=== PATIENT | female | born 1945 | race Caucasian/White ===

== ENCOUNTER 2016-02-14 08:46 | Emergency (ER) | payer MEDICARE, BC ==
[2016-02-14 08:57] VITALS: BP 116/67
--- NOTE | 2016-02-14 09:11 | ERNOTE ---
Medical Problem HPI - General Chief Complaint: Dyspnea Source: patient Exam Limitations: dementia - Immun/Allergies/Home Medications Immunizations: IMMUNIZATION HX Immunizations Up to Date Yes History of Influenza Vaccine More Information Required Hx Pneumococcal Vaccination No Allergies/Adverse Reactions: Allergies phenobarbital Adverse Reaction (Mild, Verified 02/14/16 08:57) rash phenytoin sodium [From Dilantin] Adverse Reaction (Mild, Verified 02/14/16 08:57 ) rash phenytoin sodium extended [From Dilantin] Adverse Reaction (Mild, Verified 02/13 08:57) rash Home Medications: HOME MEDICATIONS Aspirin [Aspirin EC] 81 mg PO DAILY 12/28/14 [Last Taken 03/15/15] Cholecalciferol (Vitamin D3) [Vitamin D3] 10,000 unit PO DAILY 12/28/14 [Last Taken 03/15/15] Levothyroxine Sodium [Synthroid] 88 mcg PO DAILY 12/28/14 [Last Taken 03/15/15] Montelukast Sodium [Singulair] 10 mg PO HS 12/28/14 [Last Taken 03/15/15] Valproic Acid (As Sodium Salt) [Valproic Acid] 250 mg PO BID 12/28/14 [Last Taken 03/15/15] Citalopram Hydrobromide [Citalopram HBr] 40 mg PO DAILY #30 tablet 03/17/15 [ Last Taken Unknown] Vit B12/Lmefolate Ca/Vit B6/B2 [Cerefolin Tablet] 1 each PO DAILY 03/17/15 [ Last Taken Unknown] Memantine HCl [Namenda] 5 mg PO DAILY 11/15/15 [Last Taken Unknown] - History of Present History Narrative: Patient has not been feeling well for 2-3 days per family. Patient denies any complaints. Does not know why she is here today. Review of Systems - Review of Systems Constitutional: Absent: recent illness, fever EYE: Absent: vision changes ENT: Absent: ear pain, nose congestion, nasal drainage, sore throat Respiratory: Absent: shortness of breath, cough Cardiology: Absent: chest pain Gastrointestinal/Abdominal: Absent: nausea, vomiting, abdominal pain Genitourinary: Absent: frequency, dysuria Skin: Absent: rash Neurological: Absent: headache, weakness, numbness - Patient's Past Medical History Patient History - Medical: Alzheimer's Disease, Anxiety, Dementia, Depression, Hypothyroidism, Seizures Patient History - Cardiac/Respiratory: No pertinent hx, Hyperlipidemia Patient History - Cancer: No Hx of Cancer Patient History - Surgical Procedures: Hysterectomy - Family History Mother Family History - Medical: Father Family History - Medical: - Social History Living Situations: home Does anyone smoke in the home?: No Alcohol Use: none Drug Use: none Physical Exam - Physical Exam General Appearance: Present: wd/wn, alert, no apparent distress Eye Exam: Normal inspection: bilateral, PERRL: bilateral, EOMI: bilateral Ears, Nose, Throat: Present: normal ENT inspection, hearing grossly normal, normal pharynx Neck: Present: normal inspection Respiratory: Present: no respiratory distress, normal breath sounds, no accessory muscle use, lungs clear Cardiovascular/Chest: Present: regular rate, rhythm, no murmur Gastrointestinal/Abdominal: Present: nontender, soft Neurological Exam: Present: alert, normal mood/affect, no motor/sensory deficits , cement paver II-XII nml as tested, other - knows month, but not sure about day or year , knows location, does not know who her doctor is Skin Exam: Present: normal color, warm/dry Lymphatic Exam: Present: no adenopathy ED Progress - Results and Orders Patient's Lab Results:: I have reviewed the patient's lab results. - Vital Signs Patient's Vital Signs:: I have reviewed the patient's vital signs. Vital Signs: Vital Signs 02/14/16 08:52 Temperature 36.6 C Pulse Rate 83 Respiratory 16 Rate Blood Pressure 116/67 O2 Sat by Pulse 99 Oximetry - Progress/Reassessment Chief Complaint: Dyspnea Progress Note-Subjective: 02/14/16 11:04 discussed results with patient and son Departure - Departure Clinical Impression: Generalized weakness Disposition: Home self-care Condition: Good Instructions: Weakness, [id number] Additional Instructions: call your doctor for follow up Referrals: Steve Jenkins MD [Staff Physician] -
[2016-02-14 09:25] LABS: Hematocrit 44.4 % (37.0-47.0); Hemoglobin 15.1 gm/dL (12.5-16.0); Mean Cell Volume 96.5 fl (78-100); Mean Corpuscular Hemoglobin 32.8 pg (27-31); Mean Platelet Volume 9.3 fl (6.0-9.5); Neutrophil # 4.7 K/mm3 (1.3-6.0); Neutrophil % 61.8 % (42-75.0); Platelet Count 223 K/mm3 (150-450); Red Cell Distribution Width 12.8 % (11.5-14.0); White Blood Count 7.5 K/mm3 (4.0-10.5)
[2016-02-14 09:39] LABS: Albumin * 3.7 gm/dl (3.4-5.0); Anion Gap 16.4 mmol/L (6.8-13.8); BUN/Creatinine Ratio 18.2 (9.0-21.6); Bilirubin, Total 0.5 mg/dL (0.0-1.1); Calcium * 9.1 mg/dL (7.9-10.9); Carbon Dioxide 27.7 mmol/L (24-32.6); Potassium 3.1 mmol/L (3.4-4.6); Total Protein 7.6 gm/dL (6.2-8.2); Valproic Acid 88.5 mcg/mL (50.0-100.0)
[2016-02-14 10:35] LABS: Urine Bilirubin Negative (NEGATIVE); Urine Blood Negative /ul (NEGATIVE); Urine Ketone Negative (NEGATIVE); Urine Nitrite Negative (NEGATIVE); Urine Protein 30 mg/dL (NEGATIVE); Urine Specific Gravity 1.025 SP.GR. (1.005-1.010); Urine Urobilinogen Normal (NORMAL)
[2016-02-14 10:43] LABS: Urine Appearance Clear; Urine Bacteria TRACE; Urine Color Yellow; Urine RBC 0-5 /hpf (0-5)
== END 2016-02-14 11:10 | disposition home or self-care (01) ==
LOC: ER 08:46
DX: R53.1 Weakness (principal); G30.9 Alzheimer's disease, unspecified; F02.80 Dementia in other diseases classified elsewhere, unspecified severity, without behavioral disturbance, psychotic disturbance, mood disturbance, and anxiety

== ENCOUNTER 2016-04-29 10:54 | Observation (INO) | payer OTHER, MEDICARE ==
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
[2016-04-29] MEDS ORDERED: NORMAL SALINE 1,000 ML IV ONE (12:58)
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
[2016-04-29] MEDS: ACETAMINOPHEN 325 MG TABLET PO PRN (18:51)
[2016-04-29 20:38] LABS: Hematocrit 34.4 % (37.0-47.0); Hemoglobin 11.9 gm/dL (12.5-16.0); Mean Cell Volume 96.6 fl (78-100); Mean Corpuscular Hemoglobin 33.4 pg (27-31); Mean Corpuscular Hgb Conc 34.6 g/dl (32-36); Mean Platelet Volume 9.7 fl (6.0-9.5); Neutrophil % 74.5 % (42-75.0); Platelet Count 164 K/mm3 (150-450); Red Blood Count 3.56 M/mm3 (4.2-5.4); Red Cell Distribution Width 12.3 % (11.5-14.0); White Blood Count 12.1 K/mm3 (4.0-10.5)
[2016-04-29 20:55] LABS: Albumin * 2.8 gm/dl (3.4-5.0); BUN/Creatinine Ratio 12.5 (9.0-21.6); Bilirubin, Total 0.5 mg/dL (0.0-1.1); Ca. Corrected For Albumin 8.8 mg/dL (8.4-10.2); Calcium * 8.2 mg/dL (7.9-10.9); Carbon Dioxide 26.1 mmol/L (24-32.6); Potassium 4.1 mmol/L (3.4-4.6); Total Protein 5.9 gm/dL (6.2-8.2)
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
[2016-04-30] MEDS: ACETAMINOPHEN 325 MG TABLET PO PRN ×2 (01:16→06:41)
[2016-04-30 06:52] VITALS: BP 125/55
[2016-04-30] MEDS ORDERED: VITAMIN B COMP W-C 1 TAB TABLET PO SCH (09:00)
[2016-04-30] MEDS ORDERED: B2 PO SCH (09:00)
[2016-04-30] MEDS ORDERED: MEMANTINE HCL 10 MG TABLET PO SCH (09:00)
[2016-04-30] MEDS ORDERED: busPIRone HCL 5 MG TABLET PO SCH (09:00)
[2016-04-30] MEDS ORDERED: VALPROIC ACID 250 MG/5 ML PO SCH ×2 (09:00→21:00)
[2016-04-30] MEDS ORDERED: LMEFOLATE CA PO SCH (09:00)
[2016-04-30] MEDS ORDERED: CHOLECALCIFEROL 5,000 UNIT TABLET PO SCH (09:00)
[2016-04-30] MEDS ORDERED: ASPIRIN 81 MG TABLET.DR PO SCH (09:00)
[2016-04-30] MEDS ORDERED: VIT B12 PO SCH (09:00)
[2016-04-30] MEDS ORDERED: VIT B6 PO SCH (09:00)
[2016-04-30] MEDS ORDERED: ONDANSETRON 4 MG TAB.RAPDIS PO STA (10:10)
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
[2016-04-30] MEDS ORDERED: CITALOPRAM HYDROBROMIDE 20 MG TABLET PO SCH (21:00)
[2016-04-30] MEDS ORDERED: MONTELUKAST SODIUM 10 MG TABLET PO SCH (21:00)
== END 2016-04-30 11:46 | disposition home or self-care (01) ==
LOC: ER 10:54 → MS 16:21
PROVIDERS: ADMIT Internal Medicine; ATTEND Internal Medicine
PROC: 0RSKXZZ Reposition Left Shoulder Joint, External Approach (ICD-10-PCS; principal; 2016-04-29)
PROC: 0PSDXZZ Reposition Left Humeral Head, External Approach (ICD-10-PCS; 2016-04-29)
DX: S42.252A Displaced fracture of greater tuberosity of left humerus, initial encounter for closed fracture (principal); S43.015A Anterior dislocation of left humerus, initial encounter; G30.9 Alzheimer's disease, unspecified; F02.80 Dementia in other diseases classified elsewhere, unspecified severity, without behavioral disturbance, psychotic disturbance, mood disturbance, and anxiety; E03.9 Hypothyroidism, unspecified; V43.62XA Car passenger injured in collision with other type car in traffic accident, initial encounter; Y92.411 Interstate highway as the place of occurrence of the external cause
CPT/HCPCS: 23665; 36415; 71010; 73020; 73030; 73060; 80053; 85025; 99284; G0378

== ENCOUNTER 2016-10-29 22:21 | Inpatient (IN) | payer MEDICARE, BC ==
[2016-10-29 22:55] LABS: Hematocrit 34.9 % (37.0-47.0); Hemoglobin 12.1 gm/dL (12.5-16.0); Mean Cell Volume 96.1 fl (78-100); Mean Corpuscular Hemoglobin 33.3 pg (27-31); Mean Corpuscular Hgb Conc 34.7 g/dl (32-36); Mean Platelet Volume 9.2 fl (6.0-9.5); Neutrophil # 5.6 K/mm3 (1.3-6.0); Neutrophil % 66.7 % (42-75.0); Platelet Count 217 K/mm3 (150-450); Red Blood Count 3.63 M/mm3 (4.2-5.4); Red Cell Distribution Width 12.6 % (11.5-14.0); White Blood Count 8.4 K/mm3 (4.0-10.5)
[2016-10-29 23:09] LABS: Albumin * 2.9 gm/dl (3.4-5.0); Bilirubin, Total 0.2 mg/dL (0.0-1.1); Ca. Corrected For Albumin 9.1 mg/dL (8.4-10.2); Calcium * 8.5 mg/dL (7.9-10.9); Carbon Dioxide 26.5 mmol/L (24-32.6); Total Protein 6.4 gm/dL (6.2-8.2)
[2016-10-29 23:15] LABS: Anion Gap 14.6 mmol/L (6.8-13.8); Potassium 3.1 mmol/L (3.4-4.6)
[2016-10-29 23:23] LABS: Urine Bilirubin Negative (NEGATIVE); Urine Blood Negative /ul (NEGATIVE); Urine Ketone Negative (NEGATIVE); Urine Nitrite Negative (NEGATIVE); Urine Protein Negative (NEGATIVE); Urine Specific Gravity 1.025 SP.GR. (1.005-1.010); Urine Urobilinogen Normal (NORMAL)
[2016-10-29] MEDS ORDERED: LEVOFLOXACIN/D5W 500 MG/100 ML BAG IV SCH (23:30)
[2016-10-29] MEDS: NORMAL SALINE IV PRN (23:33)
[2016-10-29 23:36] LABS: Urine Amorphous Sediment Few - 1+ (NONE-FEW); Urine Appearance Clear; Urine Bacteria None Seen; Urine Color Yellow; Urine RBC None Seen /hpf (0-5); Urine WBC None Seen /hpf (0-5)
[2016-10-29 23:38] LABS: Cocaine Ur Negative (NEGATIVE); Urine Barbiturate Negative (NEGATIVE); Urine Benzodiazepines Negative (NEGATIVE); Urine PCP Negative (NEGATIVE); Urine THC Negative (NEGATIVE)
[2016-10-29 23:46] LABS: Urine Opiates Negative (NEGATIVE)
[2016-10-29] MEDS ORDERED: POTASSIUM CHLORIDE 20 MEQ TABLET.SA PO ONE (23:51)
[2016-10-29] MEDS ORDERED: POTASSIUM CHLORIDE 20 MEQ TABLET.SA ONE (23:53)
--- NOTE | 2016-10-29 23:55 | ERNOTE ---
Neuro HPI ER Record Time Seen by Provider: 10/29/16 22:27 Source: family, EMS Exam Limitations: no limitations Immunizations: IMMUNIZATION HX Immunizations Up to Date unknown History of Influenza Vaccine More Information Required Hx Pneumococcal Vaccination No Allergies/Adverse Reactions: Allergies Allergy/AdvReac Type Severity Reaction Status Date / Time buspirone AdvReac Mild Fatigue Verified 10/29/16 23:03 phenobarbital AdvReac Mild rash Verified 02/14/16 08:57 phenytoin sodium AdvReac Mild rash Verified 02/14/16 08:57 [From Dilantin] phenytoin sodium extended AdvReac Mild rash Verified 02/14/16 08:57 [From Dilantin] Home Medications: HOME MEDICATIONS Aspirin [Aspirin EC] 81 mg PO DAILY 12/28/14 [Last Taken 03/15/15] Montelukast Sodium [Singulair] 10 mg PO HS 12/28/14 [Last Taken 03/15/15] Valproic Acid (As Sodium Salt) [Valproic Acid] 250 mg PO BID 12/28/14 [Last Taken 03/15/15] Memantine HCl [Namenda] 5 mg PO HS 11/15/15 [Last Taken Unknown] Acetaminophen [Tylenol] 2 tab PO Q6H 04/29/16 [Last Taken Unknown] Levothyroxine Sodium [Synthroid] 88 mcg PO DAILY 04/29/16 [Last Taken Unknown] Vit B Comp/C/FA/Iron/Vit E [Vitamin B Complex Tablet] 1 each PO DAILY 04/29/16 [ Last Taken Unknown] busPIRone HCL [Buspar] 10 mg PO BID 04/29/16 [Last Taken Unknown] Ondansetron [Zofran Odt] 4 mg PO Q6H PRN #20 tab 04/30/16 [Last Taken Unknown] Citalopram Hydrobromide [Celexa] 40 mg PO HS 10/29/16 [Last Taken Unknown] Ondansetron HCl [Zofran] 4 mg PO PRN PRN 10/29/16 [Last Taken Unknown] Potassium Chloride [Klor-Con Sprinkle] 10 meq PO DAILY 10/29/16 [Last Taken Unknown] - History of Present Illness Narrative: This patient has a history of seizure disorder that she has had her whole life. The reason she is brought in by EMS because son noted that the patient had to 15 second episodes of tonic-clonic activity. Vision is also had a recent history of UTI. Son also states that mother has significant dementia. Review of Systems - Review of Systems Constitutional: Present: no symptoms reported EYE: Present: no symptoms reported ENT: Present: no symptoms reported Respiratory: Present: no symptoms reported Cardiology: Present: no symptoms reported Gastrointestinal/Abdominal: Present: no symptoms reported Genitourinary: Present: no symptoms reported Musculoskeletal: Present: no symptoms reported - Patient's Past Medical History Patient History - Medical: History Unknown, Alzheimer's Disease, Anxiety, Dementia, Depression, Hypothyroidism, Seizures Patient History - Cardiac/Respiratory: History Unknown Patient History - Cancer: History Unknown Patient History - Surgical Procedures: Noncontributory, Hysterectomy Patient History - Other: None LMP (females 10-50): Menopausal - Family History Mother Family History - Medical: Father Family History - Medical: - Social History Living Situations: home Abuse History: No History of abuse Psych History: Hx of Anxiety Does anyone smoke in the home?: No Alcohol Use: none Drug Use: none - Immunizations Immunizations Up to Date: - unknown Hx Pneumococcal Vaccination: No History of Influenza Vaccine: More Information Required to Determine Physical Exam - Physical Exam General Appearance: Present: wd/wn, other - patient does have dementia and she stares at me and not from time to time however she is not responding verbally so I am unable to tell if she is alert and oriented to time place or person Eye Exam: Normal inspection: bilateral, PERRL: bilateral, EOMI: bilateral Ears, Nose, Throat: Present: normal ENT inspection Neck: Present: normal inspection, nontender Respiratory: Present: no respiratory distress, normal breath sounds, no accessory muscle use, chest nontender, lungs clear Cardiovascular/Chest: Present: regular rate, rhythm, no murmur, normal peripheral pulses Gastrointestinal/Abdominal: Present: normal bowel sounds, nontender, nondistended, soft Back Exam: Present: normal inspection Extremity Exam: Present: normal inspection, normal range of motion Neurological Exam: Present: other - patient is awake but she is not speaking so I am unable to tell if she is alert and oriented she does not have any focal neurological deficits facial droop ED Progress - Results and Orders Patient's Lab Results:: I have reviewed the patient's lab results. - Vital Signs Patient's Vital Signs:: I have reviewed the patient's vital signs. Vital Signs: Vital Signs 10/29/16 10/29/16 10/29/16 22:30 23:07 23:34 Temperature 36.6 C 37.6 C H Pulse Rate 109 H 105 H 100 Respiratory 17 19 Rate Blood Pressure 150/66 146/56 143/92 O2 Sat by Pulse 92 95 98 Oximetry - X-Ray X-Ray #1 X-Ray: chest - CT/Ultrasound CT/Ultrasound Narrative: DT was read by radiologist as negative - Progress/Reassessment Chief Complaint: Seizure Activity Plan - Plan Plan: Patient head CT is negative for an acute bleed her blood work reveals that she has lactic acid of 3.4 at this time we will go ahead and admit the patient for sepsis hospitalist with consultation. Departure Clinical Impression: Sepsis Qualifiers: Sepsis type: sepsis due to unspecified organism Qualified Code(s): A41.9 - Sepsis, unspecified organism - Departure Disposition: [facility] Condition: Fair Referrals: Steve Jenkins MD [Primary Care Provider] -
[2016-10-30] MEDS ORDERED: LORazepam 2 MG/ML DISP.SYRIN ONE ×2 (00:11→00:14)
[2016-10-30] MEDS ORDERED: LORazepam 2 MG/ML DISP.SYRIN IV ONE (00:14)
[2016-10-30] MEDS ORDERED: LORazepam 2 MG/ML DISP.SYRIN IV STA (00:24)
[2016-10-30] MEDS: NORMAL SALINE IV PRN ×2 (00:31→02:30)
[2016-10-30] MEDS ORDERED: ACETAMINOPHEN 325 MG TABLET PO ONE (01:28)
[2016-10-30] MEDS ORDERED: ACETAMINOPHEN 650 MG SUPP.RECT RC STA (01:56)
[2016-10-30] MEDS ORDERED: ACETAMINOPHEN 650 MG SUPP.RECT ONE (01:58)
[2016-10-30] MEDS ORDERED: LORazepam 2 MG/ML DISP.SYRIN IV PRN (02:05)
[2016-10-30] MEDS ORDERED: METOPROLOL TARTRATE 1 MG/ML AMPUL IV ONE (02:12)
--- NOTE | 2016-10-30 03:27 | HP ---
Chief Complaint - Chief Complaint Date of Service: 10/30/16 Time of Service: 02:10 Chief Complaint: Seizure activities History of Present Illness: 71 years old female adm to the hospital with reports of seizure activities at home. PMH significant for dementia,hypothyroidism,childhood Epilepsy, depression ,hyperlipidemia and anxiety. Per Reinaldo (son) pt lives alone and her sons spend alternating days with her. Today while at home with Reinaldo approximately 8pm pt had a witness Tonic clonic seizure. At 10:30pm she had another episode of tonic clonic seizure. The family was concerned and brought her to the ER. pt last episode of seizure was a year ago, she had 1-[address] Jenkins adjusted her medications. since then today is the first time she is having a episode. 2 weeks ago she was treated with Bactrim x10 days for UTI. In ER UA negative, CXR : No acute cardiopulmonary process. Reinaldo denies pt having fever, chills or have change in her behavior. While in ER she had another episode of Tonic Clonic seizure and bit her tongue. Lactic acid 3.4--->3.9, temp 38--->37.9 and BP elevated likely due to seizure activity and 3L IVF bolus given. Plan of care discussed with son he verbalized understand and agrees. - Patient's Past Medical History Patient History - Medical: History Unknown, Alzheimer's Disease, Anxiety, Dementia, Depression, Hypothyroidism, Seizures Patient History - Cardiac/Respiratory: History Unknown Patient History - Cancer: History Unknown Patient History - Surgical Procedures: Noncontributory, Hysterectomy, Other - closed left shoulder fx dislocation reduction Patient History - Other: None LMP (females 10-50): Menopausal - Family History Mother Family History - Medical: Father Family History - Medical: - Social History Living Situations: home Abuse History: No History of abuse Psych History: Hx of Anxiety, Hx of Depression Does anyone smoke in the home?: No Smoking Status: Unknown if ever smoked Have you smoked in the past 12 months: No Alcohol Use: none Drug Use: none - Immunizations Immunizations Up to Date: - unknown Hx Pneumococcal Vaccination: No History of Influenza Vaccine: More Information Required to Determine Review Of Systems (GEN) - Review of Systems Generalized/Overall Review: Present: No Symptoms Reported EENTM: Present: No Symptoms Reported Respiratory: Present: No Symptoms Reported Cardiac: Present: No Symptoms Reported Abdominal: Present: No Symptoms Reported Genitourinary: Present: No Symptoms Reported Musculoskeletal: Present: No Symptoms Reported Neurological: Present: Seizure Skin: Present: No Symptoms Reported Endocrine: Present: No Symptoms Reported Additional Comments: unable to obtain information from pt. Pt has history of dementia and s/p seizure and currently in postictal state. Information obtained from son that was with patient during the day. Allergies/Adverse Reactions: Allergies Allergy/AdvReac Type Severity Reaction Status Date / Time buspirone AdvReac Mild Fatigue Verified 10/29/16 23:03 phenobarbital AdvReac Mild rash Verified 02/14/16 08:57 phenytoin sodium AdvReac Mild rash Verified 02/14/16 08:57 [From Dilantin] phenytoin sodium extended AdvReac Mild rash Verified 02/14/16 08:57 [From Dilantin] Home Medications: HOME MEDICATIONS Aspirin [Aspirin EC] 81 mg PO DAILY 12/28/14 [Last Taken 03/15/15] Montelukast Sodium [Singulair] 10 mg PO HS 12/28/14 [Last Taken 03/15/15] Valproic Acid (As Sodium Salt) [Valproic Acid] 250 mg PO BID 12/28/14 [Last Taken 03/15/15] Memantine HCl [Namenda] 5 mg PO HS 11/15/15 [Last Taken Unknown] Acetaminophen [Tylenol] 2 tab PO Q6H PRN 04/29/16 [Last Taken Unknown] Levothyroxine Sodium [Synthroid] 88 mcg PO DAILY 04/29/16 [Last Taken Unknown] Vit B Comp/C/FA/Iron/Vit E [Vitamin B Complex Tablet] 1 each PO DAILY 04/29/16 [ Last Taken Unknown] Citalopram Hydrobromide [Celexa] 40 mg PO HS 10/29/16 [Last Taken Unknown] Exam - Exam Vital Signs: Vital Signs - Last Taken Temp 37.4 C 10/30/16 02:15 Pulse 119 H 10/30/16 02:44 Resp 26 H 10/30/16 02:15 BP 122/80 10/30/16 02:44 Pulse Ox 99 10/30/16 02:44 Constitutional: Present: Well developed, Elderly ENT Exam: Present: hearing grossly normal Eye Exam: bilateral eye: normal inspection Neck: Present: full range of motion Back Exam: Present: normal inspection Breasts: Present: Exam deferred Respiratory: Present: chest non-tender, lungs clear, normal breath sounds, no respiratory distress Cardiovascular/Chest: Present: normal peripheral pulses, regular rate, rhythm, no chest tenderness Peripheral Pulses: dorsalis-pedis (R): 3+, dorsalis-pedis (L): 3+ Abdomen: Present: Normal bowel sounds, soft, nontender, nondistended Extremity: Present: normal range of motion, non-tender Skin Exam: Present: normal color, warm/dry Neurologic: Present: other - postictal. Absent: oriented x 3 Appearance: Present: impaired insight, impaired recent memory Thoughts: Present: other - dementia Diagnostic Studies: Abnormal Lab Results 10/30/16 Range/Units 01:00 Lactic Acid, Venous 3.9 H* (0.4-1.9) mmol/L Laboratory Results WBC 8.4 K/mm3 (4.0-10.5) 10/29/16 22:50 RBC 3.63 M/mm3 (4.2-5.4) L 10/29/16 22:50 Hgb 12.1 gm/dL (12.5-16.0) L 10/29/16 22:50 Hct 34.9 % (37.0-47.0) L 10/29/16 22:50 MCV 96.1 fl (78-100) 10/29/16 22:50 MCH 33.3 pg (27-31) H 10/29/16 22:50 MCHC 34.7 g/dl (32-36) 10/29/16 22:50 RDW 12.6 % (11.5-14.0) 10/29/16 22:50 Plt Count 217 K/mm3 (150-450) 10/29/16 22:50 MPV 9.2 fl (6.0-9.5) 10/29/16 22:50 Immature Gran % (Auto) 1.20 % (0.001-0.429) H 10/29/16 22:50 Immature Gran # (Auto) 0.10 K/mm3 (0.000-0.0310) H 10/29/16 22:50 Neutrophils % 66.7 % (42-75.0) 10/29/16 22:50 Lymphocytes % 23.0 % (20-51) 10/29/16 22:50 Monocytes % 8.3 % (0.0-9) 10/29/16 22:50 Eosinophils % 0.4 % (0.0-3.0) 10/29/16 22:50 Basophils % 0.4 % (0.0-1.0) 10/29/16 22:50 Nucleated RBC % 0.0 k/mm3 (0-1) 10/29/16 22:50 Neutrophils # 5.6 K/mm3 (1.3-6.0) 10/29/16 22:50 Lymphocytes # 1.9 k/mm3 (1.5-3.5) 10/29/16 22:50 Monocytes # 0.7 k/mm3 (0.0-1.0) 10/29/16 22:50 Eosinophils # 0.0 k/mm3 (0.0-0.7) 10/29/16 22:50 Absolute Basophils 0.0 k/mm3 (0.0-0.1) 10/29/16 22:50 Sodium 139 mmol/L (132-142) 10/29/16 22:50 Plasma Sodium 139 mmol/L (130-142) 10/29/16 22:50 Potassium 3.1 mmol/L (3.4-4.6) L 10/29/16 22:50 Chloride 101 mmol/L (97-106) 10/29/16 22:50 Carbon Dioxide 26.5 mmol/L (24-32.6) 10/29/16 22:50 Anion Gap 14.6 mmol/L (6.8-13.8) H 10/29/16 22:50 BUN 8 mg/dL (3-23) D 10/29/16 22:50 Creatinine 0.80 mg/dL (0.4-1.4) 10/29/16 22:50 Est GFR (Non-Af Amer) 75 mL/min (60-130) 10/29/16 22:50 BUN/Creatinine Ratio 10.0 (9.0-21.6) 10/29/16 22:50 Random Glucose 101 mg/dL (70-110) 10/29/16 22:50 Lactic Acid, Venous 3.9 mmol/L (0.4-1.9) H* 10/30/16 01:00 Calcium 8.5 mg/dL (7.9-10.9) 10/29/16 22:50 Calcium Adj for Albumin 9.1 mg/dL (8.4-10.2) 10/29/16 22:50 Total Bilirubin 0.2 mg/dL (0.0-1.1) 10/29/16 22:50 AST 18 U/L (0-48) 10/29/16 22:50 ALT 12 U/L (19-67) L 10/29/16 22:50 Alkaline Phosphatase 69 U/L (50-170) 10/29/16 22:50 Total Protein 6.4 gm/dL (6.2-8.2) 10/29/16 22:50 Albumin 2.9 gm/dl (3.4-5.0) L 10/29/16 22:50 Urine Color Yellow 10/29/16 23:00 Urine Appearance Clear 10/29/16 23:00 Urine pH 6.0 pH (5.0-7.0) 10/29/16 23:00 Ur Specific [place] 1.025 SP.GR. (1.005-1.010) 10/29/16 23:00 Urine Protein Negative mg/dL (NEGATIVE) 10/29/16 23:00 Urine Glucose (UA) Negative mg/dL (NEGATIVE) 10/29/16 23:00 Urine Ketones Negative mg/dL (NEGATIVE) 10/29/16 23:00 Urine Blood Negative /ul (NEGATIVE) 10/29/16 23:00 Urine Nitrate Negative (NEGATIVE) 10/29/16 23:00 Urine Bilirubin Negative mg/dl (NEGATIVE) 10/29/16 23:00 Urine Urobilinogen Normal EU/dl (NORMAL) 10/29/16 23:00 Ur Leukocyte Esterase Negative /ul (NEGATIVE) 10/29/16 23:00 Urine RBC None seen /hpf (0-5) 10/29/16 23:00 Urine WBC None seen /hpf (0-5) 10/29/16 23:00 Ur Epithelial Cells None seen /hpf (0-5) 10/29/16 23:00 Amorphous Sediment Few - 1+ (NONE-FEW) 10/29/16 23:00 Urine Bacteria None seen (NONE) 10/29/16 23:00 Urine Culture Comments No culture indicated 10/29/16 23:00 Urine Opiates Screen Negative (NEGATIVE) 10/29/16 23:00 Barbiturate Screen Negative (NEGATIVE) 10/29/16 23:00 Valproic Acid 60.1 mcg/mL (50.0-100.0) 10/29/16 22:50 Ur Phencyclidine Scrn Negative (NEGATIVE) 10/29/16 23:00 Urine Amphetamine Negative (NEGATIVE) 10/29/16 23:00 U Benzodiazepines Scrn Negative (NEGATIVE) 10/29/16 23:00 Urine Cocaine Screen Negative (NEGATIVE) 10/29/16 23:00 Urine Marijuana (THC) Negative (NEGATIVE) 10/29/16 23:00 Assessment/Plan - Narrative Narrative: ? sepsis vs Sirs : reactive from seizure activity. On adm lactic acid 3.4--->3.9 elevation possible due to seizure activity Temp 38--->37.9, WBC 8.4 3L bolus given in ER pt was treated 2 weeks ago for UTI, she completed Bactrim x10 days. Repeated UA negative levaquin was given in the ER, stopped due to concern in lowering seizure threshold Epilepsy: pt s/p seizure and currently postictal state CT head negative for acute bleeding pt with history of childhood seizures. Valproic acid BID and level currently 60.1 stable Pt prior seizures was a year ago and her medication was switched at the time. Safety measures while hospitalized Ativan PRN, continue to monitor supplemented oxygen. Hypertension: Bp was elevated secondary to seizure activity Its gradually improving monitor to monitor vital signs. Hyperlipidemia- stable Resume home medication Hypothyroidism- stable continue with home medications Depression- stable continue home medications Code status; DNR VTE ppx: SCD GI ppx: Pepcid Previous charts reviewed and spoke with relatives via phone conversation. Time 50 minutes - Assessment/Plan (1) Epilepsy Problem: Chronic (2) Hyperlipidemia Problem: Chronic (3) Hypothyroidism Problem: Chronic (4) Hypertension Problem: Chronic
[2016-10-30 06:46] LABS: Anion Gap 12.6 mmol/L (6.8-13.8); BUN/Creatinine Ratio 9.2 (9.0-21.6); Calcium * 7.9 mg/dL (7.9-10.9); Carbon Dioxide 27.7 mmol/L (24-32.6); Estimated Creat Clear 60.1; Potassium 4.3 mmol/L (3.4-4.6)
[2016-10-30 07:22] LABS: Troponin I 0.569 ng/ml (0.00-0.10)
[2016-10-30 07:24] LABS: CKMB 2.3 ng/mL (0.0-9.0)
[2016-10-30] MEDS ORDERED: DIVALPROEX SODIUM 250 MG TABLET.DR PO SCH (09:00)
[2016-10-30] MEDS: ENOXAPARIN SODIUM 40 MG/0.4 ML SYRG SC SCH (09:53)
[2016-10-30] MEDS ORDERED: ACETAMINOPHEN 325 MG TABLET PO PRN (14:10)
[2016-10-30] MEDS: VALPROIC ACID 250 MG/5 ML PO SCH ×2 (14:34→20:14)
[2016-10-30] MEDS: LEVOTHYROXINE SODIUM 88 MCG TABLET PO SCH (14:53)
[2016-10-30] MEDS: VITAMIN B COMP W-C 1 TAB TABLET PO SCH (14:53)
[2016-10-30] MEDS: NORMAL SALINE 1,000 ML IV PRN (21:10)
[2016-10-31] MEDS: NORMAL SALINE 1,000 ML IV PRN ×2 (07:17→17:29)
--- NOTE | 2016-10-31 07:22 | PN ---
Subjective - Date and Time Seen Date: 10/31/16 Time: 07:04 Subjective Narrative: Report by nurse and hospitalist: bleeding from tongue has slowed. Pt. wakes up more but is still very somnolent. Is swallowing pills if crushed. Complains of left shoulder pain - xray negative for dislocation. Objective - Review of Systems Generalized/Overall Review: Reports: Weakness, Fatigue EENTM: Reports: Other - tongue pain Respiratory: Reports: No Symptoms Reported Cardiac: Reports: Chest Pain - left sternal border - skeletal pain Abdominal: Reports: No Symptoms Reported Genitourinary Symptoms: Reports: No Symptoms Reported Musculoskeletal Complaints: Reports: Other - left shoulder Neurological: Reports: Weakness, Other - memory issues Skin: Reports: No Symptoms Reported Endocrine: Reports: No Symptoms Reported - Vitals Vitals: Last Vital Signs Temp 37.4 C 10/31/16 06:56 Pulse 110 H 10/31/16 06:56 Resp 20 10/31/16 06:56 BP 146/65 10/31/16 06:56 Pulse Ox 95 10/31/16 06:56 - Abnormal Lab Findings Abnormal Lab Findings: Abnormal Lab Results 10/30/16 Range/Units 12:00 Troponin I 0.193 H* (0.00-0.10) ng/ml - EKG/Xray Findings EKG: supravent. tachycardia - Exam Constitutional: Present: Mild distress, Somnolent ENT Exam: Present: hearing grossly normal Neck: Present: stiff neck Respiratory: Present: lungs clear, normal breath sounds, no respiratory distress , no accessory muscle use, other - tender left sternum and costochondrol area. Cardiovascular/Chest: Present: regular rate, rhythm, no murmur, chest tender Abdomen: Present: Normal bowel sounds, soft, nontender, nondistended, no rebound tenderness, no hepatospenomegaly Extremity: Present: no pedal edema, no calf tenderness, other - SCD's tarsha LE, tender over left shoulder girdle. Skin Exam: Present: normal color Neurologic: Present: depressed affect. Absent: oriented x 3, facial droop Appearance: Present: impaired remote memory Eye contact: Present: decreased rate of speech Thoughts: Present: no apparent hallucination Cauti Physician Documentation - Urinary Catheter Management Urethral (Lang) Urethral Indwelling: Yes Reason for Continuing Indwelling Catheter: Prolonged immobilization Date of Insertion: 10/30/16 Time of Insertion: 00:37 Assessment/Plan - Problems/Diagnosis (1) Tachycardia Problem: Acute Narrative: due to ACS or possibly some dehydration or possibly her baseline. Will add Metoprolol in today given her elevated trop I and concern for ACS. Continue fluids but monitor for volume overload. (2) ACS (acute coronary syndrome) Problem: Acute Narrative: Given elevation in her Trop I this would be a reasonable cause of her sz disorder. Due to her bleeding from her tongue ASA or plavix not given. Will do metoprolol for rate control. (3) Post-ictal state Problem: Acute Narrative: still very somnolent. This could be prolonged post-itctal state as she has underlying dementia and a sz can cause concussive effect on brain, which could maintain her in the somnolent state for several days. This is probably confounded by the Ativan that she was also given to control her sz. Will follow for now, but she is in no condition to be discharged. Will give her another day in the [facility] for close monitoring and probably xfer to [facility] in the am. (4) Seizure Problem: Acute Narrative: stable for now. continue her valproic acid. (5) Shoulder pain Problem: Acute Qualifiers: Chronicity: acute Laterality: left Qualified Code(s): M25.512 - Pain in left shoulder Narrative: ice to the left should as tolerated. prn tylenol. consider arm sling (6) Depression Problem: Chronic Qualifiers: Depression Type: major depressive disorder Major depression recurrence: recurrent Active/Remission status: currently active Major depression episode severity: severe Psychotic features: without psychotic features Qualified Code(s): F33.2 - Major depressive disorder, recurrent severe without psychotic features Narrative: off medication currently due to citalopram can cause sz. (7) Tongue laceration Problem: Acute Narrative: appears to be healing. consideration for gelucell to stop bleeding if becomes perfuse again or consider ENT consult (8) Hypertension Problem: Chronic Narrative: BP's have been stable, add metoprolol for now. (9) Hypothyroidism Problem: Chronic Qualifiers: Hypothyroidism type: acquired Qualified Code(s): E03.9 - Hypothyroidism, unspecified Narrative: follow for now. check TSH due to tachycardia. (10) Discharge planning issues Problem: Acute Narrative: ancticipate her being here several more days, at least until she is alert and able to transfer and ambulate with assistance. may need LTCF placement for awhile to rehab due to shoulder pain/injury and sz issues.
[2016-10-31] MEDS: LEVOTHYROXINE SODIUM 88 MCG TABLET PO SCH (07:36)
[2016-10-31] MEDS: METOPROLOL SUCCINATE 25 MG TABLET.SA PO SCH (09:37)
[2016-10-31] MEDS: VITAMIN B COMP W-C 1 TAB TABLET PO SCH (09:38)
[2016-10-31] MEDS: ENOXAPARIN SODIUM 40 MG/0.4 ML SYRG SC SCH (09:38)
[2016-10-31] MEDS: VALPROIC ACID 250 MG/5 ML PO SCH ×2 (09:39→21:44)
[2016-11-01] MEDS: NORMAL SALINE 1,000 ML IV PRN ×2 (03:52→13:39)
--- NOTE | 2016-11-01 07:06 | PN ---
Subjective - Date and Time Seen Date: 11/01/16 Time: 06:54 Subjective Narrative: Nursing reports that Kayley not wanting to weight bear on left. Complaint of left knee pain when examined. Otherwise no complaints other than her speech is non-sensical at times and she does not appear to be baseline yet. She is eating better, but still sleeping a lot. Objective - Review of Systems Generalized/Overall Review: Reports: Weakness EENTM: Reports: No Symptoms Reported Respiratory: Reports: No Symptoms Reported Cardiac: Reports: No Symptoms Reported Abdominal: Reports: No Symptoms Reported Genitourinary Symptoms: Reports: No Symptoms Reported Musculoskeletal Complaints: Reports: Joint Pain Neurological: Reports: Weakness, Other - memory issues, not to baseline mentation. Denies: Headache Skin: Reports: No Symptoms Reported Endocrine: Reports: No Symptoms Reported - Vitals Vitals: Last Vital Signs Temp 37.0 C 11/01/16 02:00 Pulse 83 11/01/16 04:00 Resp 22 H 11/01/16 02:00 BP 151/66 11/01/16 02:00 Pulse Ox 91 11/01/16 02:00 - EKG/Xray Findings EKG: NSR - Exam Constitutional: Present: Alert, No distress ENT Exam: Present: hearing grossly normal Neck: Present: supple Respiratory: Present: lungs clear, normal breath sounds, no respiratory distress , no accessory muscle use Cardiovascular/Chest: Present: regular rate, rhythm, no murmur Abdomen: Present: Normal bowel sounds, nontender, nondistended, no hepatospenomegaly Extremity: Present: no pedal edema, no calf tenderness, other - left knee very tender to palpation, no rubor, slight calor and edema. ROM very painful Skin Exam: Present: normal color Neurologic: Present: clinic administrator II-XII nml as tested, disoriented x 3. Absent: normal mood/affect - affect is inappropriate Appearance: Present: neat Eye contact: Present: good eye contact, decreased rate of speech, other - speech is garbled or doesn't make sense at times. pt. easily falls asleep when not verbally stimulated. Thoughts: Present: no apparent hallucination Cauti Physician Documentation - Urinary Catheter Management Urethral (Lang) Urethral Indwelling: Yes Reason for Continuing Indwelling Catheter: Prolonged immobilization Date of Insertion: 10/30/16 Time of Insertion: 00:37 Assessment/Plan - Problems/Diagnosis (1) Tachycardia Problem: Acute Narrative: better on metoprolol. continue for now. (2) ACS (acute coronary syndrome) Problem: Acute Narrative: appears stable. will d/c telemetry. start lisinopril for BP control and to prevent cardiac remodeling. (3) Post-ictal state Problem: Acute Narrative: actually believe the prolonged sx are due to post-concussive syndrome which would make sense in a dementia patient who just had tonic-clonic sz. this may take 2 wks minimum and possibly month before she will return to baseline prior to all this. (4) Seizure Problem: Acute Narrative: stable. taking medication. believe etiology of her recent events were cardiac mediated or possibly issues with her citalopram. (5) Shoulder pain Problem: Acute Qualifiers: Chronicity: acute Laterality: left Qualified Code(s): M25.512 - Pain in left shoulder Narrative: strain, will have PT work with her. (6) Depression Problem: Chronic Qualifiers: Depression Type: major depressive disorder Major depression recurrence: recurrent Active/Remission status: currently active Major depression episode severity: severe Psychotic features: without psychotic features Qualified Code(s): F33.2 - Major depressive disorder, recurrent severe without psychotic features Narrative: stable. follow for now. continue off citalopram due to sz risk with it. (7) Tongue laceration Problem: Acute Narrative: healing well. (8) Hypertension Problem: Chronic Narrative: BP's elevated. will start lisinopril (9) Hypothyroidism Problem: Chronic Qualifiers: Hypothyroidism type: acquired Qualified Code(s): E03.9 - Hypothyroidism, unspecified (10) Knee pain, left Problem: Acute Qualifiers: Chronicity: acute Qualified Code(s): M25.562 - Pain in left knee Narrative: will get xray of knee. get PT eval and tx. (11) Post concussion syndrome Problem: Acute Narrative: due to dementia and tonic-clonic sz, TBI - concussion is highly likely and would make sense in light of her sx of still confused worse than baseline, sleeps a lot. will continue to monitor and keep her in a low stimulus room for now. (12) Discharge planning issues Problem: Acute Narrative: possible d/c to NH for rehab vs. prison placement in the next day or two.
[2016-11-01] MEDS: VITAMIN B COMP W-C 1 TAB TABLET PO SCH (08:12)
[2016-11-01] MEDS: METOPROLOL SUCCINATE 25 MG TABLET.SA PO SCH (08:12)
[2016-11-01] MEDS: LEVOTHYROXINE SODIUM 88 MCG TABLET PO SCH (08:12)
[2016-11-01] MEDS: VALPROIC ACID 250 MG/5 ML PO SCH ×2 (08:12→20:59)
[2016-11-01] MEDS: LISINOPRIL 5 MG TABLET PO SCH (08:14)
[2016-11-01] MEDS: ENOXAPARIN SODIUM 40 MG/0.4 ML SYRG SC SCH (10:19)
[2016-11-02] MEDS: LEVOTHYROXINE SODIUM 88 MCG TABLET PO SCH (07:06)
[2016-11-02 07:17] VITALS: BP 142/61
[2016-11-02] MEDS: VITAMIN B COMP W-C 1 TAB TABLET PO SCH (09:12)
[2016-11-02] MEDS: VALPROIC ACID 250 MG/5 ML PO SCH (09:13)
[2016-11-02] MEDS: LISINOPRIL 5 MG TABLET PO SCH (09:13)
[2016-11-02] MEDS: METOPROLOL SUCCINATE 25 MG TABLET.SA PO SCH (09:13)
[2016-11-02] MEDS: ENOXAPARIN SODIUM 40 MG/0.4 ML SYRG SC SCH (09:17)
--- NOTE | 2016-11-02 12:14 | DS ---
(1) Tachycardia Problem: Acute (2) ACS (acute coronary syndrome) Problem: Acute (3) Post-ictal state Problem: Acute (4) Seizure Problem: Acute (5) Shoulder pain Problem: Acute Qualifiers: Chronicity: acute Laterality: left Qualified Code(s): M25.512 - Pain in left shoulder (6) Depression Problem: Chronic Qualifiers: Depression Type: major depressive disorder Major depression recurrence: recurrent Active/Remission status: currently active Major depression episode severity: severe Psychotic features: without psychotic features Qualified Code(s): F33.2 - Major depressive disorder, recurrent severe without psychotic features (7) Tongue laceration Problem: Acute (8) Hypertension Problem: Chronic (9) Hypothyroidism Problem: Chronic Qualifiers: Hypothyroidism type: acquired Qualified Code(s): E03.9 - Hypothyroidism, unspecified (10) Discharge planning issues Problem: Acute Description of Stay: Pt. admitted for intractable seizures after being stable and without seizures for a couple years. Initially it was thought to be infection related, but urine and chest tests revealed no source. She did have a bump in her Trop I therefore ACS was a probable cause of the seizure. Other probable cause was her citalopram, either missing doses or taking additional doses, so this was completely discontinued. It did not appear to be a medication compliance issue with her depakote as her levels were therapeutic. Due to dementia, the tonic clonic sz causing concussive issues and the ativan she was given, she had a prolonged post ictal state, still with sleeping a lot, but with longer periods of being awake and alert. Would anticipate it still taking close to 2 weeks to completely return to baseline. She had left shoulder and knee pain, due to the tonic clonic sz stressing these joints. Xrays were negative for fx. PT was initiated and will be continued in the NH until she has been restored to an ambulatory state, which was her baseline. Tylenol seemed adequate for controlling pain except during transfers where a lift was required. ACS: she was started on metoprolol and lisinopril for ACS and for tachycardia and HTN. Depression: citalopram was d/c'd due to sz risks. Dementia: namenda continued unchanged. She was discharged to [place] for SNF with efforts to try to restore and return to home vs. continued assessment and transition to shelter care. Procedures Performed: none Discharge Disposition: [facility] Disposition: [facility] Condition: Fair Discharge Activity: Activity as tolerated Discharge Diet: General/regular food Discharge Level of Care:: SNF - [facility] Therapy: Physicial Therapy, Occupation Therapy Referrals: Steve Jenkins MD [Primary Care Provider] - Two Weeks Additional Patient Instructions (free text): Please make TCM appointment at discharge, if appropriate. Thank you. [email or web address] ? Prescriptions (Any new or edited meds): Lisinopril [Zestril] 5 mg PO DAILY #30 tablet Metoprolol Succinate 25 mg PO HS #30 tab.er.24h Complete Home Medications List: Complete Home Medication List: Aspirin [Aspirin EC] 81 mg PO DAILY 12/28/14 Montelukast Sodium [Singulair] 10 mg PO HS 12/28/14 Valproic Acid (As Sodium Salt) [Valproic Acid] 250 mg PO BID 12/28/14 Memantine HCl [Namenda] 5 mg PO HS 11/15/15 Acetaminophen [Tylenol] 2 tab PO Q6H PRN 04/29/16 Levothyroxine Sodium [Synthroid] 88 mcg PO DAILY 04/29/16 Vit B Comp/C/FA/Iron/Vit E [Vitamin B Complex Tablet] 1 each PO DAILY 04/29/16 Lisinopril [Zestril] 5 mg PO DAILY #30 tablet 11/02/16 Metoprolol Succinate 25 mg PO HS #30 tab.er.24h 11/02/16
== END 2016-11-02 16:15 | DRG 101 ==
LOC: ER 22:21 → MS 23:55 → OBSVTOIN 10-30 00:30 → INTOOBSV 10-30 00:30 → SCU 10-30 01:21 → OBSVTOIN 10-30 08:02 → MS 10-31 14:22
PROVIDERS: ADMIT Nurse Practitioner; ATTEND Family Medicine
DX: G40.409 Other generalized epilepsy and epileptic syndromes, not intractable, without status epilepticus (principal); I24.9 Acute ischemic heart disease, unspecified; F33.2 Major depressive disorder, recurrent severe without psychotic features; S01.512A Laceration without foreign body of oral cavity, initial encounter; M25.512 Pain in left shoulder; E78.5 Hyperlipidemia, unspecified; E03.9 Hypothyroidism, unspecified; I10 Essential (primary) hypertension; G30.9 Alzheimer's disease, unspecified; F02.80 Dementia in other diseases classified elsewhere, unspecified severity, without behavioral disturbance, psychotic disturbance, mood disturbance, and anxiety
CPT/HCPCS: 36415; 70450; 71010; 73030; 73562; 80048; 80053; 80164; 80307; 81001; 82550; 82553; 83605; 84484; 85025; 87040; 93005; 96365; 96375; 97110; 97162; 97530; 99283; G0378

== ENCOUNTER 2016-12-01 03:46 | Emergency (ER) | payer MEDICARE, BC ==
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
[2016-12-01] MEDS ORDERED: MORPHINE SULFATE 2 MG/ML DISP.SYRIN IV ONE ×3 (04:36→05:23)
[2016-12-01] MEDS ORDERED: ONDANSETRON HCL/PF 2 MG/ML VIAL IV ONE (04:36)
[2016-12-01] MEDS ORDERED: ONDANSETRON HCL/PF 2 MG/ML VIAL ONE (04:38)
[2016-12-01] MEDS ORDERED: MORPHINE SULFATE 2 MG/ML DISP.SYRIN ONE ×3 (04:38→05:22)
[2016-12-01 05:58] VITALS: BP 123/75
[2016-12-01] MEDS ORDERED: ONDANSETRON 4 MG TAB.RAPDIS ONE (07:15)
[2016-12-01] MEDS ORDERED: ONDANSETRON 4 MG TAB.RAPDIS PO ONE (07:16)
[2016-12-01] MEDS ORDERED: HYDROcodone/ACETAMINOPHEN 1 EACH TABLET ONE (07:29)
[2016-12-01] MEDS ORDERED: HYDROcodone/ACETAMINOPHEN 1 EACH TABLET PO ONE (07:30)
== END 2016-12-01 09:21 ==
LOC: ER 03:46
PROC: 2W3MX1Z Immobilization of Left Lower Extremity using Splint (ICD-10-PCS; principal; 2016-12-01)
DX: S82.032A Displaced transverse fracture of left patella, initial encounter for closed fracture (principal); W06.XXXA Fall from bed, initial encounter; Z91.81 History of falling; Y93.9 Activity, unspecified; Y92.122 Bedroom in nursing home as the place of occurrence of the external cause
CPT/HCPCS: 29505; 72170; 73562; 96374; 96375; 99284; J2405

== ENCOUNTER 2016-12-03 09:59 | Emergency (ER) | payer MEDICARE, BC ==
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
[2016-12-03 15:00] VITALS: BP 101/47
== END 2016-12-03 13:45 ==
LOC: ER 09:59
DX: S40.022A Contusion of left upper arm, initial encounter (principal); Y92.129 Unspecified place in nursing home as the place of occurrence of the external cause; W05.0XXA Fall from non-moving wheelchair, initial encounter; E03.9 Hypothyroidism, unspecified; G30.9 Alzheimer's disease, unspecified; F02.80 Dementia in other diseases classified elsewhere, unspecified severity, without behavioral disturbance, psychotic disturbance, mood disturbance, and anxiety; F41.9 Anxiety disorder, unspecified; R56.9 Unspecified convulsions; F32.9 Major depressive disorder, single episode, unspecified

== ENCOUNTER 2017-02-02 08:43 | Inpatient (IN) | payer MEDICARE, BC, OTHER ==
[2017-02-02] MEDS ORDERED: MORPHINE SULFATE 4 MG/ML SYRG IV ONE ×2 (08:56→12:27)
[2017-02-02] MEDS ORDERED: NORMAL SALINE 500 ML IV ONE (08:56)
[2017-02-02] MEDS ORDERED: ONDANSETRON HCL/PF 2 MG/ML VIAL IV ONE (08:56)
[2017-02-02] MEDS ORDERED: MORPHINE SULFATE 4 MG/ML SYRG ONE (08:58)
[2017-02-02] MEDS ORDERED: ONDANSETRON HCL/PF 2 MG/ML VIAL ONE (08:58)
[2017-02-02] MEDS ORDERED: HYDROmorphone HCL 1 MG/ML DISP.SYRIN IV ONE ×2 (09:19→09:54)
[2017-02-02] MEDS ORDERED: HYDROmorphone HCL 1 MG/ML DISP.SYRIN ONE ×2 (09:19→09:54)
--- NOTE | 2017-02-02 09:21 | ERNOTE ---
Lower Extremity HPI - General Lower Extremities Pain: hip: left, other: left - shoulder Time Seen by Provider: 02/02/17 08:53 Source: EMS, [facility] records Exam Limitations: dementia - Immun/Allergies/Home Medications Immunizations: IMMUNIZATION HX Immunizations Up to Date Yes History of Influenza Vaccine Yes Hx Pneumococcal Vaccination Yes Allergies/Adverse Reactions: Allergies Allergy/AdvReac Type Severity Reaction Status Date / Time buspirone AdvReac Mild Fatigue Verified 10/29/16 23:03 phenobarbital AdvReac Mild rash Verified 02/14/16 08:57 phenytoin sodium AdvReac Mild rash Verified 02/14/16 08:57 [From Dilantin] phenytoin sodium extended AdvReac Mild rash Verified 02/14/16 08:57 [From Dilantin] Home Medications: HOME MEDICATIONS Aspirin [Aspirin EC] 81 mg PO DAILY 12/28/14 [Last Taken 03/15/15] Montelukast Sodium [Singulair] 10 mg PO HS 12/28/14 [Last Taken 03/15/15] Valproic Acid (As Sodium Salt) [Valproic Acid] 250 mg PO BID 12/28/14 [Last Taken 03/15/15] Memantine HCl [Namenda] 5 mg PO HS 11/15/15 [Last Taken Unknown] Acetaminophen [Tylenol] 2 tab PO Q6H PRN 04/29/16 [Last Taken Unknown] Levothyroxine Sodium [Synthroid] 88 mcg PO DAILY 04/29/16 [Last Taken Unknown] Vit B Comp/C/FA/Iron/Vit E [Vitamin B Complex Tablet] 1 each PO DAILY 04/29/16 [ Last Taken Unknown] Lisinopril [Zestril] 5 mg PO DAILY #30 tablet 11/02/16 [Last Taken Unknown] Metoprolol Succinate 25 mg PO HS #30 tab.er.24h 11/02/16 [Last Taken Unknown] HYDROcodone/ACETAMINOPHEN [Lorcet 5-325 mg Tablet] 1 each PO QID PRN #20 tablet 12/01/16 [Last Taken Unknown] Citalopram Hydrobromide [Celexa] 40 mg PO QPM 12/03/16 [Last Taken Unknown] clonazePAM [Klonopin] 1 mg PO HS 12/03/16 [Last Taken Unknown] - History of Present Illness Narrative: Patient is a resident in the dementia unit of a local [facility]. Patient was found on the ground with her left leg turned and shortened in complaining of pain and she is also pointing to her left shoulder as a source of pain. Given the underlying dementia patient is going to be a very poor historian and she cannot recount for me exactly what happened. Occurred: just prior to arrival Location of Incident: other - [facility] Method of Injury: Reports: unknown Reason for Fall: Reports: unknown Loss of Consciousness: Reports: unsure Associated Symptoms: Reports: other injuries - left shoulder pain Other Injuries: Reports: extremities - left shoulder Review of Systems - Review of Systems Constitutional: Present: other - I am unable to get an in-depth review of systems due to the underlying dementia EYE: Present: no symptoms reported ENT: Present: no symptoms reported Respiratory: Present: no symptoms reported Cardiology: Present: no symptoms reported Gastrointestinal/Abdominal: Present: no symptoms reported Genitourinary: Present: no symptoms reported Musculoskeletal: Present: no symptoms reported Skin: Present: no symptoms reported Neurological: Present: no symptoms reported Endocrine: Present: no symptoms reported Hematologic/Lymphatic: Present: no symptoms reported Psych: Present: no symptoms reported - Patient's Past Medical History Patient History - Medical: History Unknown, Alzheimer's Disease, Anxiety, Dementia, Depression, Hypothyroidism, Seizures Patient History - Cardiac/Respiratory: History Unknown Patient History - Cancer: History Unknown Patient History - Surgical Procedures: Noncontributory, Hysterectomy, Other Patient History - Other: None LMP (females 10-50): post - Family History Mother Family History - Medical: Father Family History - Medical: - Social History Living Situations: fdc Abuse History: No History of abuse Psych History: Hx of Anxiety, Hx of Depression Smoking Status: Never smoker Alcohol Use: none Drug Use: none - Immunizations Immunizations Up to Date: Yes Hx Pneumococcal Vaccination: Yes History of Influenza Vaccine: Yes Physical Exam - Physical Exam General Appearance: Present: wd/wn, alert, severe distress - patient appears to be in severe distress with any movement or palpation of the left hip as well as attempted movement of the left shoulder, anxious Head Exam: Present: normal inspection, no evidence of injury Eye Exam: Normal inspection: bilateral, PERRL: bilateral Ears, Nose, Throat: Present: normal ENT inspection, H, normal pharynx Neck: Present: normal inspection, nontender Respiratory: Present: no respiratory distress, normal breath sounds, no accessory muscle use, chest nontender, lungs clear Cardiovascular/Chest: Present: regular rate, rhythm, no murmur, normal peripheral pulses Gastrointestinal/Abdominal: Present: normal bowel sounds, nontender, nondistended, soft, no organomegaly Rectal Exam: Present: deferred Back Exam: Present: normal inspection, normal range of motion Extremity Exam: Present: no edema, decreased range of motion - left shoulder and any attempted movement of the left hip elicits pain Neurological Exam: Present: disoriented to person, disoriented to time, disoriented to place, disoriented to situation - secondary to chronic dementia Skin Exam: Present: normal color, warm/dry Lymphatic Exam: Present: no adenopathy ED Progress - Results and Orders Patient's Lab Results:: I have reviewed the patient's lab results. - Vital Signs Patient's Vital Signs:: I have reviewed the patient's vital signs. Vital Signs: Vital Signs 02/02/17 08:49 Temperature 36.7 C Pulse Rate 73 Respiratory 17 Rate Blood Pressure 163/33 O2 Sat by Pulse 99 Oximetry - X-Ray X-Ray #1 X-Ray: hip Interpretation: Reviewed by me X-Ray #2 X-Ray: shoulder Interpretation: Reviewed by me X-Ray #3 X-Ray: chest Interpretation: Reviewed by me - Progress/Reassessment Chief Complaint: Hip Pain/Injury Plan - Plan Plan: Patient will be admitted to Dr. Grace with an orthopedic consult Dr. Busch for surgical correction of the fractured left hip and evaluation of the possible clavicular fracture on the left as well. Departure Clinical Impression: Hip fracture, left Qualifiers: Encounter type: initial encounter Fracture type: closed Qualified Code(s): S72.002A - Fracture of unspecified part of neck of left femur, initial encounter for closed fracture Shoulder pain Qualifiers: Chronicity: chronic Laterality: left Qualified Code(s): M25.512 - Pain in left shoulder; G89.29 - Other chronic pain; G89.29 - Other chronic pain - Departure Disposition: [facility] Condition: Fair Referrals: Philippe Pérez MD [Primary Care Provider] -
[2017-02-02] MEDS: NORMAL SALINE 1,000 ML IV PRN ×3 (09:57→17:01)
[2017-02-02 10:13] LABS: Urine Bilirubin Negative (NEGATIVE); Urine Blood Negative /ul (NEGATIVE); Urine Ketone Negative (NEGATIVE); Urine Nitrite Negative (NEGATIVE); Urine Protein Negative (NEGATIVE); Urine Urobilinogen Normal (NORMAL)
[2017-02-02 10:15] LABS: Hemoglobin 12.6 gm/dL (12.5-16.0); Mean Cell Volume 101.1 fl (78-100); Mean Corpuscular Hemoglobin 34.4 pg (27-31); Mean Corpuscular Hgb Conc 34.1 g/dl (32-36); Mean Platelet Volume 9.7 fl (6.0-9.5); Neutrophil # 7.7 K/mm3 (1.3-6.0); Neutrophil % 74.9 % (42-75.0); Platelet Count 200 K/mm3 (150-450); Red Blood Count 3.66 M/mm3 (4.2-5.4); Red Cell Distribution Width 12.8 % (11.5-14.0); White Blood Count 10.3 K/mm3 (4.0-10.5)
[2017-02-02 10:23] LABS: Prothrombin Time (Patient) 10.3 Seconds (9.0-11.0)
[2017-02-02 10:27] LABS: Urine Appearance Clear; Urine Color Pale Yellow
[2017-02-02 10:28] LABS: Urine Bacteria None Seen; Urine RBC None Seen /hpf (0-5); Urine WBC TRACE /hpf (0-5)
[2017-02-02 10:30] LABS: INR 1.03 INR (0.90-1.10); Partial Thrombolplastin Time 25.4 Seconds (24-32)
[2017-02-02 10:36] LABS: Albumin * 3.4 gm/dl (3.4-5.0); Anion Gap 9.5 mmol/L (6.8-13.8); BUN/Creatinine Ratio 17.8 (9.0-21.6); Bilirubin, Total 0.4 mg/dL (0.0-1.1); Ca. Corrected For Albumin 9.3 mg/dL (8.4-10.2); Calcium * 9.1 mg/dL (7.9-10.9); Carbon Dioxide 29.7 mmol/L (24-32.6); Potassium 4.2 mmol/L (3.4-4.6); Total Protein 6.9 gm/dL (6.2-8.2)
[2017-02-02] MEDS ORDERED: ceFAZolin SODIUM 1 GM VIAL IV PRN (10:47)
[2017-02-02 10:54] LABS: Valproic Acid 31.4 mcg/mL (50.0-100.0)
--- NOTE | 2017-02-02 10:55 | CONS ---
HPI - General Date of Service: 02/02/17 Narrative: Patient presented to emergency department from residential after being found on the floor. Nursing staff reported she was complaining of left hip pain and left shoulder pain. Unable to get any history from patient. - History of Present Illness Allergies/Adverse Reactions: Allergies buspirone Adverse Reaction (Mild, Verified 10/29/16 23:03) Fatigue phenobarbital Adverse Reaction (Mild, Verified 02/14/16 08:57) rash phenytoin sodium [From Dilantin] Adverse Reaction (Mild, Verified 02/14/16 08:57 ) rash phenytoin sodium extended [From Dilantin] Adverse Reaction (Mild, Verified 02/13 08:57) rash Home Medications: Home Medications Medication Instructions Recorded Last Taken Aspirin [Aspirin EC] 81 mg PO DAILY 12/28/14 03/15/15 Montelukast Sodium [Singulair] 10 mg PO HS 12/28/14 03/15/15 Valproic Acid (As Sodium Salt) 250 mg PO BID 12/28/14 03/15/15 [Valproic Acid] Memantine HCl [Namenda] 5 mg PO HS 11/15/15 Unknown Acetaminophen [Tylenol] 2 tab PO Q6H PRN 04/29/16 Unknown Levothyroxine Sodium [Synthroid] 88 mcg PO DAILY 04/29/16 Unknown Vit B Comp/C/FA/Iron/Vit E 1 each PO DAILY 04/29/16 Unknown [Vitamin B Complex Tablet] Citalopram Hydrobromide [Celexa] 40 mg PO QPM 12/03/16 Unknown clonazePAM [Klonopin] 1 mg PO HS 12/03/16 Unknown - Narrative Narrative: From chart. - Patient's Past Medical History Patient History - Medical: History Unknown, Alzheimer's Disease, Anxiety, Dementia, Depression, Hypothyroidism, Seizures Patient History - Cardiac/Respiratory: History Unknown Patient History - Cancer: History Unknown Patient History - Surgical Procedures: Noncontributory, Hysterectomy, Other Patient History - Other: None LMP (females 10-50): post - Family History Mother Family History - Medical: Father Family History - Medical: - Social History Living Situations: residential Abuse History: No History of abuse Psych History: Hx of Anxiety, Hx of Depression Smoking Status: Never smoker Alcohol Use: none Drug Use: none - Immunizations Immunizations Up to Date: Yes Hx Pneumococcal Vaccination: Yes History of Influenza Vaccine: Yes Procedures BREAST DX PROCEDURE NEC (12/15/10) ENDOSC POLYPECTOMY OF LG INTEST (10/10/10) IMMOBILIZATION OF LEFT LOWER EXTREMITY USING SPLINT (12/01/16) INSPECTION OF BLADDER, ENDO (01/06/15) PERCUTAN NEEDLE BIOPSY OF BREAST (12/15/10) REPOSITION LEFT HUMERAL HEAD, EXTERNAL APPROACH (04/29/16) REPOSITION LEFT SHOULDER JOINT, EXTERNAL APPROACH (04/29/16) X-RAY NEC AND NOS (12/15/10) Medications - Medications Current Medications: Current Medications Sodium Chloride (Sodium Chloride 0.9%) 1,000 mls @ 125 mls/hr IV .Q8H PRN PRN Reason: HYDRATION Stop: 03/04/17 09:57 Last Admin: 02/02/17 09:57 Dose: 125 mls/hr Physical Examination - Exam Narrative: Lying in bed. Does not respond to questions. Left hip externally rotated. Pain responds with painful grimace with me passively rotating her hip. No pain with me bending her knee. No swelling in LLE. 2+ dorsalis pedis pulse. Pelvis and hip films reviewed show displaced subcapital left hip fracture. Vital Signs: Vital Signs - Last Taken Temp 36.2 C L 02/02/17 09:46 Pulse 77 02/02/17 10:39 Resp 13 02/02/17 10:39 BP 90/42 02/02/17 10:39 Pulse Ox 98 02/02/17 10:39 O2 Oxygen Delivery Method Room Air - Assessments/Findings (1) Hip fracture, left Diagnosis(s): Pending medical evaluation for surgical risk endoprosthesis for pallative treatment of hip fracture. Will need to obtain consents from power of buffing turner and counter. Problem: Acute Qualifiers: Encounter type: initial encounter Fracture type: closed Qualified Code(s) : S72.002A - Fracture of unspecified part of neck of left femur, initial encounter for closed fracture (2) Fall at residential Problem: Acute (3) Anxiety Problem: Chronic (4) Depression Problem: Chronic (5) Epilepsy Problem: Chronic (6) Hyperlipidemia Problem: Chronic (7) Hypertension Problem: Chronic (8) Hypothyroidism Problem: Chronic Qualifiers:
--- NOTE | 2017-02-02 13:18 | HP ---
Chief Complaint - Chief Complaint Date of Service: 02/02/17 Time of Service: 13:17 Chief Complaint: LT hip pain since fall History of Present Illness: Patient is a 71-year WF with a history of HTN, hypothyroidism, seizure disorder , hypothyroidism who was found on the floor today by the intermediate staff and was found to be complaining of left hip pain. X-rays in the ER revealed fracture through the neck of left hip and she was admitted for further care and treatment. Patient is unable to give a history. Most of the history was obtained from ER records, Ash and the son who was present at bedside. Patient uses a wheelchair for ambulation. - Patient's Past Medical History Additional info: PAST MEDICAL HISTORY: HTN, hypothyroidism, seizure disorder since age 13, dementia since 2011, anxiety and depression, Osteoarthritis. Additional Info: PAST SURGICAL HISTORY: 1970s: [facility]. 09/2010: Colonoscopy benign adenomatous polyps, redundant colon will need barium enema for future colon screenings. 04/2016: closed reduction left shoulder dislocation. Patient History - Other: None - Family History Mother Family History - Medical: - 71 injury due to horse, HTN, CAD Father Family History - Medical: - 63, throat cancer, polio, arthritis Family History - Cardiac/Respiratory: History Unknown - Social History Psych History: Hx of Anxiety, Hx of Depression Alcohol Use: none Drug Use: none - Immunizations Immunizations Up to Date: Yes Hx Pneumococcal Vaccination: Yes History of Influenza Vaccine: Yes Immunizations: IMMUNIZATION HX Immunizations Up to Date Yes History of Influenza Vaccine Yes Hx Pneumococcal Vaccination Yes Allergies/Adverse Reactions: Allergies Allergy/AdvReac Type Severity Reaction Status Date / Time buspirone AdvReac Mild Fatigue Verified 02/02/17 12:09 phenobarbital AdvReac Mild rash Verified 02/02/17 12:09 phenytoin sodium AdvReac Mild rash Verified 02/02/17 12:09 [From Dilantin] phenytoin sodium extended AdvReac Mild rash Verified 02/02/17 12:09 [From Dilantin] Home Medications: HOME MEDICATIONS Montelukast Sodium [Singulair] 10 mg PO HS 12/28/14 [Last Taken 02/01/17 20:00] Valproic Acid (As Sodium Salt) [Valproic Acid] 250 mg PO BID 12/28/14 [Last Taken 02/01/17 20:00] Memantine HCl [Namenda] 5 mg PO HS 11/15/15 [Last Taken 02/01/17 20:00] Acetaminophen [Tylenol] 2 tab PO Q6H PRN 04/29/16 [Last Taken Unknown] Levothyroxine Sodium [Synthroid] 88 mcg PO DAILY 04/29/16 [Last Taken 02/01/17 07:00] Vit B Comp/C/FA/Iron/Vit E [Vitamin B Complex Tablet] 1 each PO DAILY 04/29/16 [ Last Taken 02/01/17 07:00] Lisinopril [Zestril] 5 mg PO DAILY #30 tablet 11/02/16 [Last Taken 02/01/17 07: 00] Metoprolol Succinate 25 mg PO HS #30 tab.er.24h 11/02/16 [Last Taken 02/01/17 20 :00] HYDROcodone/ACETAMINOPHEN [Lorcet 5-325 mg Tablet] 1 each PO QID PRN #20 tablet 12/01/16 [Last Taken 01/29/17 19:38] Citalopram Hydrobromide [Celexa] 40 mg PO DAILY@1700 12/03/16 [Last Taken 17:00] clonazePAM [Klonopin] 1 mg PO HS 12/03/16 [Last Taken 02/01/17 20:00] ALPRAZolam [Xanax] 0.25 mg PO BID 02/02/17 [Last Taken 02/01/17 16:00] Acetaminophen 650 mg PO 0700,1100,1600,2000 02/02/17 [Last Taken 02/01/17 20:00] Aspirin [Aspirin Chewable] 81 mg PO DAILY 02/02/17 [Last Taken 02/01/17 07:00] traMADol HCL [Tramadol HCl] 50 mg PO 0700,1200,1600,2000 02/02/17 [Last Taken 20:00] Exam - Exam Vital Signs: Vital Signs - Last Taken Temp 36.2 C L 02/02/17 12:18 Pulse 77 02/02/17 12:18 Resp 13 02/02/17 12:18 BP 90/42 02/02/17 12:18 Pulse Ox 98 02/02/17 12:18 Constitutional: Present: Elderly - Well-nourished, alert but not oriented to time place or person in some distress. ENT Exam: Present: dry mucous membranes - Poor dentition. Eye Exam: bilateral eye: PERRL, EOMI Neck: Present: normal inspection, trachea midline Breasts: Present: Exam deferred Respiratory: Present: lungs clear, normal breath sounds, no accessory muscle use Cardiovascular/Chest: Present: regular rate, rhythm. Absent: tachycardia Peripheral Pulses: carotid (R): 2+, carotid (L): 2+ Abdomen: Present: Normal bowel sounds, soft, nontender, nondistended /Rectal: Present: Exam deferred Extremity: Present: normal inspection, no pedal edema - Left hip externally rotated Appearance: Present: impaired recent memory, impaired remote memory Eye contact: Present: other - Unable to test Diagnostic Studies: Laboratory Tests 02/02/17 10:00 WBC 10.3 Hgb 12.6 Hct 37.0 MCV 101.1 H Plt Count 200 02/02/17 10:00 Plasma Sodium 140 Potassium 4.2 Chloride 105 Carbon Dioxide 29.7 BUN 13 D Creatinine 0.73 Est GFR (Non-Af Amer) 83 Random Glucose 100 Calcium Adj for Albumin 9.3 Total Bilirubin 0.4 AST 31 ALT 35 Alkaline Phosphatase 94 Total Protein 6.9 EKG normal sinus rhythm, rate 80/m, nonspecific ST and T wave changes Assessment/Plan - Narrative Narrative: 1. LT hip fracture. 2. HTN well controlled on lisinopril and metoprolol 25 mg twice a day 3. Seizure disorder On valproic acid 250 mg twice a day 4. Hypothyroidism On levothyroxine 50 g by mouth daily. 5. Preop clearance Patient does not have ischemic heart disease, high risk surgery, CHF, cerebrovascular disease, DM requiring insulin or chronic kidney disease, and will be undergoing intermediate risk procedure[orthopedic surgery on an emergent basis] with a reported risk of cardiac or nonfatal TN will be 1-5 %. - Assessment/Plan (1) Hip fracture, left Problem: Chronic Qualifiers: Encounter type: initial encounter Fracture type: closed Qualified Code(s) : S72.002A - Fracture of unspecified part of neck of left femur, initial encounter for closed fracture (2) Hypertension Problem: Chronic (3) Dementia Problem: Chronic Qualifiers: Dementia type: unspecified type (4) Seizure disorder Problem: Chronic
[2017-02-02] MEDS ORDERED: NORMAL SALINE 1,000 ML IV ONE (13:40)
[2017-02-02] MEDS ORDERED: RINGER'S SOLUTION,LACTATED 1,000 ML IV ONE ×2 (15:09)
--- NOTE | 2017-02-02 15:24 | POSTOP NO ---
Date of Surgery: 02/02/17 Patient Tolerated the Procedure: Well Post Operative Diagnosis/Procedures: Stamp Presser: Chavez Suero PA-C Post-operative Diagnosis: Displaced left femoral neck fracture Finding: Above Procedure: Cemented left hip hemiarthroplasty Estimated Blood Loss: 100 mL Specimens: Bone for disposal
[2017-02-02] MEDS ORDERED: ACETAMINOPHEN 500 MG TABLET PO PRN (15:26)
[2017-02-02] MEDS ORDERED: MAG HYDROX/ALUMINUM HYD/SIMETH 30 ML UDC PO PRN (15:26)
[2017-02-02] MEDS ORDERED: MAGNESIUM HYDROXIDE 30 ML UDC PO PRN (15:26)
--- NOTE | 2017-02-02 15:26 | OR ---
Operative Report - Dictated Report Narrative: Date: 02/02/2017 Preoperative diagnosis: Closed left hip displaced femoral neck fracture. Postoperative diagnosis: Closed left hip displaced femoral neck fracture Procedure: Left hip cemented juan-arthroplasty. Surgeon: Roney Busch M.D. Visual Display Manager: Chavez Suero PA-C Anesthesia: Spinal. Complications: None Specimens: Bone for disposal. Estimated blood loss: 100 milliliters. Retained implants: [employer] size 3 basic cemented femoral stem. Size 44 millimeter outside diameter self-centering bipolar head with +1.5 millimeter cobalt chromium 28 mm femoral head. Indications: Mrs. Clark is a 71-year-old female who [facility]. This patient was evaluated on the floor and found to have sustained a displaced femoral neck fracture. The risks and benefits were discussed with the patient as well as any power of tax attorney or family . The patient wished to proceed with surgical treatment. The risks, benefits, and alternatives discussed were , blood clots, bleeding, infection, nerve/tendon blood vessel/ injury, malposition of components, dislocation and/or instability of joint, intraoperative fracture, postoperative limited range of motion, persistent pain , failure of components, and need for additional procedures. Patient wished to proceed. Consent was obtained after answering all questions. Procedure: After marking the correct extremity on the floor, the patient was taken to the operating room. A timeout was performed. IV antibiotics consisting of Ancef were administered prior to the procedure. A spinal anesthetic was induced by anesthesia. A Lang catheter was inserted if not are in place. The patient was then transitioned to a lateral position on a well- padded pegboard. An axillary roll was placed. The head was in neutral position. The non-operative down leg was well-padded with SCD and TIN hose in place. The arms were supported and padded to protect from any undue pressure on the bony prominences and nerves. Well-padded anterior and posterior pelvic and chest posts were secured in order to maintain a stable position of the pelvis. This was placed so that the pelvis was perpendicular to the floor. The body was in line with the pelvis. Once it was felt that we had protected all the bony prominences and the patient was well secured with a safety belt as well, the leg was pre-scrubbed with alcohol, prepped and draped in a standard sterile fashion. A standard anterior lateral hip incision was marked out over the greater trochanter. Ioban drapes were then placed. The skin incision was then made. Sharp dissection with a scalpel utilizing cautery for hemostasis was carried out down to the gluteus and iliotibial band fascia. This was split in line with the skin incision. The greater trochanter bursa was excised. The anterior and posterior margins of the abductor tendon were identified. The anterior 1/2-1/3 of the tendon was tagged and reflected off the greater trochanter leaving a sleeve of tendon for repair at the completion of the case. This exposed the underlying hip joint capsule. An inverted T-type capsulotomy was made extending this up to the brim of the acetabulum. We encountered a hematoma at this point confirming an acute fracture as well as noted displacement of the femoral neck fracture. Using Homans to assist with elevation of the soft tissues off the anterior, superior, and inferior aspects of the femoral neck, the hip was then placed in a figure 4 position for a femoral neck cleanup cut to be made. With the leg in an externally rotated and adducted position, the cutting flag was utilized in order to richi for a standard femoral neck cut approximately a fingerbreadth above the level of the lesser trochanter. This was done while protecting the surrounding soft tissues with Homans. The femoral head was then removed and sized for guidance on the size of the bipolar head. It was noted that there was no significant loss of articular cartilage on both the femoral head and weightbearing portions of the acetabulum. We then returned the leg to the table and turned our attention to the acetabulum. While protecting the surrounding soft tissues, the labrum and remaining tissue in the fovea were excised using a scalpel and cautery. The acetabulum was then protected with a sponge while we returned our attention to the femur. With the leg in a figure 4 position utilizing Homans for soft tissue protection , a box cutting osteotome, followed by Bull awhenrique, followed by serial broaches were utilized in order to prepare the femur. It was found that a size 3 broach gave good axial and rotational stability. The proximal femur was visualized to ensure that there were no signs of fracture. A series of heads were trialed. It was found that a + 1.5 femoral head gave good overall stability. There is minimal longitudinal instability. Hip range of motion was able to reach full extension and external rotation to greater than 75 degrees prior to impingement along the posterior acetabulum. The hip was able to be flexed to greater than 90 degrees with internal rotation greater than 60 degrees prior to anterior impingement. The limb lengths were near equal based on comparison to the contralateral side . At this point was felt this was the appropriately sized femoral components as well as neck and femoral head. The trial implants were removed. A canal cement plug was placed distally and the canal was thoroughly irrigated using pulsatile vacuum brush device. The canal was then thoroughly dried with a suction device. The cement was vacuum mixed per the hydroelectric plant structural engineer's instructions and placed into a cement gun. Cement was then placed in the dry irrigated femur using modern cementing technique using a pressurizing device. The stem was then placed in the appropriate version compared to her capitan grande anatomy and held in place while the cement cured and the extruded cement was removed. Once the cement was fully cured, we ensured that the stem was stable and that there were no signs of fracture. The remaining extruded cement was removed, and the joint and the capsule were thoroughly evaluated to ensure there are no cement fragments. The final femoral bipolar head was then impacted in the place. The hip was then reduced and seated completely. The capsule was repaired with a single interrupted #1 Vicryl. The abductor tendon was repaired to the greater trochanter utilizing #5 Ethibond through drill holes. This was oversewn with #1 Vicryl. The fascia was closed with interrupted #1 Vicryl. The wounds were thoroughly irrigated as we closed in layers. The deep and subcutaneous fat layers were closed with 0 Vicryl. The subcutaneous tissue was closed with a running 3-0 Vicryl and the skin with manuelito. All sponge, needle, blade, and instrument counts were correct prior to closing the wounds. Sterile dressings consisting of Xeroform, 4 x 4's, ABD, and tape were applied. The patient was awoken and transferred to her hospital bed and then to the postanesthesia care unit in stable condition. Postoperative condition: The plan is to return to the medical/surgical inpatient floor postoperatively. Postoperatively 24 hours of IV antibiotics, pain control, physical therapy, occupational therapy, and medical comanagement will be utilized. Patient will be weightbearing as tolerated with anterior hip precautions. Postoperative films will be obtained in the recovery room.
[2017-02-02] MEDS ORDERED: FLU VACC QS2017-18(6MOS UP)/PF 60 MCG/0.5 ML SYRINGE IM ONE (18:00)
[2017-02-02] MEDS: ceFAZolin SODIUM 1 GM in DEXTROSE 5 % IN WATER 100 ML IV SCH ×4 (18:32→23:31)
[2017-02-02] MEDS: traMADol HCL 50 MG TABLET PO PRN (19:38)
[2017-02-02] MEDS ORDERED: HYDROmorphone HCL 1 MG/ML DISP.SYRIN IV SCH (20:49)
[2017-02-02] MEDS ORDERED: HYDROmorphone HCL 2 MG/ML VIAL ONE (21:11)
[2017-02-02] MEDS: SENNOSIDES/DOCUSATE SODIUM 1 TAB TABLET PO SCH (21:18)
[2017-02-02] MEDS: HYDROcodone/ACETAMINOPHEN 1 EACH TABLET PO PRN (23:30)
[2017-02-03 02:59] LABS: Hematocrit 29.8 % (37.0-47.0); Hemoglobin 9.9 gm/dL (12.5-16.0); Mean Cell Volume 102.1 fl (78-100); Mean Corpuscular Hemoglobin 33.9 pg (27-31); Mean Corpuscular Hgb Conc 33.2 g/dl (32-36); Mean Platelet Volume 9.9 fl (6.0-9.5); Platelet Count 173 K/mm3 (150-450); Red Blood Count 2.92 M/mm3 (4.2-5.4); Red Cell Distribution Width 12.9 % (11.5-14.0)
[2017-02-03] MEDS: NORMAL SALINE 1,000 ML IV PRN ×3 (03:11→21:21)
[2017-02-03] MEDS ORDERED: clonazePAM 1 MG TABLET ONE (03:14)
[2017-02-03] MEDS: clonazePAM 1 MG TABLET PO SCH ×2 (03:16→21:28)
[2017-02-03 03:18] LABS: Anion Gap 11.6 mmol/L (6.8-13.8); BUN/Creatinine Ratio 18.9 (9.0-21.6); Calcium * 8.3 mg/dL (7.9-10.9); Carbon Dioxide 26.6 mmol/L (24-32.6); Estimated Creat Clear 46.2; Potassium 4.2 mmol/L (3.4-4.6)
[2017-02-03] MEDS: HYDROcodone/ACETAMINOPHEN 1 EACH TABLET PO PRN ×2 (04:10→16:06)
[2017-02-03] MEDS: ceFAZolin SODIUM 1 GM in DEXTROSE 5 % IN WATER 100 ML IV SCH ×2 (05:10)
[2017-02-03] MEDS ORDERED: HYDROmorphone HCL 1 MG/ML DISP.SYRIN IV PRN (07:19)
--- NOTE | 2017-02-03 08:04 | PN ---
Subjective - Date and Time Seen Date: 02/03/17 Time: 07:53 Subjective Narrative: patient seen today no distress, she respond to tactile stimuli and guard her left hip. Objective - Review of Systems Generalized/Overall Review: Reports: No Symptoms Reported - unable to provide information due to medical state, pt demented - Vitals Vitals: Last Vital Signs Temp 36.0 C L 02/02/17 17:57 Pulse 114 H 02/03/17 05:57 Resp 18 02/03/17 05:57 BP 135/70 02/03/17 05:57 Pulse Ox 96 02/03/17 05:57 - Abnormal Lab Findings Abnormal Lab Findings: Abnormal Lab Results 02/03/17 02/03/17 Range/Units 02:59 02:59 RBC 2.92 L (4.2-5.4) M/mm3 Hgb 9.9 L (12.5-16.0) gm/dL Hct 29.8 L (37.0-47.0) % MCV 102.1 H (78-100) fl MCH 33.9 H (27-31) pg MPV 9.9 H (6.0-9.5) fl Random Glucose 135 H D (70-110) mg/dL - Exam Constitutional: Present: No distress, Elderly ENT Exam: Present: hearing grossly normal Neck: Present: full range of motion Breasts: Present: Exam deferred Respiratory: Present: chest non-tender, normal breath sounds, no respiratory distress Cardiovascular/Chest: Present: normal peripheral pulses, no chest tenderness, no edema, tachycardia, systolic murmur Abdomen: Present: Normal bowel sounds, soft, nontender, nondistended, no rebound tenderness /Rectal: Present: Exam deferred Extremity: Present: lower extremity edema, swelling, other - left hip limited range of motion Skin Exam: Present: normal color, warm/dry Neurologic: Present: disoriented x 3 Appearance: Present: impaired recent memory, impaired remote memory Eye contact: Present: avoids eye contact Thoughts: Present: auditory hallucinations Cauti Physician Documentation - Urinary Catheter Management Urethral (Lang) Date of Insertion: 02/02/17 Time of Insertion: 09:50 Assessment/Plan Plan Narrative: POD#1 Left hip cemented juan-arthroplasty. secondary to Closed left hip displaced femoral neck fracture Ortho following IV/ oral pain medications PT/OT evaluation and treatment SCIP protocol VTE ppx:Lovenox Acute blood loss anemia EBL 100ml On ad Hgb 12.6---->9.9 Oral iron Chronic conditions stable Hypertension Hypothyriodism Seizure Code status: DNR VTE ppx: Lovenox GI ppx: Time 20 minutes and previous records reviewed. - Problems/Diagnosis (1) Dementia Problem: Chronic Qualifiers: Dementia type: unspecified type (2) Hip fracture, left Problem: Acute Qualifiers: Encounter type: initial encounter Fracture type: closed Qualified Code(s) : S72.002A - Fracture of unspecified part of neck of left femur, initial encounter for closed fracture (3) Hypertension Problem: Chronic (4) Hypothyroidism Problem: Chronic Qualifiers: (5) Depression Problem: Chronic (6) Epilepsy Problem: Chronic
[2017-02-03] MEDS ORDERED: HYDROmorphone HCL 2 MG/ML VIAL ONE (08:36)
[2017-02-03] MEDS: LEVOTHYROXINE SODIUM 88 MCG TABLET PO SCH (08:52)
[2017-02-03] MEDS: FERROUS SULFATE 325 MG TABLET PO SCH ×3 (08:52→21:23)
[2017-02-03] MEDS: LISINOPRIL 5 MG TABLET PO SCH (08:52)
[2017-02-03] MEDS: ASPIRIN 81 MG TAB.CHEW PO SCH (08:53)
[2017-02-03] MEDS: VALPROIC ACID 250 MG/5 ML PO SCH ×2 (08:53→21:24)
[2017-02-03] MEDS: VITAMIN B COMP W-C 1 TAB TABLET PO SCH (08:53)
[2017-02-03] MEDS: ALPRAZolam 0.25 MG TABLET PO SCH ×2 (09:06→21:28)
--- NOTE | 2017-02-03 12:00 | PN ---
Subjective - Date and Time Seen Date: 02/03/17 Time: 11:56 Subjective Narrative: Patient confused. When questioning if she has any pain right now she reports no. Unable to get any other history from patient Objective Objective Narrative: Bandages are clean and dry. Patient is picking at her dressings and the nurses have had to reinforce already. Passive hip range of motion patient does report discomfort in the left hip area. Calf supple. She is able to plantarflex and dorsiflex her foot on command. - Vitals Vitals: Last Vital Signs Temp 36.8 C 02/03/17 09:00 Pulse 114 H 02/03/17 09:00 Resp 18 02/03/17 09:00 BP 135/70 02/03/17 09:00 Pulse Ox 96 02/03/17 09:00 - Abnormal Lab Findings Abnormal Lab Findings: Abnormal Lab Results 02/03/17 02/03/17 Range/Units 02:59 02:59 RBC 2.92 L (4.2-5.4) M/mm3 Hgb 9.9 L (12.5-16.0) gm/dL Hct 29.8 L (37.0-47.0) % MCV 102.1 H (78-100) fl MCH 33.9 H (27-31) pg MPV 9.9 H (6.0-9.5) fl Random Glucose 135 H D (70-110) mg/dL Cauti Physician Documentation - Urinary Catheter Management Urethral (Lang) Date of Insertion: 02/02/17 Time of Insertion: 09:50 Assessment/Plan - Problems/Diagnosis (1) Hip fracture, left Problem: Acute Qualifiers: Encounter type: initial encounter Fracture type: closed Qualified Code(s) : S72.002A - Fracture of unspecified part of neck of left femur, initial encounter for closed fracture Narrative: Instructed nurses on continued reinforce dressings. Anticoagulation. Therapy for mobilization. Pain control (2) Fall at skilled nursing Problem: Acute (3) Anxiety Problem: Chronic (4) Depression Problem: Chronic (5) Epilepsy Problem: Chronic (6) Hyperlipidemia Problem: Chronic (7) Hypertension Problem: Chronic (8) Hypothyroidism Problem: Chronic Qualifiers: (9) Acute blood loss anemia Problem: Acute Narrative: Per medical for management. As patient does have reactive tachycardia (10) Tachycardia Problem: Acute
[2017-02-03] MEDS: HYDROmorphone HCL 2 MG/ML VIAL IV PRN (12:57)
[2017-02-03] MEDS: CITALOPRAM HYDROBROMIDE 20 MG TABLET PO SCH (16:06)
[2017-02-03] MEDS: ENOXAPARIN SODIUM 40 MG/0.4 ML SYRG SC SCH (16:07)
[2017-02-03] MEDS ORDERED: MONTELUKAST SODIUM 10 MG TABLET PO SCH (21:00)
[2017-02-03] MEDS: MONTELUKAST SODIUM 10 MG TABLET PO SCH (21:23)
[2017-02-03] MEDS: MEMANTINE HCL 10 MG TABLET PO SCH (21:24)
[2017-02-03] MEDS: SENNOSIDES 8.6 MG TABLET PO SCH (21:25)
[2017-02-03] MEDS: SENNOSIDES/DOCUSATE SODIUM 1 TAB TABLET PO SCH (21:25)
[2017-02-04] MEDS: METOPROLOL SUCCINATE 25 MG TABLET.SA PO SCH ×2 (00:30→22:05)
[2017-02-04] MEDS: LEVOTHYROXINE SODIUM 88 MCG TABLET PO SCH ×2 (05:28→05:44)
[2017-02-04] MEDS: NORMAL SALINE 1,000 ML IV PRN (06:06)
[2017-02-04 06:32] LABS: Hematocrit 28.1 % (37.0-47.0); Hemoglobin 9.9 gm/dL (12.5-16.0); Mean Cell Volume 99.6 fl (78-100); Mean Corpuscular Hemoglobin 35.1 pg (27-31); Mean Corpuscular Hgb Conc 35.2 g/dl (32-36); Mean Platelet Volume 9.8 fl (6.0-9.5); Neutrophil # 10.3 K/mm3 (1.3-6.0); Neutrophil % 74.7 % (42-75.0); Platelet Count 159 K/mm3 (150-450); Red Blood Count 2.82 M/mm3 (4.2-5.4); Red Cell Distribution Width 12.8 % (11.5-14.0); White Blood Count 13.8 K/mm3 (4.0-10.5)
[2017-02-04 06:46] LABS: Albumin * 2.4 gm/dl (3.4-5.0); BUN/Creatinine Ratio 10.5 (9.0-21.6); Bilirubin, Total 0.4 mg/dL (0.0-1.1); Ca. Corrected For Albumin 9.6 mg/dL (8.4-10.2); Calcium * 8.6 mg/dL (7.9-10.9); Carbon Dioxide 27.8 mmol/L (24-32.6); Potassium 3.8 mmol/L (3.4-4.6); Total Protein 5.9 gm/dL (6.2-8.2)
--- NOTE | 2017-02-04 07:02 | PN ---
Subjective - Date and Time Seen Date: 02/04/17 Time: 06:57 Subjective Narrative: patient seen today in bed no acute distress, pt guard her left him. Objective - Review of Systems Generalized/Overall Review: Reports: No Symptoms Reported - pt demented and unable to provide information, she is able to answer to respond to her name only. - Vitals Vitals: Last Vital Signs Temp 37 C 02/04/17 04:59 Pulse 103 H 02/04/17 04:00 Resp 18 02/04/17 04:00 BP 142/62 02/04/17 04:00 Pulse Ox 91 02/04/17 04:00 - Abnormal Lab Findings Abnormal Lab Findings: Abnormal Lab Results 02/04/17 02/04/17 Range/Units 06:29 06:29 WBC 13.8 H D (4.0-10.5) K/mm3 RBC 2.82 L (4.2-5.4) M/mm3 Hgb 9.9 L (12.5-16.0) gm/dL Hct 28.1 L (37.0-47.0) % MCH 35.1 H (27-31) pg MPV 9.8 H (6.0-9.5) fl Immature Gran % (Auto) 0.60 H (0.001-0.429) % Immature Gran # (Auto) 0.08 H (0.000-0.0310) K/mm3 Lymphocytes % 14.9 L (20-51) % Monocytes % 9.4 H (0.0-9) % Neutrophils # 10.3 H (1.3-6.0) K/mm3 Monocytes # 1.3 H (0.0-1.0) k/mm3 AST 51 H (0-48) U/L Total Protein 5.9 L (6.2-8.2) gm/dL Albumin 2.4 L (3.4-5.0) gm/dl - Exam Constitutional: Present: No distress, Elderly ENT Exam: Present: hearing grossly normal, dry mucous membranes, other - pt chewed medication and residue left on her tongue Neck: Present: non-tender, full range of motion Breasts: Present: Exam deferred Respiratory: Present: chest non-tender, normal breath sounds, no respiratory distress, no accessory muscle use, decreased breath sounds, No wheezing Cardiovascular/Chest: Present: normal peripheral pulses, no chest tenderness, tachycardia, systolic murmur Abdomen: Present: Normal bowel sounds, soft, nontender, nondistended, no rebound tenderness Extremity: Present: no calf tenderness, lower extremity edema, other - Limited range of motion to left hip s/p fracture. she is able to dosiflex limbs Skin Exam: Present: warm/dry Neurologic: Present: disoriented x 3 Appearance: Present: impaired recent memory, impaired remote memory Eye contact: Present: good eye contact Cauti Physician Documentation - Urinary Catheter Management Urethral (Lang) Date of Insertion: 02/02/17 Time of Insertion: 09:50 Assessment/Plan Plan Narrative: POD#2 Left hip cemented juan-arthroplasty. secondary to Closed left hip displaced femoral neck fracture Ortho following IV/ oral pain medications PT/OT evaluation and treatment SCIP protocol completed VTE ppx:Lovenox Post-op temp 37.8 and WBC 13.8 likely reactive post-op Will continue to monitor Acute blood loss anemia- stable EBL 100ml On ad Hgb 12.6---->9.9--->9.9 Continue with Oral iron Chronic conditions stable Hypertension Hypothyriodism Seizure Dementia Code status: DNR VTE ppx: Lovenox GI ppx: Time 20 minutes and case discussed with Dr manzo - Problems/Diagnosis (1) Dementia Problem: Chronic Qualifiers: Dementia type: unspecified type (2) Hip fracture, left Problem: Acute Qualifiers: Encounter type: initial encounter Fracture type: closed Qualified Code(s) : S72.002A - Fracture of unspecified part of neck of left femur, initial encounter for closed fracture (3) Hypertension Problem: Chronic (4) Hypothyroidism Problem: Chronic Qualifiers: (5) Depression Problem: Chronic (6) Epilepsy Problem: Chronic
[2017-02-04] MEDS: ASPIRIN 81 MG TAB.CHEW PO SCH (10:28)
[2017-02-04] MEDS: SENNOSIDES 8.6 MG TABLET PO SCH ×2 (10:29→22:03)
[2017-02-04] MEDS: VITAMIN B COMP W-C 1 TAB TABLET PO SCH (10:29)
[2017-02-04] MEDS: LISINOPRIL 5 MG TABLET PO SCH (10:29)
[2017-02-04] MEDS: FERROUS SULFATE 325 MG TABLET PO SCH ×2 (10:30→17:22)
[2017-02-04] MEDS: VALPROIC ACID 250 MG/5 ML PO SCH ×2 (10:30→22:02)
[2017-02-04] MEDS: HYDROmorphone HCL 2 MG/ML VIAL IV PRN (10:58)
--- NOTE | 2017-02-04 11:20 | PN ---
Subjective - Date and Time Seen Date: 02/04/17 Time: 11:17 Subjective Narrative: Patient does not respond to questions. Objective Objective Narrative: Bandages C/D/I. No noted drainage. Calf and thigh supple. Hip passive ROM with response of discomfort by patient. - Vitals Vitals: Last Vital Signs Temp 37.1 C 02/04/17 10:24 Pulse 109 H 02/04/17 10:29 Resp 14 02/04/17 10:24 BP 149/68 02/04/17 10:29 Pulse Ox 95 02/04/17 10:24 - Abnormal Lab Findings Abnormal Lab Findings: Abnormal Lab Results 02/04/17 02/04/17 Range/Units 06:29 06:29 WBC 13.8 H D (4.0-10.5) K/mm3 RBC 2.82 L (4.2-5.4) M/mm3 Hgb 9.9 L (12.5-16.0) gm/dL Hct 28.1 L (37.0-47.0) % MCH 35.1 H (27-31) pg MPV 9.8 H (6.0-9.5) fl Immature Gran % (Auto) 0.60 H (0.001-0.429) % Immature Gran # (Auto) 0.08 H (0.000-0.0310) K/mm3 Lymphocytes % 14.9 L (20-51) % Monocytes % 9.4 H (0.0-9) % Neutrophils # 10.3 H (1.3-6.0) K/mm3 Monocytes # 1.3 H (0.0-1.0) k/mm3 AST 51 H (0-48) U/L Total Protein 5.9 L (6.2-8.2) gm/dL Albumin 2.4 L (3.4-5.0) gm/dl Cauti Physician Documentation - Urinary Catheter Management Urethral (Lang) Date of Insertion: 02/02/17 Time of Insertion: 09:50 Assessment/Plan - Problems/Diagnosis (1) Hip fracture, left Problem: Acute Qualifiers: Encounter type: initial encounter Fracture type: closed Qualified Code(s) : S72.002A - Fracture of unspecified part of neck of left femur, initial encounter for closed fracture Narrative: Anticoagulation, PT for mobolization, preventive care for bed sores (2) Fall at [facility] Problem: Acute (3) Anxiety Problem: Chronic (4) Depression Problem: Chronic (5) Epilepsy Problem: Chronic (6) Hyperlipidemia Problem: Chronic (7) Hypertension Problem: Chronic (8) Hypothyroidism Problem: Chronic Qualifiers: (9) Acute blood loss anemia Problem: Acute Narrative: stable (10) Tachycardia Problem: Acute (11) Leukocytosis Problem: Acute
[2017-02-04] MEDS: ALPRAZolam 0.25 MG TABLET PO SCH ×2 (12:34→22:09)
[2017-02-04] MEDS: HYDROcodone/ACETAMINOPHEN 1 EACH TABLET PO PRN ×2 (12:34→18:43)
[2017-02-04] MEDS: ENOXAPARIN SODIUM 40 MG/0.4 ML SYRG SC SCH (17:20)
[2017-02-04] MEDS: CITALOPRAM HYDROBROMIDE 20 MG TABLET PO SCH (17:21)
[2017-02-04] MEDS: clonazePAM 1 MG TABLET PO SCH (22:02)
[2017-02-04] MEDS: MONTELUKAST SODIUM 10 MG TABLET PO SCH (22:02)
[2017-02-04] MEDS: MEMANTINE HCL 10 MG TABLET PO SCH (22:03)
[2017-02-04] MEDS: SENNOSIDES/DOCUSATE SODIUM 1 TAB TABLET PO SCH (22:04)
--- NOTE | 2017-02-05 06:25 | PN ---
Subjective - Date and Time Seen Date: 02/05/17 Time: 06:23 Subjective Narrative: Pt denies pain, however with passive ROM of her LLE she screams in pain. She does state that she "feels very bad" although cannot elaborate on what specifically is wrong. Objective Objective Narrative: Pt is lying in bed moaning and confused. It appears as though she might had bitten her tongue as there is dried blood in her mouth. Pt LLE is externally rotated, pt screams and refuses to straight leg, even with passive ROM, although can move ankle and toes without problem. Dressing with some shadowing, scattered eccymosis present, but thigh is soft. - Review of Systems Generalized/Overall Review: Reports: No Symptoms Reported EENTM: Reports: No Symptoms Reported Respiratory: Reports: No Symptoms Reported Cardiac: Reports: No Symptoms Reported Abdominal: Reports: No Symptoms Reported Genitourinary Symptoms: Reports: Incontinent Musculoskeletal Complaints: Reports: Other - left hip pain Neurological: Reports: No Symptoms Reported Skin: Reports: No Symptoms Reported Endocrine: Reports: No Symptoms Reported - Vitals Vitals: Last Vital Signs Temp 36.6 C 02/05/17 04:40 Pulse 100 02/05/17 00:45 Resp 18 02/05/17 00:45 BP 148/60 02/05/17 00:45 Pulse Ox 94 02/05/17 00:45 - Abnormal Lab Findings Abnormal Lab Findings: Abnormal Lab Results 02/04/17 02/04/17 Range/Units 06:29 06:29 WBC 13.8 H D (4.0-10.5) K/mm3 RBC 2.82 L (4.2-5.4) M/mm3 Hgb 9.9 L (12.5-16.0) gm/dL Hct 28.1 L (37.0-47.0) % MCH 35.1 H (27-31) pg MPV 9.8 H (6.0-9.5) fl Immature Gran % (Auto) 0.60 H (0.001-0.429) % Immature Gran # (Auto) 0.08 H (0.000-0.0310) K/mm3 Lymphocytes % 14.9 L (20-51) % Monocytes % 9.4 H (0.0-9) % Neutrophils # 10.3 H (1.3-6.0) K/mm3 Monocytes # 1.3 H (0.0-1.0) k/mm3 AST 51 H (0-48) U/L Total Protein 5.9 L (6.2-8.2) gm/dL Albumin 2.4 L (3.4-5.0) gm/dl - Exam Constitutional: Present: Alert, Cooperative, Other - disoriented x2, Elderly, Overweight ENT Exam: Present: hearing grossly normal, dry mucous membranes Respiratory: Present: chest non-tender, normal breath sounds, no respiratory distress, no accessory muscle use, decreased breath sounds Cardiovascular/Chest: Present: normal peripheral pulses, regular rate, rhythm, no chest tenderness, no edema, no gallop, no JVD, no murmur Abdomen: Present: Normal bowel sounds, soft, nontender, nondistended, no rebound tenderness, no hepatospenomegaly, no masses Extremity: Present: no calf tenderness, other - LLE is externally rotated, s/p ORIF on 02/03. Scattered eccymosis noted, thigh is soft and compressible. Skin Exam: Present: normal color, warm/dry, no cyanosis Neurologic: Present: alert, disoriented x 3 Appearance: Present: impaired insight, impaired recent memory, impaired remote memory Eye contact: Present: cooperative Cauti Physician Documentation - Urinary Catheter Management Urethral (Lang) Urethral Indwelling: No Date of Insertion: 02/02/17 Time of Insertion: 09:50 Assessment/Plan Plan Narrative: POD#3 Left hip cemented juan-arthroplasty. secondary to Closed left hip displaced femoral neck fracture Ortho following-?external rotation of hip. Suggested propping foot up with pillows, however pt moves and it is not effective. Oral pain medications-IV out PT/OT evaluation and treatment SCIP protocol completed VTE ppx:Lovenox Post-op temp 38.2 and WBC 13.8 likely reactive post-op Will continue to monitor Acute blood loss anemia- stable EBL 100ml On ad Hgb 12.6---->9.9--->9.9 Continue with Oral iron Chronic conditions stable Hypertension Hypothyriodism Seizure Dementia Code status: DNR VTE ppx: Lovenox GI ppx:NA
[2017-02-05] MEDS: LEVOTHYROXINE SODIUM 88 MCG TABLET PO SCH (08:24)
[2017-02-05] MEDS: VALPROIC ACID 250 MG/5 ML PO SCH ×2 (08:24→20:43)
[2017-02-05] MEDS: LISINOPRIL 5 MG TABLET PO SCH (08:24)
[2017-02-05] MEDS: FERROUS SULFATE 325 MG TABLET PO SCH ×2 (08:25→17:47)
[2017-02-05] MEDS: VITAMIN B COMP W-C 1 TAB TABLET PO SCH (08:25)
[2017-02-05] MEDS: SENNOSIDES 8.6 MG TABLET PO SCH ×2 (08:25→20:42)
[2017-02-05] MEDS: ASPIRIN 81 MG TAB.CHEW PO SCH (08:25)
[2017-02-05] MEDS: ALPRAZolam 0.25 MG TABLET PO SCH ×2 (08:27→20:49)
--- NOTE | 2017-02-05 12:40 | PN ---
Subjective - Date and Time Seen Date: 02/05/17 Time: 12:38 Subjective Narrative: She is sitting in a chair alert but not oriented. She is unable to follow commands at this time. Objective Objective Narrative: Left lower extremity: Dressings dry, thigh swollen but soft, palpable dorsalis pedis pulse, minimal pain with hip range of motion. - Vitals Vitals: Last Vital Signs Temp 36.8 C 02/05/17 12:27 Pulse 86 02/05/17 12:27 Resp 20 02/05/17 12:27 BP 145/70 02/05/17 12:27 Pulse Ox 96 02/05/17 12:27 - Exam Constitutional: Present: Alert Cauti Physician Documentation - Urinary Catheter Management Urethral (Lang) Urethral Indwelling: No Date of Insertion: 02/02/17 Time of Insertion: 09:50 Assessment/Plan - Problems/Diagnosis (1) Hip fracture, left Problem: Acute Qualifiers: Encounter type: subsequent encounter Fracture type: closed Fracture healing: with routine healing Qualified Code(s): S72.002D - Fracture of unspecified part of neck of left femur, subsequent encounter for closed fracture with routine healing Narrative: Continue with physical therapy. Weightbearing as tolerated with anterior hip precautions. She'll need a total of 10 days postoperative DVT prophylaxis with Lovenox followed by daily aspirin 325 mg daily. Keep her wounds covered with gauze and tape keep dry. From orthopedic standpoint she can be transferred to a nursing facility once she is medically stable. I will see her back in approximately 2 weeks. No active abduction
[2017-02-05] MEDS: ENOXAPARIN SODIUM 40 MG/0.4 ML SYRG SC SCH (15:46)
[2017-02-05] MEDS: CITALOPRAM HYDROBROMIDE 20 MG TABLET PO SCH (17:47)
[2017-02-05] MEDS: MONTELUKAST SODIUM 10 MG TABLET PO SCH (18:47)
[2017-02-05] MEDS: clonazePAM 1 MG TABLET PO SCH (20:41)
[2017-02-05] MEDS: MEMANTINE HCL 10 MG TABLET PO SCH (20:41)
[2017-02-05] MEDS: traMADol HCL 50 MG TABLET PO PRN (20:41)
[2017-02-05] MEDS: SENNOSIDES/DOCUSATE SODIUM 1 TAB TABLET PO SCH (20:42)
[2017-02-05] MEDS: METOPROLOL SUCCINATE 25 MG TABLET.SA PO SCH (20:44)
[2017-02-06] MEDS: LEVOTHYROXINE SODIUM 88 MCG TABLET PO SCH (05:53)
--- NOTE | 2017-02-06 06:50 | DS ---
<Jillian Griggs - Last Filed: 02/06/17 06:51> (1) Acute blood loss anemia Problem: Resolved (2) Hip fracture, left Problem: Resolved QualifierTitle: Encounter type: initial encounter Fracture type: closed Qualified Code(s): S72.002A - Fracture of unspecified part of neck of left femur, initial encounter for closed fracture (3) Leukocytosis Problem: Resolved (4) Dementia Problem: Chronic QualifierTitle: Dementia type: unspecified type (5) Hypertension Problem: Chronic (6) Seizure disorder Problem: Chronic (7) Hyperlipidemia Problem: Chronic (8) Hypertension Problem: Chronic (9) Hypothyroidism Problem: Chronic Description of Stay: Patient is a 71-year WF with a history of HTN, hypothyroidism, seizure disorder , hypothyroidism who was found on the floor 02/02 by the correction staff and was found to be complaining of left hip pain. X-rays in the ER revealed fracture through the neck of left hip and she was admitted to medicine for an ORIF on 02/[address] Busch without complication. She has done fairly well giving her dementia per Narayan's notes will need: Continue with physical therapy. Weightbearing as tolerated with anterior hip precautions. She'll need a total of 10 days postoperative DVT prophylaxis with Lovenox followed by daily aspirin 325 mg daily. Keep her wounds covered with gauze and tape keep dry. Follow up in approximately 2 weeks. No active abduction Procedures Performed: see notes below List Procedures: Left hip ORIF 02/03 Discharge Disposition: [facility] Disposition: [facility] Condition: Undetermined Discharge Activity: Non-Weight bearing Discharge Diet: Low salt, Low fat/chol Discharge Level of Care:: SNF - Custodial Custodial Therapy: Physicial Therapy, Occupation Therapy Referrals: Philippe Pérez MD [Primary Care Provider] - One Week Roney Busch MD [Staff Physician] - Two Weeks Additional Patient Instructions (free text): Weightbearing as tolerated with anterior hip precautions. No active abduction. 10 days postoperative DVT prophylaxis with Lovenox followed by daily aspirin 325 mg daily. Keep her wounds covered with gauze and tape keep dry. Follow up in approximately 2 weeks. No active abduction. Continue Lovenox 40 mg SQ till 02/12/2017. Start ASA 325 mg PO daily from 02/13/2017. start baby ASA 81 mg PO daily from 03/15/2017. Yogurt 6 OZ PO Twice a day Vitamin D3 2000 units daily with food. take levothyroxine on an empty stomach with a full glass of water. follow up with Dr. Busch in 2 weeks and PCP in 2 weeks. Follow-up on 02/22/17 at 08:30. Health shakes bid . 2 eggs 3 times a week. Prescriptions (Any new or edited meds): ALPRAZolam [Xanax] 0.25 mg PO BID #60 tablet Aspirin [Aspirin EC] 325 mg PO DAILY #30 tablet. Aspirin 81 mg PO DAILY #30 tab.chew Cholecalciferol (Vitamin D3) [Vitamin D3] 2,000 unit PO DAILY@1200 #100 Enoxaparin Sodium [Lovenox] 40 mg SQ DAILY #6 ml Montelukast Sodium [Singulair] 10 mg PO 1900 #0.1 tablet Sennosides/Docusate Sodium [Senokot-S] 2 tab PO HS #60 tablet traMADol HCL [Tramadol HCl] 50 mg PO 0700,1200,1600,1999 #120 tablet Complete Home Medications List: Complete Home Medication List: Valproic Acid (As Sodium Salt) [Valproic Acid] 250 mg PO BID 12/28/14 Memantine HCl [Namenda] 5 mg PO HS 11/15/15 Levothyroxine Sodium [Synthroid] 88 mcg PO DAILY 04/29/16 Vit B Comp/C/FA/Iron/Vit E [Vitamin B Complex Tablet] 1 each PO DAILY 04/29/16 Lisinopril [Zestril] 5 mg PO DAILY #30 tablet 11/02/16 Metoprolol Succinate 25 mg PO HS #30 tab.er.24h 11/02/16 Citalopram Hydrobromide [Celexa] 40 mg PO DAILY@1700 12/03/16 clonazePAM [Klonopin] 1 mg PO HS 12/03/16 Acetaminophen 650 mg PO 0700,1100,1600,2000 02/02/17 ALPRAZolam [Xanax] 0.25 mg PO BID #60 tablet 02/06/17 Aspirin 81 mg PO DAILY #30 tab.chew 02/06/17 Aspirin [Aspirin EC] 325 mg PO DAILY #30 tablet. 02/06/17 Cholecalciferol (Vitamin D3) [Vitamin D3] 2,000 unit PO DAILY@1200 #100 Enoxaparin Sodium [Lovenox] 40 mg SQ DAILY #6 ml 02/06/17 Montelukast Sodium [Singulair] 10 mg PO 1900 #0.1 tablet 02/06/17 Sennosides/Docusate Sodium [Senokot-S] 2 tab PO HS #60 tablet 02/06/17 traMADol HCL [Tramadol HCl] 50 mg PO 0700,1200,1600,2000 #120 tablet 02/06/17 <Fredy Owen - Last Filed: 02/17/17 13:03> <Ramesh Grace - Last Filed: 02/22/17 14:18> (1) Hip fracture, left Problem: Acute Qualifiers: Encounter type: initial encounter Fracture type: closed Qualified Code(s) : S72.002A - Fracture of unspecified part of neck of left femur, initial encounter for closed fracture (2) Hypertension Problem: Chronic (3) Dementia Problem: Chronic Qualifiers: Dementia type: unspecified type (4) Seizure disorder Problem: Chronic (5) Acute blood loss anemia Problem: Acute Discharge Disposition: [facility] Discharge Activity: Weight bearing Discharge Diet: Low fat/chol, High Fiber Custodial Therapy: Physicial Therapy, Occupation Therapy
[2017-02-06] MEDS: ASPIRIN 81 MG TAB.CHEW PO SCH (09:50)
[2017-02-06] MEDS: VITAMIN B COMP W-C 1 TAB TABLET PO SCH (09:50)
[2017-02-06] MEDS: LISINOPRIL 5 MG TABLET PO SCH (09:50)
[2017-02-06] MEDS: ALPRAZolam 0.25 MG TABLET PO SCH (09:50)
[2017-02-06] MEDS: SENNOSIDES 8.6 MG TABLET PO SCH (09:50)
[2017-02-06] MEDS: FERROUS SULFATE 325 MG TABLET PO SCH (09:50)
[2017-02-06] MEDS: VALPROIC ACID 250 MG/5 ML PO SCH (09:51)
[2017-02-06 12:33] VITALS: BP 147/52
[2017-02-06] MEDS: ENOXAPARIN SODIUM 40 MG/0.4 ML SYRG SC SCH (14:19)
== END 2017-02-06 14:45 | DRG 470 ==
LOC: ER 08:43 → MS 10:29
PROVIDERS: ADMIT Internal Medicine; ATTEND Internal Medicine
PROC: 0T9B70Z Drainage of Bladder with Drainage Device, Via Natural or Artificial Opening (ICD-10-PCS; principal; 2017-02-02)
PROC: 0SRS0J9 Replacement of Left Hip Joint, Femoral Surface with Synthetic Substitute, Cemented, Open Approach (ICD-10-PCS; 2017-02-02)
DX: S72.012A Unspecified intracapsular fracture of left femur, initial encounter for closed fracture (principal); D62 Acute posthemorrhagic anemia; R00.0 Tachycardia, unspecified; D72.829 Elevated white blood cell count, unspecified; W18.30XA Fall on same level, unspecified, initial encounter; Y92.129 Unspecified place in nursing home as the place of occurrence of the external cause; G40.909 Epilepsy, unspecified, not intractable, without status epilepticus; I10 Essential (primary) hypertension; E78.5 Hyperlipidemia, unspecified; E03.9 Hypothyroidism, unspecified
CPT/HCPCS: 27236; 36415; 51702; 71010; 73030; 73502; 80048; 80053; 80164; 81001; 82607; 85025; 85027; 85610; 85730; 86850; 86900; 87081; 87086; 93005; 96374; 96375; 97163; 97166; 97530; 99285; J2405; 71045

== ENCOUNTER 2017-03-14 18:28 | Inpatient (IN) | payer MEDICARE, BC, OTHER ==
--- NOTE | 2017-03-14 19:07 | ERNOTE ---
<Deena Aguilera - Last Filed: 03/14/17 19:59> Neuro HPI ER Record Presenting Symptoms: other Time Seen by Provider: 03/14/17 18:28 Source: family Exam Limitations: dementia Immunizations: IMMUNIZATION HX Immunizations Up to Date Yes History of Influenza Vaccine Yes Hx Pneumococcal Vaccination Yes Allergies/Adverse Reactions: Allergies Allergy/AdvReac Type Severity Reaction Status Date / Time buspirone AdvReac Mild Fatigue Verified 03/14/17 18:46 phenobarbital AdvReac Mild rash Verified 03/14/17 18:46 phenytoin sodium AdvReac Mild rash Verified 03/14/17 18:46 [From Dilantin] phenytoin sodium extended AdvReac Mild rash Verified 03/14/17 18:46 [From Dilantin] Home Medications: HOME MEDICATIONS Valproic Acid (As Sodium Salt) [Valproic Acid] 250 mg PO BID 12/28/14 [Last Taken 03/14/17 07:00] Memantine HCl [Namenda] 5 mg PO HS 11/15/15 [Last Taken 03/13/17 20:00] Levothyroxine Sodium [Synthroid] 125 mcg PO DAILY 04/29/16 [Last Taken 03/14/17 07:00] Vit B Comp/C/FA/Iron/Vit E [Vitamin B Complex Tablet] 1 each PO DAILY 04/29/16 [ Last Taken 03/14/17 10:00] Lisinopril [Zestril] 5 mg PO DAILY #30 tablet 11/02/16 [Last Taken 03/14/17 07: 00] Metoprolol Succinate 25 mg PO HS #30 tab.er.24h 11/02/16 [Last Taken 03/13/17 20 :00] Citalopram Hydrobromide [Celexa] 40 mg PO DAILY@1700 12/03/16 [Last Taken 17:00] clonazePAM [Klonopin] 0.5 mg PO HS 12/03/16 [Last Taken 03/13/17 21:00] Acetaminophen 650 mg PO 0700,1100,1600,2000 02/02/17 [Last Taken 03/14/17 11:00] ALPRAZolam [Xanax] 0.25 mg PO BID #60 tablet 02/06/17 [Last Taken 03/14/17 07:00 ] Aspirin [Aspirin EC] 325 mg PO DAILY #30 tablet. 02/06/17 [Last Taken 08:00] Cholecalciferol (Vitamin D3) [Vitamin D3] 2,000 unit PO DAILY@1200 #100 [Last Taken 03/14/17 12:00] Sennosides/Docusate Sodium [Senna-Docusate Sodium Tablet] 1 tab PO HS 03/14/17 [ Last Taken 03/13/17 20:00] - History of Present Illness Narrative: Patient has a history of seizure disorder, was started on tramadol after hip surgery six weeks ago. Today she has had a brief seizure in the [facility], was postictal, seen in the ER here and had labs and head CT done, was taken off the tramadol and send back to the retirement. On the way there she had another brief seizure and family brought her back to the ER. Patient is unable to give history due to dementia Review of Systems - Narrative Narrative: unable to obtain - Patient's Past Medical History Patient History - Medical: History Unknown, Alzheimer's Disease, Anxiety, Dementia, Depression, Hypothyroidism, Seizures Patient History - Cardiac/Respiratory: History Unknown, Hypertension Patient History - Cancer: No Hx of Cancer Patient History - Surgical Procedures: Hysterectomy Patient History - Other: None - Family History Mother Family History - Medical: Family History - Cardiac/Respiratory: History Unknown, Hypertension Family History - Cancer: History Unknown Father Family History - Medical: Family History - Cardiac/Respiratory: History Unknown Family History - Cancer: Throat - Social History Living Situations: retirement Abuse History: No History of abuse Psych History: Hx of Anxiety, Hx of Depression Alcohol Use: none Drug Use: none - Immunizations Immunizations Up to Date: Yes Hx Pneumococcal Vaccination: Yes History of Influenza Vaccine: Yes Physical Exam - Physical Exam General Appearance: Present: wd/wn, alert, no apparent distress Head Exam: Present: normal inspection Eye Exam: Normal inspection: bilateral, PERRL: bilateral Ears, Nose, Throat: Present: other - small amount of blood on teeth, patient refuses to open mouth for complete exam Respiratory: Present: no respiratory distress, normal breath sounds, no accessory muscle use, lungs clear Cardiovascular/Chest: Present: regular rate, rhythm, no murmur Gastrointestinal/Abdominal: Present: nontender Neurological Exam: Present: alert, other - move all extremties, uncooperative with more complete exam Skin Exam: Present: normal color, warm/dry ED Progress - Vital Signs Patient's Vital Signs:: I have reviewed the patient's vital signs. Vital Signs: Vital Signs 03/14/17 18:32 Temperature 37.0 C Pulse Rate 111 H Respiratory 20 Rate Blood Pressure 146/88 O2 Sat by Pulse 95 Oximetry - Progress/Reassessment Chief Complaint: Seizure Activity Progress Note-Subjective: 03/14/17 19:[address] Huffman (neurology), give 750mg po dose now, observe for one hour increase depakote to 250mg po in am and 500mg po in pm, rececheck level after the weekend (five days) - Transfer of Care Physician Sign Out: Deena Aguilera Receiving Physician: Bernardino Calix Pending Results: Labs Departure Clinical Impression: Seizure Qualifiers: Convulsion type: unspecified Qualified Code(s): R56.9 - Unspecified convulsions - Departure Disposition: [facility] Condition: Stable <Bernardino Calix - Last Filed: 03/15/17 02:30> Neuro HPI ER Record Immunizations: IMMUNIZATION HX Immunizations Up to Date Yes History of Influenza Vaccine Yes Hx Pneumococcal Vaccination Yes ED Progress - Results and Orders Patient's Lab Results:: I have reviewed the patient's lab results. Results and Orders: Laboratory Tests 03/14/17 19:57 Urine Color Pale yellow Urine Appearance Clear Urine pH 7.5 Ur Specific [place] 1.015 Urine Protein Negative Urine Glucose (UA) Negative Urine Ketones Negative Urine Blood 5 H Urine Nitrate Negative Urine Bilirubin Negative Urine Urobilinogen Normal Ur Leukocyte Esterase Negative Urine RBC Trace Urine WBC None seen Ur Epithelial Cells None seen Urine Bacteria None seen Hyaline Casts Trace Urine Culture Comments Culture to follow - Vital Signs Vital Signs: Vital Signs 03/14/17 03/14/17 03/14/17 18:32 19:30 19:56 Temperature 37.0 C Pulse Rate 111 H 111 H 116 H Respiratory 20 17 Rate Blood Pressure 146/88 O2 Sat by Pulse 95 91 Oximetry 03/14/17 20:23 Temperature Pulse Rate 90 Respiratory 13 Rate Blood Pressure 114/70 O2 Sat by Pulse 98 Oximetry - Progress/Reassessment Progress Note-Subjective: 03/14/17 21:[address] Aguilera at 20:00. Pt has been stable since then and has taken extra dose of depakote. Pt stable to go back to the care center 03/14/17 21:38 Pt was being prepared to go back to the care center and pt had another seizure. 03/14/17 22:17 Spoke with Anabel SALGADO hospitalist. She agrees with obs admit.
[2017-03-14] MEDS ORDERED: DIVALPROEX SODIUM 250 MG TABLET.DR PO ONE (19:45)
[2017-03-14 20:05] LABS: Urine Bilirubin Negative (NEGATIVE); Urine Ketone Negative (NEGATIVE); Urine Nitrite Negative (NEGATIVE); Urine Protein Negative (NEGATIVE); Urine Specific Gravity 1.015 SP.GR. (1.005-1.010); Urine Urobilinogen Normal (NORMAL); Urine pH 7.5 pH (5.0-7.0)
[2017-03-14 20:14] LABS: Urine Appearance Clear; Urine Bacteria None Seen; Urine Blood 5 /ul (NEGATIVE); Urine Color Pale Yellow; Urine Hyaline Cast TRACE /LPF; Urine RBC TRACE /hpf (0-5); Urine WBC None Seen /hpf (0-5)
--- NOTE | 2017-03-14 23:34 | HP ---
Chief Complaint - Chief Complaint Date of Service: 03/14/17 Time of Service: 23:00 Chief Complaint: Recurrent Seizure activity History of Present Illness: 72 years old female adm to the hospital from the ER with reports of re-current seizure activity. PMH significant for dementia, epilepsy, hypothyroidism and hypertension.Unable to obtain info from pt due to dementia. info obtained from previous records and ER notes. Earlier today pt was brought to the ER due to seizure activity while at the skilled nursing. pt has been on Tramadol x6 weeks s/ p left hip replacement secondary to left hip fracture. While in ER CT head No acute intra-cranial abnormality. Valproic acid level 31.3 on previous lab 11/21 it was 16.8. Upon her return to skilled nursing, she had another seizure and was brought back to the ER. ERP spoke with ekg monitor tech Neurologist Dr Huffman and Depakote 750mg was given and observed for an hour, In an attempt to get the pt up she had another seizure while in ER. Plan to adm give Depakote 250mg in the morning and Depakote 500mg in evening. repeat Depakote level in 5 days. - Patient's Past Medical History Patient History - Medical: Anxiety, Dementia, Depression, Hypothyroidism, Seizures Patient History - Cardiac/Respiratory: History Unknown, Hypertension Patient History - Cancer: No Hx of Cancer Patient History - Surgical Procedures: Hysterectomy Patient History - Other: None - Family History Mother Family History - Medical: Family History - Cardiac/Respiratory: History Unknown, Hypertension Family History - Cancer: History Unknown Father Family History - Medical: Family History - Cardiac/Respiratory: History Unknown Family History - Cancer: Throat - Social History Living Situations: skilled nursing - [place] Abuse History: No History of abuse Psych History: Hx of Anxiety, Hx of Depression Have you smoked in the past 12 months: No Alcohol Use: none Drug Use: none - Immunizations Immunizations Up to Date: Yes Hx Pneumococcal Vaccination: Yes History of Influenza Vaccine: Yes Review Of Systems (GEN) - Review of Systems Generalized/Overall Review: Present: No Symptoms Reported - No information obtained due to pt medical state, hx dementia Allergies/Adverse Reactions: Allergies Allergy/AdvReac Type Severity Reaction Status Date / Time buspirone AdvReac Mild Fatigue Verified 03/14/17 18:46 phenobarbital AdvReac Mild rash Verified 03/14/17 18:46 phenytoin sodium AdvReac Mild rash Verified 03/14/17 18:46 [From Dilantin] phenytoin sodium extended AdvReac Mild rash Verified 03/14/17 18:46 [From Dilantin] Home Medications: HOME MEDICATIONS Valproic Acid (As Sodium Salt) [Valproic Acid] 250 mg PO BID 12/28/14 [Last Taken 03/14/17 07:00] Memantine HCl [Namenda] 5 mg PO HS 11/15/15 [Last Taken 03/13/17 20:00] Levothyroxine Sodium [Synthroid] 125 mcg PO DAILY 04/29/16 [Last Taken 03/14/17 07:00] Vit B Comp/C/FA/Iron/Vit E [Vitamin B Complex Tablet] 1 each PO DAILY 04/29/16 [ Last Taken 03/14/17 10:00] Lisinopril [Zestril] 5 mg PO DAILY #30 tablet 11/02/16 [Last Taken 03/14/17 07: 00] Metoprolol Succinate 25 mg PO HS #30 tab.er.24h 11/02/16 [Last Taken 03/13/17 20 :00] Citalopram Hydrobromide [Celexa] 40 mg PO DAILY@1700 12/03/16 [Last Taken 17:00] clonazePAM [Klonopin] 0.5 mg PO HS 12/03/16 [Last Taken 03/13/17 21:00] Acetaminophen 650 mg PO 0700,1100,1600,2000 02/02/17 [Last Taken 03/14/17 11:00] ALPRAZolam [Xanax] 0.25 mg PO BID #60 tablet 02/06/17 [Last Taken 03/14/17 07:00 ] Aspirin [Aspirin EC] 325 mg PO DAILY #30 tablet.dr 02/06/17 [Last Taken 08:00] Cholecalciferol (Vitamin D3) [Vitamin D3] 2,000 unit PO DAILY@1200 #100 [Last Taken 03/14/17 12:00] Sennosides/Docusate Sodium [Senna-Docusate Sodium Tablet] 1 tab PO HS 03/14/17 [ Last Taken 03/13/17 20:00] Exam - Exam Vital Signs: Vital Signs - Last Taken Temp 37.0 C 03/14/17 18:32 Pulse 123 H 03/14/17 22:00 Resp 14 03/14/17 22:00 BP 123/105 03/14/17 22:00 Pulse Ox 96 03/14/17 22:00 Constitutional: Present: No distress, Obtunded, Elderly ENT Exam: Present: hearing grossly normal Eye Exam: bilateral eye: normal inspection Neck: Present: full range of motion Back Exam: Present: normal inspection Breasts: Present: Exam deferred Respiratory: Present: chest non-tender, lungs clear, normal breath sounds, no respiratory distress Cardiovascular/Chest: Present: normal peripheral pulses, no chest tenderness, no edema, no gallop, tachycardia Peripheral Pulses: dorsalis-pedis (R): 2+, dorsalis-pedis (L): 2+ Abdomen: Present: Normal bowel sounds, soft, nontender, nondistended, no rebound tenderness /Rectal: Present: Exam deferred Extremity: Present: non-tender, normal inspection, no pedal edema, no calf tenderness Skin Exam: Present: normal color, warm/dry Neurologic: Present: motor weakness, sensory deficit, depressed affect, disoriented x 3 Appearance: Present: disheveled Eye contact: Present: avoids eye contact, refused to answer Thoughts: Present: no apparent hallucination, incoherent Diagnostic Studies: Laboratory Results Urine Color Pale yellow 03/14/17 19:57 Urine Appearance Clear 03/14/17 19:57 Urine pH 7.5 pH (5.0-7.0) 03/14/17 19:57 Ur Specific [place] 1.015 SP.GR. (1.005-1.010) 03/14/17 19:57 Urine Protein Negative mg/dL (NEGATIVE) 03/14/17 19:57 Urine Glucose (UA) Negative mg/dL (NEGATIVE) 03/14/17 19:57 Urine Ketones Negative mg/dL (NEGATIVE) 03/14/17 19:57 Urine Blood 5 /ul (NEGATIVE) H 03/14/17 19:57 Urine Nitrate Negative (NEGATIVE) 03/14/17 19:57 Urine Bilirubin Negative mg/dl (NEGATIVE) 03/14/17 19:57 Urine Urobilinogen Normal EU/dl (NORMAL) 03/14/17 19:57 Ur Leukocyte Esterase Negative /ul (NEGATIVE) 03/14/17 19:57 Urine RBC Trace /hpf (0-5) 03/14/17 19:57 Urine WBC None seen /hpf (0-5) 03/14/17 19:57 Ur Epithelial Cells None seen /hpf (0-5) 03/14/17 19:57 Urine Bacteria None seen (NONE) 03/14/17 19:57 Hyaline Casts Trace /LPF (NONE) 03/14/17 19:57 Urine Culture Comments Culture to follow 03/14/17 19:57 CT head No acute intra-cranial abnormality Assessment/Plan - Narrative Narrative: Epilepsy-pt with long standing history of seizures Valporic acid level low on adm 31.3, on previous lab 11/2016 it was also low 16.8. She has been taking Depakote but was having recurrent seizures possible due to Tramadol x 6 weeks s/p hip surgery contraindicated and lower seizure threshold Tramadol was D/C upon first visit to the ER Head CT- No acute intra-cranial abnormality Depakote 750mg x1 was given in ER Per Dr Huffman Give Depakote 250mg in the morning and Depakote 500mg in the evening, repeat valproic acid in 5 days Seizure precaution Dementia- supportive care Resume home dose of medications Hypothyroidism- stable Resume home medications Anemia-stable On adm H/H 9.3/28.0 Initiated Oral Iron Code status: DNR GI ppx:pepcid VTE ppx:SCD Time 50 minutes and case discussed with Dr Paez - Assessment/Plan (1) Epilepsy Problem: Chronic (2) Tachycardia Problem: Chronic (3) Dementia Problem: Chronic Qualifiers: Dementia type: unspecified type (4) Hypertension Problem: Chronic (5) Hypothyroidism Problem: Chronic Qualifiers:
[2017-03-15] MEDS: ACETAMINOPHEN 325 MG TABLET PO SCH ×4 (07:46→21:44)
[2017-03-15] MEDS ORDERED: VALPROIC ACID 250 MG PO SCH ×2 (09:00)
[2017-03-15] MEDS: DIVALPROEX SODIUM 250 MG TABLET.DR PO SCH (09:22)
[2017-03-15] MEDS: VITAMIN B COMP W-C 1 TAB TABLET PO SCH (09:28)
[2017-03-15] MEDS: LEVOTHYROXINE SODIUM 125 MCG TABLET PO SCH (09:28)
[2017-03-15] MEDS: ASPIRIN 325 MG TABLET.DR PO SCH (09:28)
[2017-03-15] MEDS: FERROUS SULFATE 325 MG TABLET PO SCH ×2 (09:28→16:51)
[2017-03-15] MEDS: ALPRAZolam 0.25 MG TABLET PO SCH ×2 (09:29→21:45)
[2017-03-15] MEDS: LISINOPRIL 5 MG TABLET PO SCH (09:29)
[2017-03-15] MEDS: CHOLECALCIFEROL 1,000 UNIT CAPSULE PO SCH (11:40)
[2017-03-15] MEDS ORDERED: CITALOPRAM HYDROBROMIDE 20 MG TABLET PO SCH (17:00)
[2017-03-15] MEDS ORDERED: clonazePAM 0.5 MG TABLET PO SCH (21:00)
[2017-03-15] MEDS ORDERED: DIVALPROEX SODIUM 500 MG TABLET.DR PO SCH (21:00)
[2017-03-15] MEDS ORDERED: MEMANTINE HCL 10 MG TABLET PO SCH (21:00)
[2017-03-15] MEDS ORDERED: METOPROLOL SUCCINATE 25 MG TABLET.SA PO SCH (21:00)
[2017-03-15] MEDS ORDERED: SENNOSIDES/DOCUSATE SODIUM 1 TAB TABLET PO SCH (21:00)
[2017-03-16 07:02] LABS: Valproic Acid 12.9 mcg/mL (50.0-100.0); Vitamin B12 747 pg/mL (193-986)
[2017-03-16] MEDS: LEVOTHYROXINE SODIUM 125 MCG TABLET PO SCH (07:42)
[2017-03-16] MEDS: ACETAMINOPHEN 325 MG TABLET PO SCH ×2 (07:50→11:12)
[2017-03-16] MEDS: LISINOPRIL 5 MG TABLET PO SCH (09:09)
[2017-03-16] MEDS: ALPRAZolam 0.25 MG TABLET PO SCH (09:09)
[2017-03-16] MEDS: VITAMIN B COMP W-C 1 TAB TABLET PO SCH (09:09)
[2017-03-16] MEDS: DIVALPROEX SODIUM 250 MG TABLET.DR PO SCH (09:09)
[2017-03-16] MEDS: ASPIRIN 325 MG TABLET.DR PO SCH (09:09)
[2017-03-16] MEDS: FERROUS SULFATE 325 MG TABLET PO SCH (09:09)
--- NOTE | 2017-03-16 10:06 | DS ---
(1) Seizure Problem: Chronic Qualifiers: Convulsion type: unspecified Qualified Code(s): R56.9 - Unspecified convulsions (2) Dementia Problem: Chronic Qualifiers: Dementia type: unspecified type (3) Pyuria Problem: Acute Description of Stay: Kayley Clark is a 72-year-old female resident at [facility]. She suffers from Alzheimer's dementia and has a seizure disorder. She had a seizure last Sunday during noon hour and was transferred to our emergency room where she was evaluated and then returned to the snf. She did had another seizure and was returned back to the emergency room and seizures were witnessed there well and so she was subsequently admitted. She was subtherapeutic on her valproic acid and we have increased the dose. She continues to be subtherapeutic but it will probably take a week to get to steady state. She has had no further seizures since admission. She was fairly obtunded on admission and would not eat or drink. This morning however she is bright and alert and sitting up and has had breakfast. Change in her overall well-being. She'll be returned to [facility] today. Procedures Performed: none Discharge Disposition: [facility] Disposition: [facility] [place] Condition: Fair Discharge Activity: Activity as tolerated Discharge Diet: General/regular food Discharge Level of Care:: [facility] Additional Patient Instructions (free text): I will follow up with her on snf rounds in about 4 weeks. I'll have a valproic acid level done in 1 week. Prescriptions (Any new or edited meds): Divalproex Sodium [Depakote] 500 mg PO BID #60 tablet. Complete Home Medications List: Complete Home Medication List: Valproic Acid (As Sodium Salt) [Valproic Acid] 250 mg PO BID 12/28/14 Memantine HCl [Namenda] 5 mg PO HS 11/15/15 Levothyroxine Sodium [Synthroid] 125 mcg PO DAILY 04/29/16 Vit B Comp/C/FA/Iron/Vit E [Vitamin B Complex Tablet] 1 each PO DAILY 04/29/16 Lisinopril [Zestril] 5 mg PO DAILY #30 tablet 11/02/16 Metoprolol Succinate 25 mg PO HS #30 tab.er.24h 11/02/16 Citalopram Hydrobromide [Celexa] 40 mg PO DAILY@1700 12/03/16 clonazePAM [Klonopin] 0.5 mg PO HS 12/03/16 Acetaminophen 650 mg PO 0700,1100,1600,2000 02/02/17 ALPRAZolam [Xanax] 0.25 mg PO BID #60 tablet 02/06/17 Aspirin [Aspirin EC] 325 mg PO DAILY #30 tablet. 02/06/17 Cholecalciferol (Vitamin D3) [Vitamin D3] 2,000 unit PO DAILY@1200 #100 Sennosides/Docusate Sodium [Senna-Docusate Sodium Tablet] 1 tab PO HS 03/14/17 Divalproex Sodium [Depakote] 500 mg PO BID #60 tablet. 03/16/17
[2017-03-16 10:49] VITALS: BP 147/70
[2017-03-16] MEDS: CHOLECALCIFEROL 1,000 UNIT CAPSULE PO SCH (11:12)
--- NOTE | 2017-03-27 17:41 | PN ---
Subjective - Date and Time Seen Date: 03/15/17 Time: 19:00 Subjective Narrative: Seizure disorder Objective Objective Narrative: This patient was seen in the emergency room for his seizure. She will return to the skilled nursing only to have another seizure and minimally to be returned to the emergency room where another seizure was witnessed clear. She was then admitted to the hospital. This patient has advanced dementia and is unable to provide any history. She was subtherapeutic on her Dilantin from the lab in the emergency room. - Vitals Vitals: Last Vital Signs Temp 36.7 C 03/16/17 10:47 Pulse 108 H 03/16/17 10:47 Resp 16 03/16/17 10:47 BP 147/70 03/16/17 10:47 Pulse Ox 98 03/16/17 10:47 - Abnormal Lab Findings Abnormal Lab Findings: Valproic acid was low at 12. B12 Lang acid levels are therapeutic. Urinalysis is normal. Assessment/Plan Plan Narrative: Monitor for seizure activity. Increased her Dilantin to 500 mg twice a day. Recheck Dilantin level tomorrow. - Problems/Diagnosis (1) Seizure Problem: Chronic Qualifiers: Convulsion type: unspecified Qualified Code(s): R56.9 - Unspecified convulsions (2) Dementia Problem: Chronic Qualifiers: Dementia type: Alzheimer's disease Alzheimer's disease onset: late-onset Dementia behavioral disturbance: without behavioral disturbance Qualified Code (s): G30.1 - Alzheimer's disease with late onset; F02.80 - Dementia in other diseases classified elsewhere without behavioral disturbance; F02.80 - Dementia in other diseases classified elsewhere without behavioral disturbance; F02.80 - Dementia in other diseases classified elsewhere without behavioral disturbance (3) Pyuria Problem: Acute (4) Hematuria, microscopic Problem: Acute (5) Epilepsy Problem: Chronic Narrative: She did have some pyuria and maybe had a urinary tract infection that triggered her seizures. Most likely the seizures were allowed to occur because she is subtherapeutic on her Dilantin. She has not had any further seizures since admission.
== END 2017-03-16 12:45 | DRG 101 ==
LOC: ER 18:28 → MS 22:20 → OBSVTOIN 03-15 15:37
PROVIDERS: ADMIT Nurse Practitioner; ATTEND Family Medicine
DX: G30.9 Alzheimer's disease, unspecified; Z79.82 Long term (current) use of aspirin; F02.80 Dementia in other diseases classified elsewhere, unspecified severity, without behavioral disturbance, psychotic disturbance, mood disturbance, and anxiety; R00.0 Tachycardia, unspecified; E03.9 Hypothyroidism, unspecified; R56.9 Unspecified convulsions; I10 Essential (primary) hypertension
CPT/HCPCS: 36415; 70450; 80053; 80164; 81001; 82607; 82746; 85025; 87081; 87086; 99284; 99285; G0378

== ENCOUNTER 2017-11-16 13:19 | Observation (INO) | payer BC, MEDICARE ==
--- NOTE | 2017-11-16 13:38 | ERNOTE ---
Chest Pain/Cardiac HPI Date of Service: 11/16/17 Chief Complaint: Chest Pain Time Seen by Provider: 11/16/17 13:26 Source: patient, EMS, RN notes reviewed, residential records Exam Limitations: dementia Immunizations: IMMUNIZATION HX Immunizations Up to Date Yes History of Influenza Vaccine Yes Hx Pneumococcal Vaccination Yes Allergies/Adverse Reactions: Allergies buspirone Adverse Reaction (Mild, Verified 11/16/17 13:25) Fatigue phenobarbital Adverse Reaction (Mild, Verified 11/16/17 13:25) rash phenytoin sodium [From Dilantin] Adverse Reaction (Mild, Verified 11/16/17 13:25) rash Home Medications: HOME MEDICATIONS Vit B Comp/C/FA/Iron/Vit E [Vitamin B Complex Tablet] 1 ea PO DAILY 04/29/16 [Last Taken 03/14/17 10:00] Lisinopril [Zestril] 5 mg PO DAILY #30 tab 11/02/16 [Last Taken 03/14/17 07:00] Metoprolol Succinate 25 mg PO HS #30 tab.er.24h 11/02/16 [Last Taken 03/13/17 20:00] clonazePAM [Klonopin] 0.5 mg PO HS 12/03/16 [Last Taken 03/13/17 21:00] Acetaminophen 650 mg PO 0700,1100,1600,2000 02/02/17 [Last Taken 03/14/17 11:00] ALPRAZolam [Xanax] 0.25 mg PO BID #60 tab 02/06/17 [Last Taken 03/14/17 07:00] Cholecalciferol (Vitamin D3) [Vitamin D3] 2,000 unit PO DAILY@1200 #100 02/06/17 [Last Taken 03/14/17 12:00] Sennosides/Docusate Sodium [Senna-Docusate Sodium Tablet] 1 tab PO HS 03/14/17 [Last Taken 03/13/17 20:00] acetaminophen 300 mg-codeine 60 mg tablet 1 tab PO Q4H PRN 08/23/17 [Last Taken Unknown] levothyroxine 125 mcg capsule 125 mcg PO DAILY 08/23/17 [Last Taken Unknown] saliva substitute combo no.9 mouthwash 15 ml MUCOUS MEMBRANE DAILY PRN 08/23/17 [Last Taken Unknown] tramadol 50 mg tablet 50 mg PO TID PRN tab 08/23/17 [Last Taken Unknown] citalopram 40 mg tablet 20 mg PO DAILY@1700 tab 08/24/17 [Last Taken Unknown] valproic acid (as sodium salt) 250 mg/5 mL syringe (FOR ORAL USE ONLY) 250 mg PO TID 08/24/17 [Last Taken Unknown] Narrative: Kayley is a 72 year old female brought to the ED by ambulance from [facility] for chest pain. She was reported to be gesturing at her chest as though she was in pain. This has stopped by the time the ambulance arrived. The patient has dementia and is oriented to self only. She denies any pain currently. She reports that she feels okay, but then says there was something funny in her chest. She was given 4 baby aspirin [employer]. Date (Duration): 11/16/17 Timing: resolved prior to arrival Location: central Activities at Onset: none Nitro Today/Relief: no nitro taken today Aspirin Treatment Today: 81 mg x 4 Prior Chest Pain/Cardiac Workup: Denies: heart attack Prior Treatment: Reports: recently seen - by PCP on residential rounds Medical History (Last Reviewed 11/16/17 @ 13:24 by Karolyn Calderon RN) Abnormal mammogram Onset Date: Unknown Acute ischemic left MCA stroke Onset Date: Unknown Allergic rhinitis Onset Date: 04/11/15 Anxiety Onset Date: Unknown Chicken pox Onset Date: Unknown Colon polyps Onset Date: 10/10/10 Dementia Onset Date: 11/11/12 Depression Onset Date: Unknown Dyspnea on exertion Onset Date: 04/11/13 Epilepsy Onset Date: Unknown Hypertension Onset Date: Unknown Hypothyroid Onset Date: Unknown Long-term use of high-risk medication Onset Date: 03/10/13 Measles Onset Date: Unknown Memory difficulties Onset Date: 04/11/15 Mumps Onset Date: Unknown Myalgia and myositis Onset Date: 08/05/12 Postconcussion syndrome Onset Date: Unknown Right patella fracture Onset Date: Unknown Seizure disorder Onset Date: 07/08/13 Shoulder dislocation Onset Date: Unknown Shoulder pain, right Onset Date: 11/11/12 Tachycardia Onset Date: Unknown Tremor Onset Date: 11/11/12 Unsteadiness on feet Onset Date: Unknown Weakness Onset Date: Unknown Wrist fracture Onset Date: Unknown Surgical History: Surgical History (Last Reviewed 11/16/17 @ 13:24 by Karolyn Calderon RN) H/O reduction of closed dislocation Onset Date: 04/29/16 H/O reduction of closed fracture Onset Date: 07/29/17 History of hemiarthroplasty of left hip Onset Date: 02/02/17 S/P ANN MARIE (total abdominal hysterectomy) Onset Date: 1969 S/P colonoscopy Onset Date: 10/10/10 Family History: Family History (Last Reviewed 11/16/17 @ 13:24 by Karolyn Calderon RN) Father Cancer Arthritis Polio Mother Hypertension Heart disease Head injury Grandmother Alzheimers disease Social History: Preferred Language Hungarian Smoking Status Unknown if ever smoked Abuse History No History of abuse Psych History Hx of Anxiety,Hx of Depression,Currently on Meds Physical Exam - Physical Exam General Appearance: Present: wd/wn, alert, no apparent distress Head Exam: Present: normal inspection Eye Exam: Normal inspection: bilateral Ears, Nose, Throat: Present: normal ENT inspection Neck: Present: normal inspection, nontender, supple Respiratory: Present: no respiratory distress, normal breath sounds, no accessory muscle use, chest nontender, lungs clear Cardiovascular/Chest: Present: regular rate, rhythm, no murmur, normal peripheral pulses Gastrointestinal/Abdominal: Present: nontender, nondistended, soft Extremity Exam: Present: normal inspection, non-tender Neurological Exam: Present: alert, normal mood/affect, no motor/sensory deficits, disoriented to person, disoriented to time, disoriented to place, disoriented to situation. Absent: oriented Skin Exam: Present: normal color, warm/dry ED Progress - Results and Orders Patient's Lab Results:: I have reviewed the patient's lab results. - Vital Signs Patient's Vital Signs:: I have reviewed the patient's vital signs. Vital Signs: Vital Signs 11/16/17 13:19 Temperature 37.0 C Pulse Rate 82 Respiratory Rate 17 Blood Pressure 124/75 O2 Sat by Pulse Oximetry 96 - EKG EKG: NSR EKG read: Reviewed by me - X-Ray X-Ray #1 X-Ray: chest Interpretation: Reviewed by me X-ray Comments: Hypoinflated lungs without acute cardiopulmonary pathology - Progress/Reassessment Chief Complaint: Chest Pain Progress:: Unchanged Plan - Plan Plan: Initial troponin is negative and EKG is unremarkable, but as the patient unable to give any history or accurately report her symptoms she will be admitted to observation status to r/o GA. Departure Clinical Impression: Chest pain, rule out acute myocardial infarction - Departure Disposition: Still a patient Condition: Stable
[2017-11-16 13:57] LABS: Hematocrit 34.9 % (37.0-47.0); Hemoglobin 11.6 gm/dL (12.5-16.0); Mean Cell Volume 103.9 fl (78-100); Mean Corpuscular Hemoglobin 34.5 pg (27-31); Mean Corpuscular Hgb Conc 33.2 g/dl (32-36); Mean Platelet Volume 9.9 fl (8-12.5); Neutrophil # 4.2 K/mm3 (1.3-6.0); Neutrophil % 57.2 % (42-75.0); Platelet Count 181 K/mm3 (150-450); Red Blood Count 3.36 M/mm3 (4.2-5.4); Red Cell Distribution Width 13.2 % (11.5-14.0); White Blood Count 7.3 K/mm3 (4.0-10.5)
[2017-11-16 14:05] LABS: Prothrombin Time (Patient) 10.1 Seconds (9.0-11.0)
[2017-11-16 14:14] LABS: INR 1.01 INR (0.90-1.10); Partial Thrombolplastin Time 25.1 Seconds (24-32)
[2017-11-16 14:15] LABS: ALT 80 U/L (19-67); AST 185 U/L (0-48); Albumin * 2.9 gm/dl (3.4-5.0); Alkaline Phosphatase * 135 U/L (50-170); Anion Gap 5.1 mmol/L (6.8-13.8); BUN/Creatinine Ratio 21.9 (9.0-21.6); Bilirubin, Total 0.3 mg/dL (0.0-1.1); Blood Urea Nitrogen 16 mg/dL (3-23); Ca. Corrected For Albumin 9.1 mg/dL (8.4-10.2); Calcium * 8.5 mg/dL (7.9-10.9); Carbon Dioxide 32.7 mmol/L (24-32.6); Chloride 102 mmol/L (97-106); Glucose * 96 mg/dL (70-110); Potassium 3.8 mmol/L (3.4-4.6); Sodium 136 mmol/L (132-142); Total Protein 6.3 gm/dL (6.2-8.2); Troponin I Less than 0.017 ng/mL (0.00-0.10)
[2017-11-16] MEDS: ACETAMINOPHEN 325 MG TABLET PO SCH (20:39)
[2017-11-16] MEDS ORDERED: clonazePAM 0.5 MG TABLET PO SCH (21:00)
[2017-11-16] MEDS ORDERED: METOPROLOL SUCCINATE 25 MG TABLET.SA PO SCH (21:00)
[2017-11-16] MEDS ORDERED: SENNOSIDES/DOCUSATE SODIUM 1 TAB TABLET PO SCH (21:00)
--- NOTE | 2017-11-16 23:09 | HP ---
Chief Complaint - Chief Complaint Date of Service: 11/16/17 Time of Service: 16:00 Chief Complaint: Chest Pain History of Present Illness: Kayley is a 72yo female with dementia, a resident of [facility]. In the [facility] today she reported to nursing she was having chest pain and clutched her chest. EMS was called who brought her to [facility] ER. EMS reported that from their arrival she denied chest pain. History from patient is poor due to her dementia. ER evaluated the patient for chest pain with troponin, EKG, and chest xray. There was no evidence of acute problem. She continued to deny chest pain in the ER. However, due to her dementia it is hard to know. ER contacted medicine retail sales associate seasonal for observation to evaluate further. At the time of my examination she denies any concerns and just wants to sleep. Medical History (Last Updated 11/16/17 @ 17:40 by Maddison Hannah RN) Acute ischemic left MCA stroke (Acute) Onset Date: Unknown Allergic rhinitis (Acute) Onset Date: 04/11/15 Anxiety (Acute) Onset Date: Unknown Dementia (Acute) Onset Date: 11/11/12 question as to whether she has this or not, but does have early signs, though it could be more depression, yet she denies being depressed. she declined meds and neurology consult at this time. Depression (Acute) Onset Date: Unknown Epilepsy (Acute) Onset Date: Unknown age 13 Hypertension (Acute) Onset Date: Unknown Hypothyroid (Acute) Onset Date: Unknown age 3 had goiter was treated w/ iodine Memory difficulties (Acute) Onset Date: 04/11/15 Postconcussion syndrome (Acute) Onset Date: Unknown Seizure disorder (Acute) Onset Date: 07/08/13 Shoulder dislocation (Acute) Onset Date: Unknown Shoulder pain, right (Acute) Onset Date: 11/11/12 some frozen shoulder sx., recommended impingement exercises and possible PT. she declined PT Tachycardia (Acute) Onset Date: Unknown Unsteadiness on feet (Acute) Onset Date: Unknown Weakness (Acute) Onset Date: Unknown Abnormal mammogram Onset Date: Unknown Chicken pox Onset Date: Unknown Colon polyps Onset Date: 10/10/10 Bagan-polyps @ 25 cm and 20 cm. Dyspnea on exertion Onset Date: 04/11/13 Long-term use of high-risk medication Onset Date: 03/10/13 Measles Onset Date: Unknown Mumps Onset Date: Unknown Myalgia and myositis Onset Date: 08/05/12 Right patella fracture Onset Date: Unknown Tremor Onset Date: 11/11/12 Wrist fracture Onset Date: Unknown Surgical History: Surgical History (Last Updated 11/16/17 @ 17:40 by Maddison Hannah RN) H/O reduction of closed fracture (Acute) Onset Date: 07/29/17 closed reduction of right distal radius fracture with manipulation under MAC anesthesia with short arm application Arcenio Jean PA-C History of hemiarthroplasty of left hip (Acute) Onset Date: 02/02/17 Left hip cemented juan-arthroplasty per Dr Busch H/O reduction of closed dislocation Onset Date: 04/29/16 closed reduction left shoulder dislocation with anesthesia Dr Busch S/P ANN MARIE (total abdominal hysterectomy) Onset Date: 1969 S/P colonoscopy Onset Date: 10/10/10 Bagan-polyps @ 25 cm & 20 cm.-both benign adenomatous polyps-procedure was only to 50 cm due to redundant colon, pt. will require barium enema for future colon screenings Family History: Family History (Last Reviewed 11/16/17 @ 13:24 by Karolyn Calderon RN) Father , 63 Cancer Arthritis Polio Mother , 71 Hypertension Heart disease Head injury Grandmother Alzheimers disease Social History: Patient Lives/Resources [facility] Utilized Occupation Sons Preferred Language Croatian Do you have any taoist or No cultural preference? Smoking Status Unknown if ever smoked Have you smoked in the past 12 No months Abuse History No History of abuse Psych History Hx of Anxiety,Hx of Depression,Currently on Meds Review Of Systems (GEN) - Review of Systems Generalized/Overall Review: Present: No Symptoms Reported EENTM: Present: No Symptoms Reported Respiratory: Present: No Symptoms Reported Cardiac: Present: No Symptoms Reported Abdominal: Present: No Symptoms Reported Genitourinary: Present: No Symptoms Reported Musculoskeletal: Present: No Symptoms Reported Neurological: Present: No Symptoms Reported Skin: Present: No Symptoms Reported Endocrine: Present: No Symptoms Reported Additional Comments: Patient is a poor historian. She denies any current focal concerns. She only reports that she wants to sleep. Immunizations: IMMUNIZATION HX Immunizations Up to Date Yes History of Influenza Vaccine Yes Hx Pneumococcal Vaccination Yes Allergies/Adverse Reactions: Allergies Allergy/AdvReac Type Severity Reaction Status Date / Time buspirone AdvReac Mild Fatigue Verified 11/16/17 17:41 phenobarbital AdvReac Mild rash Verified 11/16/17 17:41 phenytoin sodium AdvReac Mild rash Verified 11/16/17 17:41 [From Serena] Home Medications: HOME MEDICATIONS Vit B Comp/C/FA/Iron/Vit E [Vitamin B Complex Tablet] 1 ea PO DAILY 04/29/16 [Last Taken 03/14/17 10:00] Lisinopril [Zestril] 5 mg PO DAILY #30 tab 11/02/16 [Last Taken 03/14/17 07:00] Metoprolol Succinate 25 mg PO HS #30 tab.er.24h 11/02/16 [Last Taken 03/13/17 20:00] Acetaminophen 650 mg PO 0700,1100,1600,2000 02/02/17 [Last Taken 03/14/17 11:00] Sennosides/Docusate Sodium [Senna-Docusate Sodium Tablet] 1 tab PO HS 03/14/17 [Last Taken 03/13/17 20:00] levothyroxine 125 mcg capsule 125 mcg PO DAILY 08/23/17 [Last Taken Unknown] saliva substitute combo no.9 mouthwash 15 ml MUCOUS MEMBRANE DAILY PRN 08/23/17 [Last Taken Unknown] citalopram 40 mg tablet 20 mg PO DAILY tab 08/24/17 [Last Taken Unknown] valproic acid (as sodium salt) 250 mg/5 mL syringe (FOR ORAL USE ONLY) 250 mg PO TID 08/24/17 [Last Taken Unknown] ALPRAZolam [Xanax] 0.25 mg PO DAILY 11/16/17 [Last Taken Unknown] Menthol/Zinc Oxide [Calmoseptine Ointment] 71 gm TOPICAL BID PRN 11/16/17 [Last Taken Unknown] cholecalciferol (vitamin D3) 2,000 unit capsule 2,000 unit PO DAILY 11/28/17 [Last Taken Unknown] clonazepam 1 mg tablet 0.5 mg PO HS tab 11/28/17 [Last Taken Unknown] Exam - Exam Vital Signs: Vital Signs - Last Taken Temp 36.6 C 11/16/17 16:56 Pulse 76 11/16/17 20:38 Resp 20 11/16/17 16:56 BP 141/72 11/16/17 20:38 Pulse Ox 100 11/16/17 16:56 Constitutional: Present: Alert. Absent: Oriented x3 ENT Exam: Present: hearing grossly normal Eye Exam: bilateral eye: normal inspection Respiratory: Present: lungs clear, normal breath sounds Cardiovascular/Chest: Present: regular rate, rhythm, no murmur Abdomen: Present: Normal bowel sounds, soft, nontender, nondistended Skin Exam: Present: normal color, warm/dry, no cyanosis Neurologic: Present: alert, disoriented x 3 Eye contact: Present: refused to answer - reports she just wants to sleep Diagnostic Studies: Abnormal Lab Results 11/16/17 11/16/17 Range/Units 13:45 13:45 RBC 3.36 L (4.2-5.4) M/mm3 Hgb 11.6 L (12.5-16.0) gm/dL Hct 34.9 L (37.0-47.0) % MCV 103.9 H (78-100) fl MCH 34.5 H (27-31) pg Monocytes % 9.5 H (0.0-9) % Carbon Dioxide 32.7 H (24-32.6) mmol/L Anion Gap 5.1 L (6.8-13.8) mmol/L BUN/Creatinine Ratio 21.9 H (9.0-21.6) AST 185 H (0-48) U/L ALT 80 H (19-67) U/L Albumin 2.9 L (3.4-5.0) gm/dl Laboratory Results WBC 7.3 K/mm3 (4.0-10.5) 11/16/17 13:45 RBC 3.36 M/mm3 (4.2-5.4) L 11/16/17 13:45 Hgb 11.6 gm/dL (12.5-16.0) L 11/16/17 13:45 Hct 34.9 % (37.0-47.0) L 11/16/17 13:45 MCV 103.9 fl (78-100) H 11/16/17 13:45 MCH 34.5 pg (27-31) H 11/16/17 13:45 MCHC 33.2 g/dl (32-36) 11/16/17 13:45 RDW 13.2 % (11.5-14.0) 11/16/17 13:45 Plt Count 181 K/mm3 (150-450) 11/16/17 13:45 MPV 9.9 fl (8-12.5) 11/16/17 13:45 Immature Gran % (Auto) 0.30 % (0.001-0.429) 11/16/17 13:45 Immature Gran # (Auto) 0.02 K/mm3 (0.000-0.0310) 11/16/17 13:45 Neutrophils % 57.2 % (42-75.0) 11/16/17 13:45 Lymphocytes % 31.9 % (20-51) 11/16/17 13:45 Monocytes % 9.5 % (0.0-9) H 11/16/17 13:45 Eosinophils % 0.7 % (0.0-3.0) 11/16/17 13:45 Basophils % 0.4 % (0.0-1.0) 11/16/17 13:45 Nucleated RBC % 0.0 k/mm3 (0-1) 11/16/17 13:45 Neutrophils # 4.2 K/mm3 (1.3-6.0) 11/16/17 13:45 Lymphocytes # 2.33 k/mm3 (1.5-3.5) 11/16/17 13:45 Monocytes # 0.7 k/mm3 (0.0-1.0) 11/16/17 13:45 Eosinophils # 0.1 k/mm3 (0.0-0.7) 11/16/17 13:45 Absolute Basophils 0.0 k/mm3 (0.0-0.1) 11/16/17 13:45 PT 10.1 Seconds (9.0-11.0) 11/16/17 13:45 INR (Anticoag Therapy) 1.01 INR (0.90-1.10) 11/16/17 13:45 PTT ([place]) 25.1 Seconds (24-32) 11/16/17 13:45 Sodium 136 mmol/L (132-142) 11/16/17 13:45 Plasma Sodium 136 mmol/L (130-142) 11/16/17 13:45 Potassium 3.8 mmol/L (3.4-4.6) 11/16/17 13:45 Chloride 102 mmol/L (97-106) 11/16/17 13:45 Carbon Dioxide 32.7 mmol/L (24-32.6) H 11/16/17 13:45 Anion Gap 5.1 mmol/L (6.8-13.8) L 11/16/17 13:45 BUN 16 mg/dL (3-23) 11/16/17 13:45 Creatinine 0.73 mg/dL (0.4-1.4) 11/16/17 13:45 Est GFR (Non-Af Amer) 83 mL/min (60-130) 11/16/17 13:45 BUN/Creatinine Ratio 21.9 (9.0-21.6) H 11/16/17 13:45 Random Glucose 96 mg/dL (70-110) 11/16/17 13:45 Calcium 8.5 mg/dL (7.9-10.9) 11/16/17 13:45 Calcium Adj for Albumin 9.1 mg/dL (8.4-10.2) 11/16/17 13:45 Total Bilirubin 0.3 mg/dL (0.0-1.1) 11/16/17 13:45 AST 185 U/L (0-48) H 11/16/17 13:45 ALT 80 U/L (19-67) H 11/16/17 13:45 Alkaline Phosphatase 135 U/L (50-170) 11/16/17 13:45 Troponin I Less than 0.017 ng/mL (0.00-0.10) 11/16/17 20:00 Total Protein 6.3 gm/dL (6.2-8.2) 11/16/17 13:45 Albumin 2.9 gm/dl (3.4-5.0) L 11/16/17 13:45 Assessment/Plan - Assessment/Plan (1) Chest pain Assessment: Michelle is a 72 yo patient with dementia who had clutching chest pain at the [facility]. Since that time she has been at her baseline and has no reported concerns. Due to her dementia it is hard to get an accurate view of her current symptoms. Because of this will admit to observation, place on telemetry, and repeat troponin. If no evidence of acute injury will plan to discharge back to [facility] tomorrow morning. Problem: Acute Qualifiers: Chest pain type: unspecified Qualified Code(s): R07.9 - Chest pain, unspecified
[2017-11-17] MEDS ORDERED: VALPROIC ACID 250 MG PO SCH (09:00)
[2017-11-17] MEDS: LISINOPRIL 5 MG TABLET PO SCH ×2 (10:14→10:31)
[2017-11-17] MEDS: LEVOTHYROXINE SODIUM 125 MCG TABLET PO SCH ×2 (10:14→10:31)
[2017-11-17] MEDS: ALPRAZolam 0.25 MG TABLET PO SCH ×2 (10:14→10:31)
[2017-11-17] MEDS: CITALOPRAM HYDROBROMIDE 20 MG TABLET PO SCH ×2 (10:15→10:31)
[2017-11-17] MEDS: ACETAMINOPHEN 325 MG TABLET PO SCH ×2 (10:16→10:31)
--- NOTE | 2017-11-17 11:06 | DS ---
(1) Chest pain Problem: Acute Qualifiers: Chest pain type: unspecified Qualified Code(s): R07.9 - Chest pain, unspecified (2) Dementia Problem: Chronic Qualifiers: Dementia type: Alzheimer's disease Alzheimer's disease onset: late-onset Dementia behavioral disturbance: without behavioral disturbance Qualified Code(s): G30.1 - Alzheimer's disease with late onset; F02.80 - Dementia in other diseases classified elsewhere without behavioral disturbance; F02.80 - Dementia in other diseases classified elsewhere without behavioral disturbance; F02.80 - Dementia in other diseases classified elsewhere without behavioral disturbance Description of Stay: Kayley is a 72 yo female with dementia at the [facility]. She had reported chest pain at the [facility] and was brought to ER to evaluate. Initial work up was negative for acute DE with negative troponin and no EKG change. Due to her dementia it was difficult to get a history and from her time in the hospital she denied chest pain. She was admitted for observation. Repeat troponin showed no elevation. Kayley reports doing well this morning and has no concerns. She denies chest pain and will be discharged to [facility]. Procedures Performed: none Results and Findings: Lab Pending Results 11/16/17 13:45: WBC 7.3, RBC 3.36 L, Hgb 11.6 L, Hct 34.9 L, MCV 103.9 H, MCH 34.5 H, MCHC 33.2, RDW 13.2, Plt Count 181, MPV 9.9, Immature Gran % (Auto) 0.30, Immature Gran # (Auto) 0.02, Neutrophils % 57.2, Lymphocytes % 31.9, Monocytes % 9.5 H, Eosinophils % 0.7, Basophils % 0.4, Nucleated RBC % 0.0, Neutrophils # 4.2, Lymphocytes # 2.33, Monocytes # 0.7, Eosinophils # 0.1, Absolute Basophils 0.0 11/16/17 13:45: PT 10.1, INR (Anticoag Therapy) 1.01, PTT ([place]) 25.1 11/16/17 13:45: Sodium 136, Plasma Sodium 136, Potassium 3.8, Chloride 102, Carbon Dioxide 32.7 H, Anion Gap 5.1 L, BUN 16, Creatinine 0.73, Est GFR (Non-Af Amer) 83, BUN/Creatinine Ratio 21.9 H, Random Glucose 96, Calcium 8.5, Calcium Adj for Albumin 9.1, Total Bilirubin 0.3, AST 185 H, ALT 80 H, Alkaline Phosphatase 135, Troponin I Less than 0.017, Total Protein 6.3, Albumin 2.9 L 11/16/17 20:00: Troponin I Less than 0.017 Discharge Location: [facility] Disposition: Intermediate Care Facility ICF Condition: Stable Discharge Activity: Activity as tolerated Discharge Diet: General/regular food Referrals: Alfredito Paez DO [Primary Care Provider] - (To follow at [facility].) Problem Oriented Discharge Instructions to Patient/Family: Chest Pain Observation Additional Patient Instructions (free text): -Please make TCM appointment unless usp discharge. Thank you! Joyce @ [phone]. Complete Home Medications List: Complete Home Medication List: Vit B Comp/C/FA/Iron/Vit E [Vitamin B Complex Tablet] 1 ea PO DAILY 04/29/16 Lisinopril [Zestril] 5 mg PO DAILY #30 tab 11/02/16 Metoprolol Succinate 25 mg PO HS #30 tab.er.24h 11/02/16 clonazePAM [Klonopin] 0.25 mg PO HS 12/03/16 Acetaminophen 650 mg PO 0700,1100,1600,2000 02/02/17 Sennosides/Docusate Sodium [Senna-Docusate Sodium Tablet] 1 tab PO HS 03/14/17 levothyroxine 125 mcg capsule 125 mcg PO DAILY 08/23/17 saliva substitute combo no.9 mouthwash 15 ml MUCOUS MEMBRANE DAILY PRN 08/23/17 citalopram 40 mg tablet 20 mg PO DAILY tab 08/24/17 valproic acid (as sodium salt) 250 mg/5 mL syringe (FOR ORAL USE ONLY) 250 mg PO TID 08/24/17 ALPRAZolam [Xanax] 0.25 mg PO DAILY 11/16/17 Menthol/Zinc Oxide [Calmoseptine Ointment] 71 gm TP BID PRN 11/16/17
[2017-11-17 11:15] VITALS: BP 138/57
== END 2017-11-17 11:23 ==
LOC: MS 13:19 → ER 13:19 → MS 15:33
PROVIDERS: ADMIT Family Medicine; ATTEND Family Medicine
CPT/HCPCS: 36415; 71010; 71045; 80053; 84484; 85025; 85610; 85730; 87081; 93005; 99284; G0378

== ENCOUNTER 2019-02-18 14:30 | Inpatient (IN) ==
[2019-02-18] MEDS ORDERED: NORMAL SALINE 1,000 ML IV ONE (14:49)
[2019-02-18 15:10] LABS: Hematocrit 42.1 % (37.0-47.0); Hemoglobin 13.9 gm/dL (12.5-16.0); Mean Cell Volume 109.1 fl (78-100); Mean Platelet Volume 10.5 fl (8-12.5); Neutrophil # 6.5 K/mm3 (1.3-6.0); Neutrophil % 71.6 % (42-75.0); Platelet Count 175 K/mm3 (150-450); Red Blood Count 3.86 M/mm3 (4.2-5.4); Red Cell Distribution Width 13.7 % (11.5-14.0)
--- NOTE | 2019-02-18 15:13 | ERNOTE ---
Neuro HPI ER Record Date of Service: 02/18/19 Presenting Symptoms: weakness, other Time Seen by Provider: 02/18/19 14:44 Source: EMS, alf records Immunizations: IMMUNIZATION HX Immunizations Up to Date Yes History of Influenza Vaccine Yes Hx Pneumococcal Vaccination Yes Allergies/Adverse Reactions: Allergies Allergy/AdvReac Type Severity Reaction Status Date / Time buspirone AdvReac Mild Fatigue Verified 02/18/19 15:04 phenobarbital AdvReac Mild rash Verified 02/18/19 15:04 phenytoin sodium AdvReac Mild rash Verified 02/18/19 15:04 [From Dilantin] Home Medications: HOME MEDICATIONS Lisinopril [Zestril] 5 mg PO DAILY #30 tab 11/02/16 [Last Taken 03/14/17 07:00] Metoprolol Succinate 25 mg PO HS #30 tab.er.24h 11/02/16 [Last Taken 03/13/17 20:00] Acetaminophen 650 mg PO 0700,1100,1600,2000 02/02/17 [Last Taken 03/14/17 11:00] Sennosides/Docusate Sodium [Senna-Docusate Sodium Tablet] 1 tab PO HS 03/14/17 [Last Taken 03/13/17 20:00] saliva substitute combo no.9 15 ml MUCOUS MEMBRANE DAILY PRN 08/23/17 [Last Taken Unknown] citalopram 40 mg tablet 20 mg PO DAILY tab 08/24/17 [Last Taken Unknown] valproic acid (as sodium salt) 250 mg/5 mL syringe (FOR ORAL USE ONLY) 20 ml PO TID 08/24/17 [Last Taken Unknown] ALPRAZolam [Xanax] 0.25 mg PO DAILY 11/16/17 [Last Taken Unknown] Menthol/Zinc Oxide [Calmoseptine Ointment] 71 gm TOPICAL BID PRN 11/16/17 [Last Taken Unknown] cholecalciferol (vitamin D3) 2,000 unit capsule 2,000 unit PO DAILY 11/28/17 [Last Taken Unknown] clonazepam 1 mg tablet 0.5 mg PO HS tab 11/28/17 [Last Taken Unknown] levothyroxine 150 mcg capsule 150 mcg PO DAILY #45 cap 01/29/19 [Last Taken Unknown] - History of Present Illness Narrative: patient presents from alf with symptoms of unresponsive and low bp. known hx of dementia and is noted to be a dnr Onset: cannot confirm onset Severity: moderate - Character of Deficits New weakness: Present: general (diffuse) Additional Deficits: Present: off balance Baseline Cognition: Present: poor alertness Baseline Gait: Present: walks only w/ assistance Associated Symptoms: Reports: altered mental status, disoriented Prior Treament: Reports: recently seen, treated by physician Review of Systems - Review of Systems Constitutional: Present: See HPI, other - unable to obtain ros due to unresponsiveness and dementia Medical History (Last Reviewed 02/18/19 @ 15:24 by Mandie Meléndez RN) Seizure (Chronic) Hyperlipidemia (Chronic) Acute ischemic left MCA stroke (Resolved) Onset Date: Unknown Allergic rhinitis (Acute) Onset Date: 04/11/15 Anxiety (Acute) Onset Date: Unknown Dementia (Chronic) Onset Date: 11/11/12 question as to whether she has this or not, but does have early signs, though it could be more depression, yet she denies being depressed. she declined meds and neurology consult at this time. Depression (Acute) Onset Date: Unknown Epilepsy (Acute) Onset Date: Unknown age 13 Hypertension (Chronic) Onset Date: Unknown Hypothyroid (Chronic) Onset Date: Unknown age 3 had goiter was treated w/ iodine Memory difficulties (Chronic) Onset Date: 04/11/15 Postconcussion syndrome (Acute) Onset Date: Unknown Seizure disorder (Chronic) Onset Date: 07/08/13 Shoulder dislocation (Acute) Onset Date: Unknown Shoulder pain, right (Acute) Onset Date: 11/11/12 some frozen shoulder sx., recommended impingement exercises and possible PT. she declined PT Tachycardia (Acute) Onset Date: Unknown Unsteadiness on feet (Acute) Onset Date: Unknown Weakness (Chronic) Onset Date: Unknown Abnormal mammogram Onset Date: Unknown Chicken pox Onset Date: Unknown Colon polyps Onset Date: 10/10/10 Bagan-polyps @ 25 cm and 20 cm. Dyspnea on exertion Onset Date: 04/11/13 Long-term use of high-risk medication Onset Date: 03/10/13 Measles Onset Date: Unknown Mumps Onset Date: Unknown Myalgia and myositis Onset Date: 08/05/12 Right patella fracture Onset Date: Unknown Tremor Onset Date: 11/11/12 Wrist fracture Onset Date: Unknown Surgical History: Surgical History (Last Reviewed 02/18/19 @ 15:24 by Mandie Meléndez, RN) H/O reduction of closed fracture (Acute) Onset Date: 07/29/17 closed reduction of right distal radius fracture with manipulation under MAC anesthesia with short arm application Arcenio Jean PA-C History of hemiarthroplasty of left hip (Acute) Onset Date: 02/02/17 Left hip cemented juan-arthroplasty per Dr Busch H/O reduction of closed dislocation Onset Date: 04/29/16 closed reduction left shoulder dislocation with anesthesia Dr Busch S/P ANN MARIE (total abdominal hysterectomy) Onset Date: 1969 S/P colonoscopy Onset Date: 10/10/10 Bagan-polyps @ 25 cm & 20 cm.-both benign adenomatous polyps-procedure was only to 50 cm due to redundant colon, pt. will require barium enema for future colon screenings Family History: Family History (Last Reviewed 02/18/19 @ 15:24 by Mandie Meléndez, RN) Father , 63 Cancer Arthritis Polio Mother , 71 Hypertension Heart disease Head injury Grandmother Alzheimers disease Social History: (Last Reviewed 02/18/19 @ 15:24 by Mandie Meléndez, RN) Social History: Marital status: / household members: spouse current occupational status: retired Highest education level completed: high school graduate Service: No Tobacco: Smoking Status: Unknown if ever smoked Alcohol: alcohol intake: current alcohol intake frequency: holiday/special occasion Substance Use: substance use type: does not use Dietary Habits: caffeine: Yes Type: coffee, tea Marion/Spiritism: marion/moravian: Jain Physical Exam - Physical Exam General Appearance: Present: lethargic Head Exam: Present: normal inspection, no evidence of injury Eye Exam: Normal inspection: bilateral, PERRL: bilateral, EOMI: bilateral Ears, Nose, Throat: Present: normal ENT inspection, normal pharynx Neck: Present: normal inspection, nontender Respiratory: Present: no respiratory distress, normal breath sounds, no accessory muscle use, chest nontender, lungs clear Cardiovascular/Chest: Present: regular rate, rhythm, no murmur, normal peripheral pulses Gastrointestinal/Abdominal: Present: normal bowel sounds, nontender, nondistended, soft Back Exam: Present: normal inspection, normal range of motion, no CVA tenderness, no vertebral tenderness Extremity Exam: Present: normal inspection, non-tender, normal range of motion, no edema Neurological Exam: Present: disoriented to person, disoriented to time, disoriented to place, disoriented to situation Skin Exam: Present: normal color, warm/dry Lymphatic Exam: Present: no adenopathy Peter Coma Scale - Assess Eye Opening: To Pain Motor: Localizes to Pain Verbal: Incomprehensible - Total Coma Scale Total: 9 Progress - Date and Time Seen: Date and Time: 02/18/19 16:19 patient unchanged, discussed case with dr miranda accepted for admission - Results and Orders Patient's Lab Results:: I have reviewed the patient's lab results. - Vital Signs Patient's Vital Signs:: I have reviewed the patient's vital signs. Vital Signs: Vital Signs 02/18/19 14:36 Temperature 36 C Pulse Rate 95 Respiratory Rate 17 Blood Pressure 101/58 O2 Sat by Pulse Oximetry 100 - EKG EKG #1 EKG: NSR - X-Ray X-Ray #1 X-Ray: chest Interpretation: Discd w/ radiologist - no acute process - Progress/Reassessment Chief Complaint: Altered Mental Status - Transfer of Care Expected Disposition: Admit Plan - Plan Plan: to admit to hospital Departure Clinical Impression: Hypernatremia, Elevated troponin I level, Hypokalemia - Departure Disposition: Short Term Hospital Inpatient Condition: Serious Referrals: Alfredito Miranda DO [Primary Care Provider] -
[2019-02-18 15:36] LABS: BUN/Creatinine Ratio 28.3 (9.0-21.6); Blood Urea Nitrogen 52 mg/dL (3-23); Chloride 115 mmol/L (97-106); Glucose * 150 mg/dL (70-110); Potassium 2.6 mmol/L (3.4-4.6); Sodium 159 mmol/L (132-142)
[2019-02-18 15:37] LABS: ALT 26 U/L (19-67); AST 41 U/L (0-48); Albumin * 3.1 gm/dl (3.4-5.0); Alkaline Phosphatase * 99 U/L (50-170); Anion Gap 11.1 mmol/L (6.8-13.8); Bilirubin, Total 0.5 mg/dL (0.0-1.1); Ca. Corrected For Albumin 9.2 mg/dL (8.4-10.2); Calcium * 8.8 mg/dL (7.9-10.9); Carbon Dioxide 35.5 mmol/L (24-32.6); Total Protein 6.6 gm/dL (6.2-8.2)
[2019-02-18 15:44] LABS: Urine Appearance Clear (CLEAR); Urine Color Dark Yellow
[2019-02-18 15:47] LABS: Troponin I 0.215 ng/mL (0.00-0.10)
[2019-02-18 15:48] LABS: Urine Blood Negative /ul (NEGATIVE); Urine Ketone 5 mg/dL (NEGATIVE); Urine Nitrite Negative (NEGATIVE); Urine Protein 15 mg/dL (NEGATIVE); Urine Urobilinogen Normal (NORMAL)
[2019-02-18] MEDS ORDERED: cefTRIAXone SODIUM 1,000 MG/100 ML BAG IV ONE (15:48)
[2019-02-18 15:49] LABS: Urine Bacteria None Seen; Urine RBC None Seen /hpf (0-5); Urine WBC 0-5 /hpf (0-5)
[2019-02-18 15:50] LABS: Urine Bilirubin Negative (NEGATIVE)
[2019-02-18] MEDS ORDERED: POTASSIUM CHLORIDE 20 MEQ in 0.5 NORMAL SALINE 1,000 ML IV SCH ×2 (16:15→17:00)
[2019-02-18] MEDS ORDERED: ENOXAPARIN SODIUM 40 MG/0.4 ML SYRG SC SCH ×2 (19:30)
--- NOTE | 2019-02-18 20:07 | HP ---
Chief Complaint - Chief Complaint Date of Service: 02/18/19 Time of Service: 19:30 Chief Complaint: weak, obtunded, acutely ill History of Present Illness: Rosario Child is a 74-year-old female resident at the [facility]. She became acutely weak and hypotensive at the [place] [facility]. She was sent to the hospital ER and was found to be septic presumably from UTI and is admitted to general medical floor. She has a DNR. She is received 3 L of IV fluid and her blood pressure is more stable now. She still not responsive to verbal or tactile stimuli but I expect that will improve by morning. She is on IV Rocephin and azithromycin for antibiotics. Rosario's baseline mental status is of being pleasantly confused. She is nonconversant. She occasionally says a few words but they are usually inappropriate for the conversation. Ordinarily she is a good eater and drinker and usually stays in good health. VTE prophylaxis is ordered. Repeat morning labs ordered. Medical History (Last Reviewed 02/18/19 @ 17:44 by Rick Manuel RN) Seizure (Chronic) Hyperlipidemia (Chronic) Acute ischemic left MCA stroke (Resolved) Onset Date: Unknown Allergic rhinitis (Acute) Onset Date: 04/11/15 Anxiety (Acute) Onset Date: Unknown Dementia (Chronic) Onset Date: 11/11/12 question as to whether she has this or not, but does have early signs, though it could be more depression, yet she denies being depressed. she declined meds and neurology consult at this time. Depression (Acute) Onset Date: Unknown Epilepsy (Acute) Onset Date: Unknown age 13 Hypertension (Chronic) Onset Date: Unknown Hypothyroid (Chronic) Onset Date: Unknown age 3 had goiter was treated w/ iodine Memory difficulties (Chronic) Onset Date: 04/11/15 Postconcussion syndrome (Acute) Onset Date: Unknown Seizure disorder (Chronic) Onset Date: 07/08/13 Shoulder dislocation (Acute) Onset Date: Unknown Shoulder pain, right (Acute) Onset Date: 11/11/12 some frozen shoulder sx., recommended impingement exercises and possible PT. she declined PT Tachycardia (Acute) Onset Date: Unknown Unsteadiness on feet (Acute) Onset Date: Unknown Weakness (Chronic) Onset Date: Unknown Abnormal mammogram Onset Date: Unknown Chicken pox Onset Date: Unknown Colon polyps Onset Date: 10/10/10 Bagan-polyps @ 25 cm and 20 cm. Dyspnea on exertion Onset Date: 04/11/13 Long-term use of high-risk medication Onset Date: 03/10/13 Measles Onset Date: Unknown Mumps Onset Date: Unknown Myalgia and myositis Onset Date: 08/05/12 Right patella fracture Onset Date: Unknown Tremor Onset Date: 11/11/12 Wrist fracture Onset Date: Unknown Surgical History: Surgical History (Last Reviewed 02/18/19 @ 17:44 by Rick Manuel RN) H/O reduction of closed fracture (Acute) Onset Date: 07/29/17 closed reduction of right distal radius fracture with manipulation under MAC anesthesia with short arm application Arcenio Jean PA-C History of hemiarthroplasty of left hip (Acute) Onset Date: 02/02/17 Left hip cemented juan-arthroplasty per Dr Busch H/O reduction of closed dislocation Onset Date: 04/29/16 closed reduction left shoulder dislocation with anesthesia Dr Busch S/P ANN MARIE (total abdominal hysterectomy) Onset Date: 1969 S/P colonoscopy Onset Date: 10/10/10 Bagan-polyps @ 25 cm & 20 cm.-both benign adenomatous polyps-procedure was only to 50 cm due to redundant colon, pt. will require barium enema for future colon screenings Family History: Family History (Last Reviewed 02/18/19 @ 17:44 by Rick Manuel RN) Father , 63 Cancer Arthritis Polio Mother , 71 Hypertension Heart disease Head injury Grandmother Alzheimers disease Social History: (Last Reviewed 02/18/19 @ 17:44 by Rick Manuel RN) Social History: Marital status: / household members: spouse current occupational status: retired Highest education level completed: high school graduate Service: No Tobacco: Smoking Status: Unknown if ever smoked Alcohol: alcohol intake: current alcohol intake frequency: holiday/special occasion Substance Use: substance use type: does not use Dietary Habits: caffeine: Yes Type: coffee, tea Marion/Shinto: marion/jewish: Advent Review Of Systems (GEN) - Review of Systems Generalized/Overall Review: Present: Weakness, Malaise EENTM: Present: No Symptoms Reported Respiratory: Present: No Symptoms Reported Cardiac: Present: No Symptoms Reported Abdominal: Present: No Symptoms Reported Genitourinary: Present: No Symptoms Reported Musculoskeletal: Present: No Symptoms Reported Neurological: Present: Weakness, Pre-existing Deficit - Advanced Alzheimer's dem entia Skin: Present: No Symptoms Reported Endocrine: Present: No Symptoms Reported Immunizations: IMMUNIZATION HX Immunizations Up to Date Yes History of Influenza Vaccine Yes Hx Pneumococcal Vaccination Yes Allergies/Adverse Reactions: Allergies Allergy/AdvReac Type Severity Reaction Status Date / Time buspirone AdvReac Mild Fatigue Verified 02/18/19 17:45 phenobarbital AdvReac Mild rash Verified 02/18/19 17:45 phenytoin sodium AdvReac Mild rash Verified 02/18/19 17:45 [From Dilantin] Home Medications: HOME MEDICATIONS Lisinopril [Zestril] 5 mg PO DAILY #30 tab 11/02/16 [Last Taken 03/14/17 07:00] Metoprolol Succinate 25 mg PO HS #30 tab.er.24h 11/02/16 [Last Taken 03/13/17 20:00] Acetaminophen 650 mg PO 0700,1100,1600,2000 02/02/17 [Last Taken 03/14/17 11:00] Sennosides/Docusate Sodium [Senna-Docusate Sodium Tablet] 1 tab PO HS 03/14/17 [Last Taken 03/13/17 20:00] saliva substitute combo no.9 15 ml MUCOUS MEMBRANE DAILY PRN 08/23/17 [Last Taken Unknown] citalopram 40 mg tablet 20 mg PO DAILY tab 08/24/17 [Last Taken Unknown] valproic acid (as sodium salt) 250 mg/5 mL syringe (FOR ORAL USE ONLY) 20 ml PO TID 08/24/17 [Last Taken Unknown] ALPRAZolam [Xanax] 0.25 mg PO DAILY 11/16/17 [Last Taken Unknown] Menthol/Zinc Oxide [Calmoseptine Ointment] 71 gm TOPICAL BID PRN 11/16/17 [Last Taken Unknown] cholecalciferol (vitamin D3) 2,000 unit capsule 2,000 unit PO DAILY 11/28/17 [Last Taken Unknown] clonazepam 1 mg tablet 0.5 mg PO HS tab 11/28/17 [Last Taken Unknown] levothyroxine 150 mcg capsule 150 mcg PO DAILY #45 cap 01/29/19 [Last Taken Unknown] Exam - Exam Vital Signs: Vital Signs - Last Taken Temp 36.0 C 02/18/19 18:15 Pulse 93 02/18/19 18:15 Resp 14 02/18/19 18:15 BP 113/53 02/18/19 18:15 Pulse Ox 97 02/18/19 18:15 Constitutional: Present: Obtunded, Elderly ENT Exam: Present: normal ENT inspection Eye Exam: bilateral eye: normal inspection, PERRL, EOMI Neck: Present: non-tender, limited range of motion Back Exam: Present: normal inspection Breasts: Present: Exam deferred Respiratory: Present: chest non-tender, lungs clear, normal breath sounds, no respiratory distress, no accessory muscle use Cardiovascular/Chest: Present: normal peripheral pulses, regular rate, rhythm, no chest tenderness, no edema, no gallop, no JVD, no murmur Peripheral Pulses: carotid (R): 2+, carotid (L): 2+, radial (R): 2+, radial (L): 2+ Abdomen: Present: Normal bowel sounds, soft, nontender, nondistended, no rebound tenderness, no hepatospenomegaly, no masses /Rectal: Present: Exam deferred Extremity: Present: normal range of motion, non-tender, normal inspection, no pedal edema, no calf tenderness, normal capillary refill Skin Exam: Present: normal color, warm/dry, no cyanosis Lymphatic: Present: no adenopathy Neurologic: Present: 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 - Unable to assess at present, motor weakness Appearance: Present: appropriate appearance, neat, impaired insight, impaired recent memory, impaired remote memory Eye contact: Present: other - Unable to cooperate or follow commands Thoughts: Present: incoherent Diagnostic Studies: Abnormal Lab Results 02/18/19 02/18/19 02/18/19 Range/Units 14:45 15:00 15:00 RBC 3.86 L (4.2-5.4) M/mm3 MCV 109.1 H (78-100) fl MCH 36.0 H (27-31) pg Lymphocytes % 19.4 L (20-51) % Neutrophils # 6.5 H (1.3-6.0) K/mm3 Sodium 159 H (132-142) mmol/L Plasma Sodium 160 H (130-142) mmol/L Potassium 2.6 L (3.4-4.6) mmol/L Chloride 115 H (97-106) mmol/L Carbon Dioxide 35.5 H (24-32.6) mmol/L BUN 52 H D (3-23) mg/dL Creatinine 1.84 H D (0.4-1.4) mg/dL Est GFR (Non-Af Amer) 28 L D (60-130) mL/min BUN/Creatinine Ratio 28.3 H (9.0-21.6) Random Glucose 150 H (70-110) mg/dL Lactic Acid, Venous 4.6 H* (0.4-2.0) mmol/L Troponin I 0.215 H* (0.00-0.10) ng/mL Albumin 3.1 L (3.4-5.0) gm/dl Urine Protein (NEGATIVE) mg/dL 02/18/19 02/18/19 Range/Units 15:15 18:26 RBC (4.2-5.4) M/mm3 MCV (78-100) fl MCH (27-31) pg Lymphocytes % (20-51) % Neutrophils # (1.3-6.0) K/mm3 Sodium (132-142) mmol/L Plasma Sodium (130-142) mmol/L Potassium (3.4-4.6) mmol/L Chloride (97-106) mmol/L Carbon Dioxide (24-32.6) mmol/L BUN (3-23) mg/dL Creatinine (0.4-1.4) mg/dL Est GFR (Non-Af Amer) (60-130) mL/min BUN/Creatinine Ratio (9.0-21.6) Random Glucose (70-110) mg/dL Lactic Acid, Venous 3.2 H* (0.4-2.0) mmol/L Troponin I (0.00-0.10) ng/mL Albumin (3.4-5.0) gm/dl Urine Protein 15 H (NEGATIVE) mg/dL Laboratory Results WBC 9.0 K/mm3 (4.0-10.5) 02/18/19 14:45 RBC 3.86 M/mm3 (4.2-5.4) L 02/18/19 14:45 Hgb 13.9 gm/dL (12.5-16.0) 02/18/19 14:45 Hct 42.1 % (37.0-47.0) 02/18/19 14:45 MCV 109.1 fl (78-100) H 02/18/19 14:45 MCH 36.0 pg (27-31) H 02/18/19 14:45 MCHC 33.0 g/dl (32-36) 02/18/19 14:45 RDW 13.7 % (11.5-14.0) 02/18/19 14:45 Plt Count 175 K/mm3 (150-450) 02/18/19 14:45 MPV 10.5 fl (8-12.5) 02/18/19 14:45 Immature Gran % (Auto) 0.30 % (0.001-0.429) 02/18/19 14:45 Immature Gran # (Auto) 0.03 K/mm3 (0.000-0.0310) 02/18/19 14:45 Neutrophils % 71.6 % (42-75.0) 02/18/19 14:45 Lymphocytes % 19.4 % (20-51) L 02/18/19 14:45 Monocytes % 8.4 % (0.0-9) 02/18/19 14:45 Eosinophils % 0.0 % (0.0-3.0) 02/18/19 14:45 Basophils % 0.3 % (0.0-1.0) 02/18/19 14:45 Nucleated RBC % 0.0 k/mm3 (0-1) 02/18/19 14:45 Neutrophils # 6.5 K/mm3 (1.3-6.0) H 02/18/19 14:45 Lymphocytes # 1.75 k/mm3 (1.5-3.5) 02/18/19 14:45 Monocytes # 0.8 k/mm3 (0.0-1.0) 02/18/19 14:45 Eosinophils # 0.0 k/mm3 (0.0-0.7) 02/18/19 14:45 Absolute Basophils 0.0 k/mm3 (0.0-0.1) 02/18/19 14:45 Sodium 159 mmol/L (132-142) H 02/18/19 15:00 Plasma Sodium 160 mmol/L (130-142) H 02/18/19 15:00 Potassium 2.6 mmol/L (3.4-4.6) L 02/18/19 15:00 Chloride 115 mmol/L (97-106) H 02/18/19 15:00 Carbon Dioxide 35.5 mmol/L (24-32.6) H 02/18/19 15:00 Anion Gap 11.1 mmol/L (6.8-13.8) 02/18/19 15:00 BUN 52 mg/dL (3-23) H D 02/18/19 15:00 Creatinine 1.84 mg/dL (0.4-1.4) H D 02/18/19 15:00 Est GFR (Non-Af Amer) 28 mL/min (60-130) L D 02/18/19 15:00 BUN/Creatinine Ratio 28.3 (9.0-21.6) H 02/18/19 15:00 Random Glucose 150 mg/dL (70-110) H 02/18/19 15:00 Lactic Acid, Venous 3.2 mmol/L (0.4-2.0) H* 02/18/19 18:26 Calcium 8.8 mg/dL (7.9-10.9) 02/18/19 15:00 Calcium Adj for Albumin 9.2 mg/dL (8.4-10.2) 02/18/19 15:00 Total Bilirubin 0.5 mg/dL (0.0-1.1) 02/18/19 15:00 AST 41 U/L (0-48) 02/18/19 15:00 ALT 26 U/L (19-67) 02/18/19 15:00 Alkaline Phosphatase 99 U/L (50-170) 02/18/19 15:00 Troponin I 0.215 ng/mL (0.00-0.10) H* 02/18/19 15:00 C-Reactive Prot, Quant Less than 0.2 mg/dL (0.0-0.9) 02/18/19 15:00 Total Protein 6.6 gm/dL (6.2-8.2) 02/18/19 15:00 Albumin 3.1 gm/dl (3.4-5.0) L 02/18/19 15:00 Procalcitonin 0.12 ng/mL (0.05-0.50) 02/18/19 15:00 Urine Color Dark yellow 02/18/19 15:15 Urine Appearance Clear (CLEAR) 02/18/19 15:15 Urine pH 6.0 pH (5.0-7.0) 02/18/19 15:15 Ur Specific [place] 1.020 SP.GR. (1.005-1.010) 02/18/19 15:15 Urine Protein 15 mg/dL (NEGATIVE) H 02/18/19 15:15 Urine Glucose (UA) Negative mg/dL (NEGATIVE) 02/18/19 15:15 Urine Ketones 5 mg/dL (NEGATIVE) 02/18/19 15:15 Urine Blood Negative /ul (NEGATIVE) 02/18/19 15:15 Urine Nitrate Negative (NEGATIVE) 02/18/19 15:15 Urine Bilirubin Negative mg/dl (NEGATIVE) 02/18/19 15:15 Prot Sulfosalicylic Acd 1+ mg/dL (0) 02/18/19 15:15 Urine Urobilinogen Normal EU/dl (NORMAL) 02/18/19 15:15 Ur Leukocyte Esterase Negative /ul (NEGATIVE) 02/18/19 15:15 Urine RBC None seen /hpf (0-5) 02/18/19 15:15 Urine WBC 0-5 /hpf (0-5) 02/18/19 15:15 Ur Epithelial Cells 0-5 /hpf (0-5) 02/18/19 15:15 Urine Bacteria None seen (NONE) 02/18/19 15:15 Urine Culture Comments No culture indicated 02/18/19 15:15 Assessment/Plan - Narrative Narrative: 1. Continue IV Rocephin and azithromycin 2. Recheck CBC and CMP tomorrow morning 3. Continue IV fluid volume replacement 4. Recheck lactic acid level in the morning. - Assessment/Plan (1) Sepsis Problem: Acute Qualifiers: Sepsis type: sepsis due to unspecified organism Sepsis acute organ dysfunction status: with acute organ dysfunction Severe sepsis acute organ dysfunction type: acute renal failure Acute renal failure type: with acute renal cortical necrosis (2) Hypernatremia Problem: Acute (3) Hypokalemia Problem: Acute (4) Alteration consciousness Problem: Acute (5) Pyuria Problem: Acute (6) Dementia Problem: Chronic Qualifiers: Dementia type: Alzheimer's disease Alzheimer's disease onset: late-onset (7) Weakness Problem: Chronic
[2019-02-18] MEDS: ENOXAPARIN SODIUM 40 MG/0.4 ML SYRG SC SCH (20:30)
[2019-02-19] MEDS: POTASSIUM CHLORIDE 20 MEQ in 0.5 NORMAL SALINE 1,000 ML IV SCH ×3 (00:46→19:53)
[2019-02-19] MEDS ORDERED: [UNRECOGNIZED DRUG - OTHER] IV SCH (01:00)
[2019-02-19] MEDS ORDERED: POTASSIUM CHLORIDE IV SCH (01:00)
[2019-02-19 07:15] LABS: Hematocrit 43.4 % (37.0-47.0); Hemoglobin 14.7 gm/dL (12.5-16.0); Mean Corpuscular Hemoglobin 32.2 pg (27-31); Mean Corpuscular Hgb Conc 33.9 g/dl (32-36); Mean Platelet Volume 12.3 fl (8-12.5); Red Blood Count 4.57 M/mm3 (4.2-5.4); Red Cell Distribution Width 13.2 % (11.5-14.0); White Blood Count 5.6 K/mm3 (4.0-10.5)
[2019-02-19 07:16] LABS: Platelet Count 74 K/mm3 (150-450)
[2019-02-19 07:17] LABS: Total Cells Counted 100
[2019-02-19 07:24] LABS: Albumin * 1.9 gm/dl (3.4-5.0); BUN/Creatinine Ratio 28.3 (9.0-21.6); Bilirubin, Total 0.5 mg/dL (0.0-1.1); Ca. Corrected For Albumin 8.7 mg/dL (8.4-10.2); Calcium * 7.3 mg/dL (7.9-10.9); Carbon Dioxide 22.9 mmol/L (24-32.6); Total Protein 4.9 gm/dL (6.2-8.2)
[2019-02-19 07:45] LABS: Atypical (Reactive) Lymph 1 % (0-2); Band 34 % (0-2.0); Immature Granulocyte 1 (0-1); Lymphocyte 4 % (20-51); Monocyte 10 % (0-9); Neutrophil 50 % (42-75); Neutrophil # 2.8 K/mm3 (1.3-6.0)
[2019-02-19 07:49] LABS: Anion Gap 13.8 mmol/L (6.8-13.8); Platelet Estimate Decreased (NORMAL); Potassium 3.7 mmol/L (3.4-4.6)
--- NOTE | 2019-02-19 18:28 | PN ---
Subjective - Date and Time Seen Date: 02/19/19 Time: 12:55 Subjective Narrative: Rosario is much more alert this morning. She is mumbling and saying words that do not make much sense but that is usually her baseline at the retirement. She did not seem to recognize me. She does not appear to be in any distress. Her sodium has corrected from 162 143 and the potassium has corrected from 2.6 up to 3.3.. Her CBC looks normal. There is no anemia. White count is now normal. Her lactic acid level has decreased to 1.8. Objective - Review of Systems Generalized/Overall Review: Reports: Weakness EENTM: Reports: No Symptoms Reported Respiratory: Reports: No Symptoms Reported Cardiac: Reports: No Symptoms Reported Abdominal: Reports: No Symptoms Reported Genitourinary Symptoms: Reports: No Symptoms Reported Musculoskeletal Complaints: Reports: No Symptoms Reported Neurological: Reports: Weakness - Generalized., Pre-existing Deficit - Advanced Alzheimer's disease. Skin: Reports: No Symptoms Reported Endocrine: Reports: No Symptoms Reported - Vitals Vitals: Last Vital Signs Temp 37.4 C 02/19/19 14:33 Pulse 92 02/19/19 16:58 Resp 14 02/19/19 14:33 BP 110/55 02/19/19 10:00 Pulse Ox 99 02/19/19 14:33 - Abnormal Lab Findings Abnormal Lab Findings: Abnormal Lab Results 02/18/19 02/19/19 02/19/19 Range/Units 18:26 06:15 06:15 MCH 32.2 H (27-31) pg Plt Count 74 L (150-450) K/mm3 Band Neuts % (Manual) 34 H (0-2.0) % Lymphocytes % (Manual) 4 L (20-51) % Monocytes % (Manual) 10 H (0-9) % Lymphocytes # (Manual) 0.2 L (1.5-3.5) k/mm3 Platelet Estimate Decreased L (NORMAL) Sodium 143 H (132-142) mmol/L Plasma Sodium 143 H (130-142) mmol/L Chloride 110 H (97-106) mmol/L Carbon Dioxide 22.9 L (24-32.6) mmol/L BUN 68 H (3-23) mg/dL Creatinine 2.40 H D (0.4-1.4) mg/dL Est GFR (Non-Af Amer) 21 L D (60-130) mL/min BUN/Creatinine Ratio 28.3 H (9.0-21.6) Lactic Acid, Venous 3.2 H* (0.4-2.0) mmol/L Calcium 7.3 L (7.9-10.9) mg/dL AST 63 H (0-48) U/L Total Protein 4.9 L (6.2-8.2) gm/dL Albumin 1.9 L (3.4-5.0) gm/dl - EKG/Xray Findings EKG: NSR EKG read: Interp. by me - Exam Constitutional: Present: Alert, Oriented x3, Cooperative, Well developed, Well nourished, No distress, Elderly ENT Exam: Present: normal ENT inspection, hearing grossly normal, pharynx normal Neck: Present: non-tender, limited range of motion Breasts: Present: Exam deferred Respiratory: Present: chest non-tender, lungs clear, normal breath sounds, no respiratory distress, no accessory muscle use Cardiovascular/Chest: Present: normal peripheral pulses, regular rate, rhythm, no chest tenderness, no edema, no gallop, no JVD, no murmur, no rub Abdomen: Present: Normal bowel sounds, soft, nontender, nondistended, no rebound tenderness, no hepatospenomegaly, no masses /Rectal: Present: Exam deferred Extremity: Present: normal range of motion, non-tender, normal inspection, no pedal edema, no calf tenderness, normal capillary refill Skin Exam: Present: normal color, warm/dry, no cyanosis Lymphatic: Present: no adenopathy Appearance: Present: appropriate appearance, appropriate insight, neat Eye contact: Present: cooperative, good eye contact, normal speech Thoughts: Present: normal thought pattern, no apparent hallucination Assessment/Plan Plan Narrative: 1. Slow IV rate to 83 cc an hour 2. Repeat morning lab of CBC, CMP, and lactic acid 3. Up in chair tomorrow 4. Progress diet 5. Continue IV antibiotic therapy - Problems/Diagnosis (1) Sepsis Problem: Acute Qualifiers: Sepsis type: sepsis due to unspecified organism Sepsis acute organ dysfu nction status: with acute organ dysfunction Severe sepsis acute organ dysfunction type: acute renal failure Acute renal failure type: with acute renal cortical necrosis (2) Hypernatremia Problem: Acute (3) Hypokalemia Problem: Acute (4) Alteration consciousness Problem: Acute (5) Pyuria Problem: Acute (6) Dementia Problem: Chronic Qualifiers: Dementia type: Alzheimer's disease Alzheimer's disease onset: late-onset (7) Weakness Problem: Chronic
[2019-02-19] MEDS: ENOXAPARIN SODIUM 40 MG/0.4 ML SYRG SC SCH (20:46)
[2019-02-20 06:36] LABS: Hematocrit 31.7 % (37.0-47.0); Hemoglobin 10.7 gm/dL (12.5-16.0); Mean Corpuscular Hemoglobin 35.4 pg (27-31); Mean Corpuscular Hgb Conc 33.8 g/dl (32-36); Mean Platelet Volume 10.6 fl (8-12.5); Neutrophil # 3.1 K/mm3 (1.3-6.0); Neutrophil % 57.7 % (42-75.0); Platelet Count 123 K/mm3 (150-450); Red Blood Count 3.02 M/mm3 (4.2-5.4); Red Cell Distribution Width 12.8 % (11.5-14.0); White Blood Count 5.3 K/mm3 (4.0-10.5)
[2019-02-20 06:54] LABS: Albumin * 2.1 gm/dl (3.4-5.0); Anion Gap 9.1 mmol/L (6.8-13.8); Bilirubin, Total 0.4 mg/dL (0.0-1.1); Ca. Corrected For Albumin 8.9 mg/dL (8.4-10.2); Calcium * 7.7 mg/dL (7.9-10.9); Carbon Dioxide 32.1 mmol/L (24-32.6); Potassium 3.2 mmol/L (3.4-4.6)
[2019-02-20] MEDS: POTASSIUM CHLORIDE 20 MEQ in 0.5 NORMAL SALINE 1,000 ML IV SCH (08:30)
--- NOTE | 2019-02-20 18:04 | PN ---
Subjective - Date and Time Seen Date: 02/20/19 Time: 07:30 Subjective Narrative: Rosario has had an uneventful night and seems better this morning. She has been on clear liquids and advance to full liquids which she has tolerated well. Her laboratory work shows sodium has increased slightly to 147 potassium is dropped slightly to 3.3 but still in reference range. The hemoglobin has dropped 4 g with rehydration from 14.7 to 10.7 g. Her BUN and creatinine have improved greatly and her EGFR is now 100. The urinalysis and culture and blood cultures are all no growth. The chest x-ray is normal. Her abdomen is soft. Bowel sounds are normal and she has had bowel movements. Auscultation of the heart and lungs is unremarkable and I do not hear any pericardial rub or adventitious sounds. The source of her sepsis is unknown at this time. I anticipate she can return to the senior care tomorrow. Objective - Review of Systems Generalized/Overall Review: Reports: No Symptoms Reported EENTM: Reports: No Symptoms Reported Respiratory: Reports: No Symptoms Reported Cardiac: Reports: No Symptoms Reported Abdominal: Reports: No Symptoms Reported Genitourinary Symptoms: Reports: No Symptoms Reported Musculoskeletal Complaints: Reports: No Symptoms Reported Neurological: Reports: Weakness Skin: Reports: No Symptoms Reported Endocrine: Reports: No Symptoms Reported - Vitals Vitals: Last Vital Signs Temp 36.5 C 02/20/19 16:12 Pulse 101 H 02/20/19 16:12 Resp 18 02/20/19 16:12 BP 109/85 02/20/19 16:12 Pulse Ox 98 02/20/19 16:12 - Abnormal Lab Findings Abnormal Lab Findings: Abnormal Lab Results 02/20/19 02/20/19 Range/Units 06:15 06:15 RBC 3.02 L (4.2-5.4) M/mm3 Hgb 10.7 L (12.5-16.0) gm/dL Hct 31.7 L (37.0-47.0) % MCV 105.0 H (78-100) fl MCH 35.4 H (27-31) pg Plt Count 123 L (150-450) K/mm3 Immature Gran % (Auto) 0.60 H (0.001-0.429) % Sodium 147 H (132-142) mmol/L Plasma Sodium 147 H (130-142) mmol/L Potassium 3.2 L (3.4-4.6) mmol/L Chloride 109 H (97-106) mmol/L BUN/Creatinine Ratio 29.0 H (9.0-21.6) Random Glucose 115 H D (70-110) mg/dL Calcium 7.7 L (7.9-10.9) mg/dL AST 55 H (0-48) U/L Total Protein 5.0 L (6.2-8.2) gm/dL Albumin 2.1 L (3.4-5.0) gm/dl - Exam Constitutional: Present: Alert, Oriented x3, Cooperative, Well developed, Well nourished, No distress ENT Exam: Present: normal ENT inspection, hearing grossly normal, pharynx normal, TMs normal Neck: Present: non-tender, full range of motion, supple Breasts: Present: Exam deferred Respiratory: Present: chest non-tender, lungs clear, normal breath sounds, no respiratory distress, no accessory muscle use Cardiovascular/Chest: Present: normal peripheral pulses, regular rate, rhythm, no chest tenderness, no edema, no gallop, no JVD, no murmur, no rub Abdomen: Present: Normal bowel sounds, soft, nontender, nondistended, no rebound tenderness, no hepatospenomegaly, no masses /Rectal: Present: Exam deferred Extremity: Present: normal range of motion, non-tender, normal inspection, no pedal edema, no calf tenderness, normal capillary refill Skin Exam: Present: normal color, warm/dry, no cyanosis Lymphatic: Present: no adenopathy Neurologic: Present: 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 Thoughts: Present: incoherent Assessment/Plan Plan Narrative: 1. Continue IV antibiotic therapy. 2. Continue IV fluids today but DC this evening and saline lock the IV 3. Repeat lab tomorrow morning including CBC and CMP 4. Anticipate discharge back to [facility] tomorrow morning - Problems/Diagnosis (1) Sepsis Problem: Acute Qualifiers: Sepsis type: sepsis due to unspecified organism Sepsis acute organ dysfunction status: with acute organ dysfunction Severe sepsis acute organ dysfunction type: acute renal failure Acute renal failure type: with acute renal cortical necrosis Severe sepsis shock status: with septic shock Qualified Code(s): A41.9 - Sepsis, unspecified organism; R65.21 - Severe sepsis with septic shock; N17.1 - Acute kidney failure with acute cortical necrosis (2) Hypernatremia Problem: Acute (3) Hypokalemia Problem: Acute (4) Alteration consciousness Problem: Acute (5) Pyuria Problem: Acute (6) Dementia Problem: Chronic Qualifiers: Dementia type: Alzheimer's disease Alzheimer's disease onset: late-onset Dementia behavioral disturbance: without behavioral disturbance Qualified Code(s): G30.1 - Alzheimer's disease with late onset; F02.80 - Dementia in other diseases classified elsewhere without behavioral disturbance (7) Weakness Problem: Chronic (8) Acute metabolic encephalopathy Problem: Acute (9) Septic shock Problem: Acute
[2019-02-20] MEDS: ENOXAPARIN SODIUM 40 MG/0.4 ML SYRG SC SCH (21:00)
[2019-02-21 08:46] LABS: Hematocrit 30.9 % (37.0-47.0); Hemoglobin 10.9 gm/dL (12.5-16.0); Mean Cell Volume 99.7 fl (78-100); Mean Corpuscular Hemoglobin 35.2 pg (27-31); Mean Corpuscular Hgb Conc 35.3 g/dl (32-36); Mean Platelet Volume 10.3 fl (8-12.5); Neutrophil # 3.7 K/mm3 (1.3-6.0); Neutrophil % 64.2 % (42-75.0); Platelet Count 130 K/mm3 (150-450); White Blood Count 5.7 K/mm3 (4.0-10.5)
[2019-02-21 08:53] LABS: Albumin * 2.3 gm/dl (3.4-5.0); Anion Gap 10.8 mmol/L (6.8-13.8); BUN/Creatinine Ratio 14.8 (9.0-21.6); Bilirubin, Total 0.5 mg/dL (0.0-1.1); Ca. Corrected For Albumin 8.4 mg/dL (8.4-10.2); Calcium * 7.4 mg/dL (7.9-10.9); Carbon Dioxide 28.3 mmol/L (24-32.6); Potassium 3.1 mmol/L (3.4-4.6); Total Protein 5.4 gm/dL (6.2-8.2)
[2019-02-21 13:11] VITALS: BP 134/88
--- NOTE | 2019-02-21 13:12 | DS ---
(1) Sepsis Problem: Acute Qualifiers: Sepsis type: sepsis due to unspecified organism Sepsis acute organ dysfunction status: with acute organ dysfunction Severe sepsis acute organ dysfunction type: acute renal failure Acute renal failure type: with acute renal cortical necrosis (2) Hypernatremia Problem: Acute (3) Hypokalemia Problem: Acute (4) Alteration consciousness Problem: Acute (5) Pyuria Problem: Acute (6) Dementia Problem: Chronic Qualifiers: Dementia type: Alzheimer's disease Alzheimer's disease onset: late-onset Dementia behavioral disturbance: without behavioral disturbance Qualified Code(s): G30.1 - Alzheimer's disease with late onset; F02.80 - Dementia in other diseases classified elsewhere without behavioral disturbance (7) Weakness Problem: Chronic (8) Acute metabolic encephalopathy Problem: Acute Date of Discharge:: 02/21/19 Hospital Course: Rosario Child [place] 74[place]year[place] [facility] [place] obt[place]ed and very dehydrated. She had acute kidney injury. Blood cultures urinalysis and urine culture were all negative for infection. Her white count was suppressed and her platelets were low at 75,000 initially. I suspect now that this may have been a viral process that is cause this syndrome. With rehydration and IV antibiotics she has improved. Her kidney function is completely returned to normal with creatinine at .18 this morning. She is starting to eat better now. She is still sleeping quite a lot. Her blood pressure is now stable. Initially her systolic had primo pped into the low 80s. Her hemoglobin dropped from 14.7 to 10.7 g with rehydration and is at 10.8 g this morning. Initially her potassium was low and her sodium high. She was started on half-normal saline with 20 of potassium and its improved to 147 sodium and 3.4 potassium. At this time she appears to be medically stable. She can be transferred from the hospital back to the [facility] this afternoon. Procedures Performed: none Care Plan Goals: Progress diet and activity as tolerated Plan of Treatment: Admit to [facility] for OT and PT Assessment: I will repeat a CBC and CMP in 1 week Results and Findings: Pending Mircobiology Results 02/18/19 14:50 Blood Blood Culture - Preliminary NO GROWTH AFTER 48 HOURS 02/18/19 15:00 Blood Blood Culture - Preliminary NO GROWTH AFTER 48 HOURS Lab Pending Results 02/18/19 14:45: WBC 9.0, RBC 3.86 L, Hgb 13.9, Hct 42.1, MCV 109.1 H, MCH 36.0 H, MCHC 33.0, RDW 13.7, Plt Count 175, MPV 10.5, Immature Gran % (Auto) 0.30, Immature Gran # (Auto) 0.03, Neutrophils % 71.6, Lymphocytes % 19.4 L, Monocytes % 8.4, Eosinophils % 0.0, Basophils % 0.3, Nucleated RBC % 0.0, Neutrophils # 6.5 H, Lymphocytes # 1.75, Monocytes # 0.8, Eosinophils # 0.0, Absolute Basophils 0.0 02/18/19 15:00: Sodium 159 H, Plasma Sodium 160 H, Potassium 2.6 L, Chloride 115 H, Carbon Dioxide 35.5 H, Anion Gap 11.1, BUN 52 H D, Creatinine 1.84 H D, Est GFR (Non-Af Amer) 28 L D, BUN/Creatinine Ratio 28.3 H, Random Glucose 150 H, Calcium 8.8, Calcium Adj for Albumin 9.2, Total Bilirubin 0.5, AST 41, ALT 26, Alkaline Phosphatase 99, Troponin I 0.215 H*, C-Reactive Prot, Quant Less than 0.2, Total Protein 6.6, Albumin 3.1 L 02/18/19 15:00: Lactic Acid, Venous 4.6 H* 02/18/19 15:00: Procalcitonin 0.12 02/18/19 15:15: Urine Color Dark yellow, Urine Appearance Clear, Urine pH 6.0, Ur Specific [place] 1.020, Urine Protein 15 H, Urine Glucose (UA) Negative, Urine Ketones 5, Urine Blood Negative, Urine Nitrate Negative, Urine Bilirubin Negative, Prot Sulfosalicylic Acd 1+, Urine Urobilinogen Normal, Ur Leukocyte Esterase Negative, Urine RBC None seen, Urine WBC 0-5, Ur Epithelial Cells 0-5, Urine Bacteria None seen, Urine Culture Comments No culture indicated 02/18/19 18:26: Lactic Acid, Venous 3.2 H* 02/18/19 23:23: Lactic Acid, Venous 1.5 02/19/19 06:15: WBC 5.6 D, RBC 4.57, Hgb 14.7, Hct 43.4, MCV 95.0, MCH 32.2 H, MCHC 33.9, RDW 13.2, Plt Count 74 L, MPV 12.3, Neutrophils % (Manual) 50, Band Neuts % (Manual) 34 H, Lymphocytes % (Manual) 4 L, Monocytes % (Manual) 10 H, Immature Granulocytes 1, Neutrophils # (Manual) 2.8, Lymphocytes # (Manual) 0.2 L, Monocytes # (Manual) 0.6, Atypic/Reactive Lymphs 1, Platelet Estimate Decreased L 02/19/19 06:15: Sodium 143 H, Plasma Sodium 143 H, Potassium 3.7 D, Chloride 110 H, Carbon Dioxide 22.9 L, Anion Gap 13.8, BUN 68 H, Creatinine 2.40 H D, Est GFR (Non-Af Amer) 21 L D, BUN/Creatinine Ratio 28.3 H, Random Glucose 88 D, Calcium 7.3 L, Calcium Adj for Albumin 8.7, Total Bilirubin 0.5, AST 63 H, ALT 31, Alkaline Phosphatase 60, Total Protein 4.9 L, Albumin 1.9 L 02/19/19 06:15: Lactic Acid, Venous 1.8 02/19/19 06:15: Troponin I 0.090 02/19/19 21:52: Lactic Acid, Venous 1.3 02/20/19 06:15: WBC 5.3, RBC 3.02 L, Hgb 10.7 L, Hct 31.7 L, MCV 105.0 H, MCH 35.4 H, MCHC 33.8, RDW 12.8, Plt Count 123 L, MPV 10.6, Immature Gran % (Auto) 0.60 H, Immature Gran # (Auto) 0.03, Neutrophils % 57.7, Lymphocytes % 31.6, Monocytes % 9.0, Eosinophils % 0.7, Basophils % 0.4, Nucleated RBC % 0.0, Neutrophils # 3.1, Lymphocytes # 1.69, Monocytes # 0.5, Eosinophils # 0.0, Absolute Basophils 0.0 02/20/19 06:15: Sodium 147 H, Plasma Sodium 147 H, Potassium 3.2 L, Chloride 109 H, Carbon Dioxide 32.1, Anion Gap 9.1, BUN 18 D, Creatinine 0.62, Est GFR (Non- Af Amer) 100 D, BUN/Creatinine Ratio 29.0 H, Random Glucose 115 H D, Calcium 7.7 L, Calcium Adj for Albumin 8.9, Total Bilirubin 0.4, AST 55 H, ALT 27, Alkaline Phosphatase 81, Total Protein 5.0 L, Albumin 2.1 L 02/20/19 06:15: Lactic Acid, Venous 1.1 02/21/19 08:30: WBC 5.7, RBC 3.10 L, Hgb 10.9 L, Hct 30.9 L, MCV 99.7, MCH 35.2 H, MCHC 35.3, RDW 12.0, Plt Count 130 L, MPV 10.3, Immature Gran % (Auto) 0.30, Immature Gran # (Auto) 0.02, Neutrophils % 64.2, Lymphocytes % 23.2, Monocytes % 11.5 H, Eosinophils % 0.5, Basophils % 0.3, Nucleated RBC % 0.0, Neutrophils # 3.7, Lymphocytes # 1.33 L, Monocytes # 0.7, Eosinophils # 0.0, Absolute Basophils 0.0 02/21/19 08:30: Sodium 136, Plasma Sodium 136, Potassium 3.1 L, Chloride 100, Carbon Dioxide 28.3, Anion Gap 10.8, BUN 8 D, Creatinine 0.54, Est GFR (Non-Af Amer) 117, BUN/Creatinine Ratio 14.8, Random Glucose 76 D, Calcium 7.4 L, Calcium Adj for Albumin 8.4, Total Bilirubin 0.5, AST 44, ALT 29, Alkaline Phosphatase 92, Total Protein 5.4 L, Albumin 2.3 L Discharge Location: [facility] Disposition: SNF Condition: Fair Level of Care: SNF Discharge Activity: Activity as tolerated Discharge Diet: [facility] soft Fpc Therapy: Physical Therapy, Occupation Therapy Referrals: Alfredito Paez DO [Primary Care Provider] - Additional Patient Instructions (free text): From [facility], please call and fax discharge information to them. CBC and CMP in 1 week Complete Home Medications List: Complete Home Medication List: Lisinopril [Zestril] 5 mg PO DAILY #30 tab 11/02/16 Metoprolol Succinate 25 mg PO HS #30 tab.er.24h 11/02/16 Acetaminophen 650 mg PO 0700,1100,1600,2000 02/02/17 Sennosides/Docusate Sodium [Senna-Docusate Sodium Tablet] 1 tab PO HS 03/14/17 citalopram 40 mg tablet 20 mg PO DAILY tab 08/24/17 valproic acid (as sodium salt) 250 mg/5 mL syringe (FOR ORAL USE ONLY) 20 ml PO TID 08/24/17 ALPRAZolam [Xanax] 0.25 mg PO DAILY 11/16/17 cholecalciferol (vitamin D3) 2,000 unit capsule 2,000 unit PO DAILY 11/28/17 clonazepam 1 mg tablet 0.5 mg PO HS tab 11/28/17 levothyroxine 150 mcg capsule 150 mcg PO DAILY #45 cap 01/29/19 Bisacodyl [Laxative] 10 mg PO Q6H PRN 02/18/19 Cefdinir [Omnicef Suspension] 250 mg PO DAILY #10 btl 02/21/19
== END 2019-02-21 13:50 | DRG 871 ==
LOC: ER 14:30 → MS 16:26
PROVIDERS: ADMIT Family Medicine; ATTEND Family Medicine
DX: E87.6 Hypokalemia; F02.80 Dementia in other diseases classified elsewhere, unspecified severity, without behavioral disturbance, psychotic disturbance, mood disturbance, and anxiety; G93.41 Metabolic encephalopathy; N17.1 Acute kidney failure with acute cortical necrosis; G30.1 Alzheimer's disease with late onset; E86.0 Dehydration; R82.81 Pyuria; E03.9 Hypothyroidism, unspecified; E87.0 Hyperosmolality and hypernatremia; R65.20 Severe sepsis without septic shock; A41.9 Sepsis, unspecified organism; I10 Essential (primary) hypertension
CPT/HCPCS: 36415; 71010; 71045; 80053; 81001; 83605; 84145; 84484; 85007; 85025; 86140; 87040; 87081; 93005; 96361; 96365; 99284; 99285